=== PATIENT | female | born 1940 ===

== ENCOUNTER 2016-08-15 21:19 | Outpatient (CLI) | payer MEDICARE, BC | END 2016-08-15 21:20 | disposition critical access hospital (66) | DX: R53.1 Weakness (principal); R10.11 Right upper quadrant pain | CPT/HCPCS: A0425; A0429 ==

== ENCOUNTER 2016-08-15 21:43 | Emergency (ER) | payer MEDICARE, BC ==
[2016-08-15] MEDS ORDERED: SODIUM CHLORIDE 0.9% 1,000 ML IV ONE ×2 (21:50→23:32)
[2016-08-15 22:19] LABS: BASOPHILS % (AUTO) 0.6 %; EOSINOPHILS % (AUTO) 1.1 %; HCT - HEMATOCRIT 40.2 % (37.0-47.0); HGB - HEMOGLOBIN 13.9 g/dL (12.0-16.0); LYMPHOCYTES # (AUTO) 1.2 10^3/uL (1.5-3.5); LYMPHOCYTES % (AUTO) 27.7 %; MEAN CORPUSCULAR HEMOGLOBIN 38.6 pg (27.0-31.0); MEAN CORPUSCULAR HGB CONC 34.7 g/dL (32.0-36.0); MEAN CORPUSCULAR VOLUME 111.4 fL (81.0-99.0); MEAN PLATELET VOLUME 6.6 fL (7.9-10.8); MONOCYTES # (AUTO) 0.5 10^3/uL (0.0-1.0); MONOCYTES % (AUTO) 11.8 %; NEUTROPHILS # (AUTO) 2.5 10^3/uL (1.5-6.6); NEUTROPHILS % (AUTO) 58.8 %; NUCLEATED RED BLOOD CELLS AUTO 0.1 /100WBC; RED BLOOD COUNT 3.61 10^6/uL (4.20-5.40); RED CELL DISTRIBUTION WIDTH 13.6 % (12.0-15.0); UNCORRECTED WHITE BLOOD COUNT 4.3 x10^3/uL; WHITE BLOOD COUNT 4.3 x10^3/uL (4.8-10.8)
[2016-08-15 22:29] LABS: ALBUMIN/GLOBULIN RATIO 1.6 (1.0-2.2); BILIRUBIN,TOTAL 0.6 mg/dL (0.2-1.0); BUN - BLOOD UREA NITROGEN < 5 mg/dL (6-20); CALCIUM 8.6 mg/dL (8.5-10.3); CARBON DIOXIDE - CO2 24 mmol/L (21-32); CHLORIDE 95 mmol/L (101-111); CREATININE 0.5 mg/dL (0.4-1.0); GFR - MDRD 121 (>89); GLUCOSE 109 mg/dL (70-100); LIPASE 30 U/L (22-51); POTASSIUM 4.2 mmol/L (3.5-5.0); SODIUM 131 mmol/L (135-145); TOTAL PROTEIN 6.3 g/dL (6.7-8.2)
[2016-08-15 22:35] LABS: NP AUTO DIFFERENTIAL? NO; NP MAN DIFFERENTIAL? YES; PLATELET ESTIMATE, MANUAL NORMAL (130-450,000) (NORMAL); PLATELET MORPHOLOGY NORMAL APPEARANCE (NORMAL)
[2016-08-15 22:51] LABS: BILIRUBIN,URINE NEGATIVE (NEGATIVE)
[2016-08-15 22:52] LABS: UA w/ MICROSCOPIC CHARGE YES
[2016-08-15 22:58] LABS: UR CULTURE IF IND INDICATED
--- NOTE | 2016-08-16 00:34 | ED Physician Documentation ---
History of Present Illness - Stated complaint Stated Complaint: WEAKNESS - Chief complaint Chief Complaint: General - History obtained from History obtained from: Patient, Family, EMS - History of Present Illness Timing: Today - Additonal information Additional information: 75-year-old female found at home to be unable to ambulate adequately and significantly weak she did not have a fall and has not injured herself she does state that she has not been drinking much in way of fluids she did have some alcohol today. Review of Systems Constitutional: denies: Fever, Chills, Myalgias, Fatigue Eyes: denies: Decreased vision Ears: denies: Ear pain Nose: denies: Congestion Throat: denies: Sore throat Cardiac: denies: Chest pain / pressure, Palpitations, Pedal edema Respiratory: denies: Dyspnea, Cough GI: denies: Abdominal Pain, Nausea, Vomiting : denies: Dysuria, Frequency Skin: denies: Rash Musculoskeletal: denies: Neck pain, Back pain, Extremity pain Neurologic: reports: Generalized weakness. denies: Focal weakness, Numbness, Headache, Head injury, LOC PD PAST MEDICAL HISTORY - Past Medical History Past Medical History: Yes Cardiovascular: Congestive heart failure Respiratory: Asthma - Past Surgical History Past Surgical History: No - Present Medications Home Medications: Ambulatory Orders Medication Instructions Recorded Confirmed Sulfamethoxazole/Trimethoprim 1 each PO BID #14 tablet 08/16/16 [Sulfamethoxazole-Tmp Ds Tablet] - Allergies Allergies/Adverse Reactions: Allergies Allergy/AdvReac Type Severity Reaction Status Date / Time Penicillins Allergy Severe Hives Verified 08/15/16 22:12 - Social History Does the pt smoke?: No Smoking Status: Never smoker Does the pt drink ETOH?: Yes ETOH Use: Wine Does the pt have substance abuse?: No - Immunizations Immunizations are current?: Yes - POLST Patient has POLST: No PD ED PE NORMAL - Vitals Vital signs reviewed: Yes (Tachycardic) - General General: No acute distress, Well developed/nourished, Other (Alcohol on breath) - HEENT HEENT: Atraumatic, PERRL, EOMI - Neck Neck: Supple, no meningeal sign, No bony TTP - Cardiac Cardiac: RRR, No murmur - Respiratory Respiratory: No respiratory distress, Clear bilaterally - Abdomen Abdomen: Soft, Non tender - Back Back: No CVA TTP, No spinal TTP - Derm Derm: Normal color, Warm and dry, No rash - Extremities Extremities: No deformity, No edema - Neuro Neuro: No motor deficit, No sensory deficit - Psych Psych: Normal mood, Normal affect Results - Vitals Vitals: Vital Signs - 24 hr 08/15/16 08/15/16 08/15/16 21:46 22:23 23:16 Temperature 36.7 C Heart Rate 103 H 110 H 108 H Respiratory 18 16 18 Rate Blood Pressure 129/78 121/66 128/59 L O2 Saturation 97 93 96 08/16/16 00:33 Temperature 36.9 C Heart Rate 113 H Respiratory 15 Rate Blood Pressure 115/68 O2 Saturation 94 Oxygen O2 Source Room air - Labs Labs: Laboratory Tests 08/15/16 08/15/16 08/15/16 22:05 22:05 22:05 WBC 4.3 L RBC 3.61 L Hgb 13.9 Hct 40.2 MCV 111.4 H MCH 38.6 H MCHC 34.7 RDW 13.6 Plt Count 240 MPV 6.6 L Neut # 2.5 Lymph # 1.2 L Weston # 0.5 Eos # 0.0 Baso # 0.0 Absolute Nucleated RBC 0.00 Band Neuts % (Manual) Not Reportable Nucleated RBCs 0.1 Differential Comment MANUAL=AUTO DIFF Manual Slide Review Indicated Platelet Estimate NORMAL (130-450,000) Platelet Morphology NORMAL APPEARANCE RBC Morph Micro Appear 3+ MACROCYTOSIS Sodium 131 L Potassium 4.2 Chloride 95 L Carbon Dioxide 24 Anion Gap 12.0 BUN < 5 L Creatinine 0.5 Estimated GFR (MDRD) 121 Glucose 109 H Calcium 8.6 Total Bilirubin 0.6 AST 65 H ALT 49 Alkaline Phosphatase 68 Troponin I < 0.04 Total Protein 6.3 L Albumin 3.9 Globulin 2.4 Albumin/Globulin Ratio 1.6 Lipase 30 Urine Color Urine Clarity Urine pH Ur Specific [place] Urine Protein Urine Glucose (UA) Urine Ketones Urine Occult Blood Urine Nitrite Urine Bilirubin Urine Urobilinogen Ur Leukocyte Esterase Urine RBC Urine WBC Ur Squamous Epith Cells Urine Bacteria Ur Microscopic Review Urine Culture Comments Ethyl Alcohol 223.6 08/15/16 22:41 WBC RBC Hgb Hct MCV MCH MCHC RDW Plt Count MPV Neut # Lymph # Weston # Eos # Baso # Absolute Nucleated RBC Band Neuts % (Manual) Nucleated RBCs Differential Comment Manual Slide Review Platelet Estimate Platelet Morphology RBC Morph Micro Appear Sodium Potassium Chloride Carbon Dioxide Anion Gap BUN Creatinine Estimated GFR (MDRD) Glucose Calcium Total Bilirubin AST ALT Alkaline Phosphatase Troponin I Total Protein Albumin Globulin Albumin/Globulin Ratio Lipase Urine Color YELLOW Urine Clarity CLOUDY Urine pH 6.0 Ur Specific [place] <=1.005 Urine Protein NEGATIVE Urine Glucose (UA) NEGATIVE Urine Ketones NEGATIVE Urine Occult Blood SMALL H Urine Nitrite POSITIVE H Urine Bilirubin NEGATIVE Urine Urobilinogen 1 (NORMAL) Ur Leukocyte Esterase TRACE H Urine RBC 0-5 Urine WBC 4-5 Ur Squamous Epith Cells NONE SEEN Urine Bacteria Many H Ur Microscopic Review INDICATED Urine Culture Comments INDICATED Ethyl Alcohol Procedures - IVC sono (time) 2154 Bedside IVC sono: IVC measures (cm) (0.66), IVC collapsed c insp (cm) (complete) , Significant dehydration PD MEDICAL DECISION MAKING - ED course Complexity details: reviewed results, re-evaluated patient, considered differential, d/w patient, d/w family ED course: 75-year-old female who has been suffering for 2 years from postherpetic neuralgia on her right side was found to be extremely weak tonight and was exhibiting an ataxic gait. The ambulance is called and here on arrival to the emergency department she is found to be significantly dehydrated and she did have alcohol on her breath. The blood alcohol level was obtained and was markedly elevated. Departure - Departure Disposition: 01 Home, Self Care Clinical Impression: Dehydration Alcohol intoxication Qualifiers: Complication of substance-induced condition: with unspecified complication Qualified Code(s): F10.129 - Alcohol abuse with intoxication, unspecified Urinary tract infection Qualifiers: Urinary tract infection type: acute cystitis Hematuria presence: with hematuria Qualified Code(s): N30.01 - Acute cystitis with hematuria Condition: Stable Instructions: ED Dehydration, ED Alcohol Intoxication, ED UTI Cystitis Female Follow-Up: Carlita Robledo ARNP [Physician No Access] - Prescriptions: Sulfamethoxazole/Trimethoprim [Sulfamethoxazole-Tmp Ds Tablet] 1 each PO BID # 14 tablet
[2016-08-16] MEDS ORDERED: cefTRIAXone 1 GM in SODIUM CHLORIDE 0.9% MINIBAG 100 ML IV STA (00:36)
[2016-08-16] MEDS ORDERED: cefTRIAXone 1 GM VIAL ONE (00:48)
[2016-08-16 01:30] VITALS: BP 133/76
== END 2016-08-16 01:45 | disposition home or self-care (01) ==
LOC: EDUNIT# → ED 21:43
DX: E86.0 Dehydration (principal); F10.129 Alcohol abuse with intoxication, unspecified; N30.01 Acute cystitis with hematuria
CPT/HCPCS: 36415; 80053; 81001; 83690; 84484; 85025; 87077; 87086; 87181; 93005; 96365; 99284; G0480; 80320; 81003

== ENCOUNTER 2016-10-23 14:47 | Outpatient (CLI) | payer MEDICARE, BC ==
[2016-10-23 17:51] LABS: BASOPHILS # (AUTO) 0.1 10^3/uL (0.0-0.1); BASOPHILS % (AUTO) 0.7 %; EOSINOPHILS # (AUTO) 0.1 10^3/uL (0.0-0.7); EOSINOPHILS % (AUTO) 0.9 %; HCT - HEMATOCRIT 42.7 % (37.0-47.0); HGB - HEMOGLOBIN 14.3 g/dL (12.0-16.0); LYMPHOCYTES # (AUTO) 1.2 10^3/uL (1.5-3.5); LYMPHOCYTES % (AUTO) 14.6 %; MEAN CORPUSCULAR HEMOGLOBIN 38.3 pg (27.0-31.0); MEAN CORPUSCULAR HGB CONC 33.6 g/dL (32.0-36.0); MEAN CORPUSCULAR VOLUME 113.9 fL (81.0-99.0); MEAN PLATELET VOLUME 8.6 fL (7.9-10.8); MONOCYTES # (AUTO) 0.7 10^3/uL (0.0-1.0); MONOCYTES % (AUTO) 8.9 %; NEUTROPHILS % (AUTO) 74.9 %; NUCLEATED RED BLOOD CELLS AUTO 0.1 /100WBC; RED BLOOD COUNT 3.75 10^6/uL (4.20-5.40); RED CELL DISTRIBUTION WIDTH 13.7 % (12.0-15.0)
[2016-10-23 18:16] LABS: ALBUMIN/GLOBULIN RATIO 1.3 (1.0-2.2); BILIRUBIN,TOTAL 0.7 mg/dL (0.2-1.0); BUN - BLOOD UREA NITROGEN 5 mg/dL (6-20); CALCIUM 9.4 mg/dL (8.5-10.3); CARBON DIOXIDE - CO2 29 mmol/L (21-32); CHLORIDE 99 mmol/L (101-111); CHOL/HDL RATIO 3.4 (<4.4); CHOLESTEROL 164 mg/dL; CREATININE 0.6 mg/dL (0.4-1.0); GFR - MDRD 98 (>89); GLUCOSE 92 mg/dL (70-100); HDL CHOLESTEROL 48 mg/dL; LDL/HDL RATIO 2.1 (<4.4); POTASSIUM 3.7 mmol/L (3.5-5.0); SODIUM 136 mmol/L (135-145); TOTAL PROTEIN 6.9 g/dL (6.7-8.2); TRIGLYCERIDES 71 mg/dL; VLDL CHOLESTEROL 14 mg/dL
== END 2016-10-23 14:48 | disposition home or self-care (01) ==
LOC: LAB.F 14:47
PROVIDERS: ATTEND Internal Medicine
DX: R35.8 Other polyuria (principal); I50.9 Heart failure, unspecified; R32 Unspecified urinary incontinence; R06.00 Dyspnea, unspecified
CPT/HCPCS: 36415; 80053; 80061; 81001; 83036; 83880; 84443; 85025

== ENCOUNTER 2016-10-25 14:42 | Outpatient (CLI) | payer MEDICARE, BC ==
[2016-10-25 17:40] LABS: BILIRUBIN,URINE NEGATIVE (NEGATIVE)
== END 2016-10-25 14:43 ==
LOC: LAB.R 14:42
PROVIDERS: ATTEND Internal Medicine
DX: R35.8 Other polyuria (principal); I50.9 Heart failure, unspecified; R32 Unspecified urinary incontinence
CPT/HCPCS: 81001

== ENCOUNTER 2016-11-07 11:11 | Outpatient (CLI) | payer MEDICARE, BC ==
[2016-11-07 18:47] LABS: HEMOGLOBIN A1C 0.49 g/dL; IMMATURE RETIC FRACTION 0.52; RED BLOOD COUNT 4.44 10^6/uL (4.20-5.40)
[2016-11-07 19:10] LABS: FOLATE 6.24 ng/mL (5.90 - >24.8)
== END 2016-11-07 11:12 | disposition home or self-care (01) ==
LOC: LAB.F 11:11
PROVIDERS: ATTEND Internal Medicine
DX: D75.89 Other specified diseases of blood and blood-forming organs (principal); R20.2 Paresthesia of skin; R74.0 Nonspecific elevation of levels of transaminase and lactic acid dehydrogenase [LDH]
CPT/HCPCS: 36415; 82607; 82746; 83036; 84450; 84460; 85044

== ENCOUNTER 2016-11-13 11:21 | Outpatient (CLI) | payer MEDICARE, BC ==
--- NOTE | 2016-11-14 16:08 | Mammography Report ---
DIGITAL SCREENING MAMMOGRAM: 11/13/2016 CLINICAL INDICATION: A 75-year-old nulliparous patient with history of benign biopsy, for screening. COMPARISON: 07/2014, 02/2012, 05/2009. TECHNIQUE: Routine CC and MLO projections were obtained of the breasts. FINDINGS: The breasts again demonstrate heterogeneously dense fibroglandular parenchyma bilaterally. Intramammary lymph nodes are stable. No suspicious masses, clustered microcalcifications, or regions of architectural distortion are identified. IMPRESSION: BENIGN FINDINGS. RECOMMENDATION: ROUTINE ANNUAL SCREENING UNLESS OTHERWISE CLINICALLY INDICATED. BIRADS CATEGORY 2-BENIGN FINDINGS. STANDARD QUALIFYING STATEMENTS 1. This examination was reviewed with the aid of Computer-Aided Detection (CAD). 2. A negative or benign imaging report should not delay biopsy if clinically suspicious findings are present. Consider surgical consultation if warranted. More than 5% of cancers are not identified by i maging. 3. Dense breasts may obscure an underlying neoplasm. JOB #: [id number] EXT JOB #:[id number]
== END 2016-11-13 11:22 | disposition home or self-care (01) ==
LOC: DI.S 11:21
PROVIDERS: ATTEND Internal Medicine
DX: Z12.31 Encounter for screening mammogram for malignant neoplasm of breast (principal)
CPT/HCPCS: 77067

== ENCOUNTER 2017-09-26 12:23 | Outpatient (CLI) | payer MEDICARE, BC | END 2017-09-26 12:24 | disposition home or self-care (01) | LOC: RT 12:23 | PROVIDERS: ATTEND Internal Medicine Cardiovascular Disease | DX: I49.9 Cardiac arrhythmia, unspecified (principal) | CPT/HCPCS: 93005 ==

== ENCOUNTER 2019-01-06 09:31 | Outpatient (CLI) | payer MEDICARE, BC ==
[2019-01-06 17:11] LABS: BASOPHILS # (AUTO) 0.1 10^3/uL (0.0-0.1); BASOPHILS % (AUTO) 0.9 %; EOSINOPHILS # (AUTO) 0.3 10^3/uL (0.0-0.7); HGB - HEMOGLOBIN 14.9 g/dL (12.0-16.0); LYMPHOCYTES # (AUTO) 1.5 10^3/uL (1.5-3.5); LYMPHOCYTES % (AUTO) 22.7 %; MEAN CORPUSCULAR HEMOGLOBIN 34.7 pg (27.0-31.0); MEAN CORPUSCULAR HGB CONC 32.9 g/dL (32.0-36.0); MEAN CORPUSCULAR VOLUME 105.3 fL (81.0-99.0); MEAN PLATELET VOLUME 9.6 fL (7.9-10.8); MONOCYTES # (AUTO) 0.7 10^3/uL (0.0-1.0); MONOCYTES % (AUTO) 10.9 %; NEUTROPHILS # (AUTO) 4.1 10^3/uL (1.5-6.6); NEUTROPHILS % (AUTO) 61.1 %; PLT - PLATELET COUNT 293 10^3/uL (130-450); RED CELL DISTRIBUTION WIDTH 11.7 % (12.0-15.0); WHITE BLOOD COUNT 6.7 x10^3/uL (4.8-10.8)
[2019-01-06 17:28] LABS: ALBUMIN 4.5 g/dL (3.2-5.5); ALBUMIN/GLOBULIN RATIO 1.6 (1.0-2.2); CALCIUM 9.1 mg/dL (8.5-10.3); CREATININE 0.5 mg/dL (0.4-1.0); TOTAL PROTEIN 7.4 g/dL (6.7-8.2)
== END 2019-01-06 09:32 | disposition home or self-care (01) ==
LOC: LAB.S 09:31
PROVIDERS: ATTEND Physician Assistant Medical
DX: I50.9 Heart failure, unspecified (principal); D75.89 Other specified diseases of blood and blood-forming organs
CPT/HCPCS: 36415; 80053; 85025

== ENCOUNTER 2020-02-08 11:00 | Outpatient (CLI) | payer MEDICARE, BC | END 2020-02-08 23:59 | disposition home or self-care (01) | LOC: LAB.R 11:00 | PROVIDERS: ATTEND Physician Assistant Medical | DX: B35.4 Tinea corporis (principal); L03.116 Cellulitis of left lower limb | CPT/HCPCS: 87070; 87077; 87181; 87205 ==

== ENCOUNTER 2020-10-08 10:29 | Outpatient (CLI) | payer MEDICARE, BC ==
--- NOTE | 2020-10-08 11:09 | XRAY Report ---
PROCEDURE: Chest 2 View X-Ray INDICATIONS: HEART FAILURE TECHNIQUE: 2 view(s) of the chest. COMPARISON: March 28, 2015 chest x-ray FINDINGS: Surgical changes and devices: None. Lungs and pleura: No pleural effusions or pneumothorax. Lungs are clear. Mediastinum: Mediastinal contours are normal. Heart size is normal. Bones and chest wall: Posterolateral right sixth rib fracture. Soft tissues appear unremarkable. IMPRESSION: No acute cardiopulmonary findings. Posterolateral right sixth rib fracture. Reviewed by: Chad Galvez on 10/08/2020 10:08 AM DEANDRA Approved by: Chad Galvez on 10/08/2020 10:08 AM DEANDRA Station ID: [id number]
== END 2020-10-08 23:59 | disposition home or self-care (01) ==
LOC: DI.S 10:29
PROVIDERS: ATTEND Emergency Medicine
DX: I50.9 Heart failure, unspecified (principal); S22.31XA Fracture of one rib, right side, initial encounter for closed fracture

== ENCOUNTER 2021-02-21 08:48 | Outpatient (CLI) | payer MEDICARE, BC ==
[2021-02-21 14:35] LABS: BASOPHILS # (AUTO) 0.1 10^3/uL (0.0-0.1); BASOPHILS % (AUTO) 0.9 %; EOSINOPHILS # (AUTO) 0.1 10^3/uL (0.0-0.7); EOSINOPHILS % (AUTO) 1.9 %; HCT - HEMATOCRIT 45.7 % (37.0-47.0); HGB - HEMOGLOBIN 15.3 g/dL (12.0-16.0); LYMPHOCYTES # (AUTO) 1.3 10^3/uL (1.5-3.5); LYMPHOCYTES % (AUTO) 16.7 %; MEAN CORPUSCULAR HGB CONC 33.5 g/dL (32.0-36.0); MEAN CORPUSCULAR VOLUME 110.4 fL (81.0-99.0); MEAN PLATELET VOLUME 9.6 fL (7.9-10.8); MONOCYTES # (AUTO) 0.8 10^3/uL (0.0-1.0); NEUTROPHILS # (AUTO) 5.2 10^3/uL (1.5-6.6); PLT - PLATELET COUNT 398 10^3/uL (130-450); RED BLOOD COUNT 4.14 10^6/uL (4.20-5.40); RED CELL DISTRIBUTION WIDTH 11.5 % (12.0-15.0); WHITE BLOOD COUNT 7.5 x10^3/uL (4.8-10.8)
[2021-02-21 15:07] LABS: SLIDE REVIEW? Indicated
[2021-02-21 15:15] LABS: ALBUMIN 4.1 g/dL (3.2-5.5); ALBUMIN/GLOBULIN RATIO 1.3 (1.0-2.2); ALKALINE PHOSPHATASE 70 IU/L (42-121); ALT ALANINE AMINOTRANSFERASE 13 IU/L (10-60); AST ASPARTATE AMINOTRANSFERASE 23 IU/L (10-42); BILIRUBIN,TOTAL 1.1 mg/dL (0.2-1.0); BUN - BLOOD UREA NITROGEN 8 mg/dL (6-20); CALCIUM 9.5 mg/dL (8.5-10.3); CARBON DIOXIDE - CO2 27 mmol/L (21-32); CHLORIDE 97 mmol/L (101-111); CHOL/HDL RATIO 3.1 (<4.4); CHOLESTEROL 225 mg/dL; CREATININE 0.7 mg/dL (0.4-1.0); GFR - MDRD 81 (>89); GLUCOSE 98 mg/dL (70-100); HDL CHOLESTEROL 73 mg/dL; LDL CHOLESTEROL,CALCULATED 142 mg/dL; LDL/HDL RATIO 1.9 (<4.4); POTASSIUM 4.2 mmol/L (3.5-5.0); SODIUM 136 mmol/L (135-145); TOTAL PROTEIN 7.2 g/dL (6.7-8.2); TRIGLYCERIDES 49 mg/dL; VLDL CHOLESTEROL 10 mg/dL
[2021-02-21 15:16] LABS: THYROID STIMULATING HORMONE 1.05 uIU/mL (0.34-5.60)
[2021-02-21 16:28] LABS: RBC MORPHOLOGY (MULTIPLE) 2+ MACROCYTOSIS (NORMAL)
[2021-02-21 16:29] LABS: PLATELET ESTIMATE, MANUAL NORMAL (130-450,000) (NORMAL); PLATELET MORPHOLOGY NORMAL APPEARANCE (NORMAL)
== END 2021-02-21 08:49 | disposition home or self-care (01) ==
LOC: LAB.S 08:48
PROVIDERS: ATTEND Registered Nurse
DX: I73.9 Peripheral vascular disease, unspecified (principal); I87.2 Venous insufficiency (chronic) (peripheral); I11.0 Hypertensive heart disease with heart failure; I50.9 Heart failure, unspecified; D75.89 Other specified diseases of blood and blood-forming organs
CPT/HCPCS: 36415; 80053; 80061; 83721; 84443; 85025

== ENCOUNTER 2022-08-06 08:55 | Outpatient (CLI) | payer MEDICARE, BC | END 2022-08-06 23:59 | disposition critical access hospital (66) | LOC: EMS 08:55 | DX: R53.1 Weakness (principal); R05.9 Cough, unspecified; R32 Unspecified urinary incontinence; R09.89 Other specified symptoms and signs involving the circulatory and respiratory systems | CPT/HCPCS: A0425; A0429 ==

== ENCOUNTER 2022-08-06 09:19 | Inpatient (IN) | payer MEDICARE, BC ==
--- NOTE | 2022-08-06 09:57 | XRAY Report ---
PROCEDURE: Chest 1 View X-Ray INDICATIONS: chest pain TECHNIQUE: One view of the chest was acquired. COMPARISON: None. FINDINGS: Surgical changes and devices: None. Lungs and pleura: Patchy left basilar airspace opacity. Mediastinum: Mediastinal contours appear normal. Heart size is normal. Bones and chest wall: No suspicious bony lesions. Overlying soft tissues appear unremarkable. Hea led rib fracture deformities. IMPRESSION: Patchy left basilar airspace opacity, either atelectasis or infection. Reviewed by: Andrew Brandt on 08/06/2022 9:55 AM PDT Approved by: Andrew Brandt on 08/06/2022 9:55 AM PDT Station ID: [id number]
[2022-08-06 10:01] LABS: BASOPHILS % (AUTO) 0.3 %; HCT - HEMATOCRIT 44.3 % (37.0-47.0); HGB - HEMOGLOBIN 15.7 g/dL (12.0-16.0); LYMPHOCYTES # (AUTO) 0.4 10^3/uL (1.5-3.5); LYMPHOCYTES % (AUTO) 3.1 %; MEAN CORPUSCULAR HEMOGLOBIN 37.7 pg (27.0-31.0); MEAN CORPUSCULAR HGB CONC 35.4 g/dL (32.0-36.0); MEAN CORPUSCULAR VOLUME 106.5 fL (81.0-99.0); MEAN PLATELET VOLUME 9.6 fL (7.9-10.8); MONOCYTES # (AUTO) 1.6 10^3/uL (0.0-1.0); MONOCYTES % (AUTO) 13.8 %; NEUTROPHILS # (AUTO) 9.7 10^3/uL (1.5-6.6); NEUTROPHILS % (AUTO) 82.5 %; PLT - PLATELET COUNT 154 10^3/uL (130-450); RED BLOOD COUNT 4.16 10^6/uL (4.20-5.40); RED CELL DISTRIBUTION WIDTH 11.2 % (12.0-15.0); WHITE BLOOD COUNT 11.8 x10^3/uL (4.8-10.8)
[2022-08-06 10:03] LABS: SLIDE REVIEW? Indicated
[2022-08-06 10:13] LABS: ALBUMIN 3.8 g/dL (3.2-5.5); ALBUMIN/GLOBULIN RATIO 1.1 (1.0-2.2); BILIRUBIN,TOTAL 1.4 mg/dL (0.2-1.0); CALCIUM 8.8 mg/dL (8.5-10.3); CREATININE 0.6 mg/dL (0.4-1.0); POTASSIUM 3.5 mmol/L (3.5-5.0); TOTAL PROTEIN 7.3 g/dL (6.7-8.2)
[2022-08-06 10:17] LABS: PLATELET ESTIMATE, MANUAL NORMAL (130-450,000) (NORMAL); PLATELET MORPHOLOGY NORMAL APPEARANCE (NORMAL); RBC MORPHOLOGY (MULTIPLE) NORMAL APPEARANCE (NORMAL); WBC MORPHOLOGY (MULTIPLE) NORMAL APPEARANCE (NORMAL)
[2022-08-06] MEDS: IPRATROPIUM/ALBUTEROL 3 ML NEB INH STA ×2 (10:39→11:39)
[2022-08-06] MEDS ORDERED: DEXAMETHASONE 10 MG/ML VIAL IVP STA (10:52)
[2022-08-06] MEDS ORDERED: AZITHROMYCIN INJ 500 MG in SODIUM CHLORIDE 0.9% 250 ML IV STA (10:55)
[2022-08-06] MEDS ORDERED: cefTRIAXone 2 GM in SODIUM CHLORIDE 0.9% MINIBAG 100 ML IV STA (10:56)
[2022-08-06 11:04] LABS: CORONAVIRUS 229E-RESP PCR NOT DETECTED; CORONAVIRUS HKU1-RESP PCR NOT DETECTED; CORONAVIRUS NL63-RESP PCR NOT DETECTED; CORONAVIRUS OC43-RESP PCR NOT DETECTED
[2022-08-06 11:06] LABS: B. PERTUSSIS- RESP PCR PANEL NOT DETECTED; C. PNEUMONIAE- RESP PCR PANEL NOT DETECTED; HUMAN METAPNEUMOVIRUS NOT DETECTED; INFLUENZA A- RESP PCR PANEL NOT DETECTED; M. PNEUMONIAE- RESP PCR PANEL NOT DETECTED; RHINOVIRUS/ENTEROVIRUS NOT DETECTED; SARS-CoV-2 -RESP PCR PANEL DETECTED
[2022-08-06 11:07] LABS: B. PARAPERTUSSIS- RESP PCR PAN NOT DETECTED; INFLUENZA B - RESP PCR PANEL NOT DETECTED; PARAINFLUENZA VIRUS 1 NOT DETECTED; PARAINFLUENZA VIRUS 2 NOT DETECTED; PARAINFLUENZA VIRUS 3 NOT DETECTED; PARAINFLUENZA VIRUS 4 NOT DETECTED; RSV- RESP PCR PANEL NOT DETECTED
[2022-08-06] MEDS ORDERED: oxyCODONE 5 MG TABLET PO PRN (12:06)
[2022-08-06] MEDS ORDERED: ACETAMINOPHEN 325 MG TABLET PO PRN (12:06)
[2022-08-06] MEDS ORDERED: ONDANSETRON ODT 4 MG TABLET TL PRN (12:06)
[2022-08-06] MEDS ORDERED: SODIUM CHLORIDE FLUSH 0.9% 10 ML SYRINGE IVP PRN (12:06)
[2022-08-06] MEDS ORDERED: ONDANSETRON 4 MG/2 ML VIAL IVP PRN (12:06)
--- NOTE | 2022-08-06 12:08 | ED Physician Documentation ---
History of Present Illness - Stated complaint Stated Complaint: WEAKNESS - Chief complaint Chief Complaint: General - History obtained from History obtained from: Patient, EMS - Additonal information Additional information: The patient comes to the emergency department chief complaint of difficulty breathing and productive cough for the last approximately 3 days. She states that she is just felt progressively worse with weakness and some shortness of breath, especially if she tries to do anything besides just sitting. The patient denies any fevers or chills. She denies any GI symptoms. No urinary symptoms. The patient has not had any known sick contacts. She lives at home with her daughter and her . Patient states that she has a history of asthma but no COPD that she knows of. She also has a history of congestive heart failure. She states she smoked for a while when she was a young adult but otherwise, has not smoked in years. She denies any chest pain or history of coronary artery disease.The medics report that when they got the patient up to move her to the stretcher, her oxygen went from the low to mid 90s on room air down to the low 80s with that exertion. 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 : None HEENT: None Psych: None Musculoskeletal: None Derm: None - Past Surgical History Past Surgical History: No - Present Medications Home Medications: Ambulatory Orders Medication Instructions Recorded Confirmed Metoprolol Succinate [Toprol Xl] 25 mg PO DAILY 08/06/22 08/06/22 - Allergies Allergies/Adverse Reactions: Allergies Allergy/AdvReac Type Severity Reaction Status Date / Time Penicillins Allergy Severe Hives Verified 08/06/22 09:26 - Social History Does the pt smoke?: No Smoking Status: Former smoker Does the pt drink ETOH?: Yes Does the pt have substance abuse?: No - Immunizations Immunizations are current?: Yes - POLST Patient has POLST: No PD ED PE NORMAL - Vitals Vital signs reviewed: Yes - General General: Alert and oriented X 3, Well developed/nourished, Other (Mild respiratory distress) - HEENT HEENT: Atraumatic, PERRL, EOMI, Moist mucous membranes - Neck Neck: Supple, no meningeal sign - Cardiac Cardiac: RRR, No murmur, Strong equal pulses - Respiratory Respiratory: Other (Heavy rattles and rales grossly with every breath. Mild laboring of respirations. The same sounds are audible throughout the patient's entire bilateral lung [place] tor[place], the patient does have good air movement throughout her entire lung [place] tor[place].No wheezing.) - Abdomen Abdomen: Soft, Non tender, Non distended - Derm Derm: Normal color, Warm and dry, No rash - Extremities Extremities: No deformity, No edema - Neuro Neuro: Other (Alert and grossly oriented; grossly intact neurologic exam.) - Psych Psych: Normal mood, Normal affect Results - Vitals Vitals: Vital Signs - 24 hr 08/06/22 08/06/22 08/06/22 09:26 09:44 09:45 Temperature 36.3 C L Heart Rate 106 H 104 H Respiratory 24 25 H 24 Rate Blood Pressure 152/84 H O2 Saturation 95 88 L 92 If not protocol 4 : Oxygen Flow, liters/minute 08/06/22 08/06/22 08/06/22 10:35 11:31 12:02 Temperature Heart Rate 108 H 12 L 100 Respiratory 24 24 32 H Rate Blood Pressure 115/60 144/77 H O2 Saturation 90 L 93 If not protocol 4 4 : Oxygen Flow, liters/minute Oxygen O2 Source Nasal cannula Oxygen Flow Rate 4 - EKG (time done) 0956 EKG releavant findings:: EKG personally interpreted by author of this note. Relevant findings are: Rate: Rate (enter#) (106) Rhythm: NSR, Other (Multiple PVCs) Colbert: Normal Intervals: Normal RI QRS: Normal Ischemia: Normal ST segments Compare to prior EKG: Old EKG unavailable Computer interpretation: Agree with computer - Labs Labs: Laboratory Tests 08/06/22 08/06/22 08/06/22 09:40 09:40 09:40 WBC 11.8 H RBC 4.16 L Hgb 15.7 Hct 44.3 MCV 106.5 H MCH 37.7 H MCHC 35.4 RDW 11.2 L Plt Count 154 MPV 9.6 Neut # (Auto) 9.7 H Lymph # (Auto) 0.4 L D[place]y # (Auto) 1.6 H Eos # (Auto) 0.0 Baso # (Auto) 0.0 Absolute Nucleated RBC 0.00 Nucleated RBC % 0.0 Manual Slide Review Indicated WBC Morphology NORMAL APPEARANCE Platelet Estimate NORMAL (130-450,000) Platelet Morphology NORMAL APPEARANCE RBC Morph Micro Appear NORMAL APPEARANCE Sodium 129 L Potassium 3.5 Chloride 89 L Carbon Dioxide 22 Anion Gap 18.0 H BUN 5 L Creatinine 0.6 Estimated GFR (MDRD) 96 Glucose 104 H Calcium 8.8 Total Bilirubin 1.4 H AST 134 H ALT 84 H Alkaline Phosphatase 54 B-Natriuretic Peptide 244 H Total Protein 7.3 Albumin 3.8 Globulin 3.5 Albumin/Globulin Ratio 1.1 Lipase 26 Nasal Adenovirus (PCR) Nasal B. parapertussis DNA (PCR) Nasal Coronavir 229E PCR Nasal Coronavir HKU1 PCR Nasal Coronavir NL63 PCR Nasal Coronavir OC43 PCR Nasal Enterovir/Rhinovir PCR Nasal Influenza B PCR Nasal Influenza A PCR Nasal Parainfluen 1 PCR Nasal Parainfluen 2 PCR Nasal Parainfluen 3 PCR Nasal Parainfluen 4 PCR Nasal RSV (PCR) Nasal B.pertussis DNA PCR Nasal C.pneumoniae (PCR) Mauricio Human Metapneumo PCR Nasal M.pneumoniae (PCR) Nasal SARS-CoV-2 (PCR) Ethyl Alcohol 08/06/22 08/06/22 09:40 09:50 WBC RBC Hgb Hct MCV MCH MCHC RDW Plt Count MPV Neut # (Auto) Lymph # (Auto) Dooly # (Auto) Eos # (Auto) Baso # (Auto) Absolute Nucleated RBC Nucleated RBC % Manual Slide Review WBC Morphology Platelet Estimate Platelet Morphology RBC Morph Micro Appear Sodium Potassium Chloride Carbon Dioxide Anion Gap BUN Creatinine Estimated GFR (MDRD) Glucose Calcium Total Bilirubin AST ALT Alkaline Phosphatase B-Natriuretic Peptide Total Protein Albumin Globulin Albumin/Globulin Ratio Lipase Nasal Adenovirus (PCR) NOT DETECTED Nasal B. parapertussis DNA (PCR) NOT DETECTED Nasal Coronavir 229E PCR NOT DETECTED Nasal Coronavir HKU1 PCR NOT DETECTED Nasal Coronavir NL63 PCR NOT DETECTED Nasal Coronavir OC43 PCR NOT DETECTED Nasal Enterovir/Rhinovir PCR NOT DETECTED Nasal Influenza B PCR NOT DETECTED Nasal Influenza A PCR NOT DETECTED Nasal Parainfluen 1 PCR NOT DETECTED Nasal Parainfluen 2 PCR NOT DETECTED Nasal Parainfluen 3 PCR NOT DETECTED Nasal Parainfluen 4 PCR NOT DETECTED Nasal RSV (PCR) NOT DETECTED Nasal B.pertussis DNA PCR NOT DETECTED Nasal C.pneumoniae (PCR) NOT DETECTED Mauricio Human Metapneumo PCR NOT DETECTED Nasal M.pneumoniae (PCR) NOT DETECTED Nasal SARS-CoV-2 (PCR) DETECTED A Ethyl Alcohol < 5.0 - Rads (name of study) Chest x-ray Relevant Findings:: Final report received, See rad report (Patchy left basilar airspace opacity either atelectasis or infection.) PD Medical Decision Making - ED course Complexity details: reviewed old records, reviewed results, re-evaluated patient, considered differential, d/w patient, d/w erp consultant ED course: The patient was given a DuoNeb and Decadron upon arrival. I was concerned about her heavy secretions, though she was not in severe respiratory distress. I obtained a chest x-ray and surprisingly, this showed fairly clear lungs except for a small left lower lobe infiltrate. The patient initially had room air sats in the mid 90s as long as she was sitting still in bed. However even sitting her up to listen to her lungs immediately dropped her oxygen to the low 90s. Patient was found to have desaturations intermittently into the low 80s with good Plath even just at rest in her room. The patient became visibly more anxious when her came to visit and complained that her breathing felt worse, though she did not seem worse clinically from an objective standpoint. However, she also has not improved with her DuoNeb and steroids. Her resp iratory PCR came back positive for COVID. Laboratory studies were unremarkable other than some minor abnormalities, including a mild elevation of her BNP. I spoke with Dr. Coyle after giving the patient some IV antibiotics, As the patient did seem to have a very low threshold for desaturation and given her age and COVID positivity, I felt she was at risk for decompensation. Dr. Coyle did agree to admit the patient to her service. Patient was also agreeable to this plan. Departure - Departure Disposition: 66 [facility] DC/Xfer Clinical Impression: COVID-19, Hypoxia Pneumonia Qualifiers: Pneumonia type: due to unspecified organism Laterality: left Lung location: lower lobe of lung Qualified Code(s): J18.9 - Pneumonia, unspecified organism Condition: Serious
[2022-08-06] MEDS ORDERED: NON FORMULARY MED (Remdesivir 200 MG) IVP ONE (12:11)
[2022-08-06] MEDS ORDERED: SODIUM CHLORIDE 0.9% 1,000 ML IV SCH (13:00)
[2022-08-06] MEDS ORDERED: REMDESIVIR 200 MG in SODIUM CHLORIDE 0.9% 250 ML IV ONE (14:00)
[2022-08-06] MEDS: ENOXAPARIN 40 MG/0.4 ML SYRINGE SUBQ SCH (14:05)
[2022-08-06] MEDS: ZINC OXIDE 20% OINT 30 GM TUBE TOP PRN (14:11)
[2022-08-06] MEDS: IPRATROPIUM/ALBUTEROL 3 ML NEB INH SCH ×2 (16:09→21:04)
--- NOTE | 2022-08-06 16:40 | PHARMACY PROGRESS NOTE ---
- Best Possible Medication History Admit Date and Time: 08/06/22 1206 Processed by: Pharmacy Medication History completed: Yes Patient Interview: Completed Secondary Source(s): Pharmacy records As the person ultimately responsible for medication therapy, providers are able to order a medication from an existing home medication list in [facility] via the "Reconcile Routine" prior to Confirmation of that medication by patient support specialist. Such practice is discouraged except when the physician, in their clinical judgment, deems that a medical need exists for a medication without regard to previous use.
--- NOTE | 2022-08-06 18:33 | HISTORY & PHYSICAL EXAMINATION ---
Chief Complaint - Chief Complaint Chief Complaint: Cough and shortness of breath History of Present Illness - Admitted From Admitted From:: Home - History Obtained From Records Reviewed: [facility] History obtained from: Patient and Dr. Krueger Exam Limitations: Patient is deaf - History of Present Illness HPI Comment/Other: She tried getting her hearing aids for me, but after 10 minutes of struggling she just could not get them in and I spoke to her in a very loud voice through the mask. Made it difficult to get a history. She is essentially a very reclusive elderly woman who lives with her . They have been for 59 years and they live [place] their [place]. [place] They came from [place]. She is an ex-smoker. But only smoked a few years when she was in college to stop smoking at the age of 22. That would have been about 1962. She likes drinking 2 glasses of wine a night. She shrugs and says that some people would regard her as "an alcoholic" in the past. But she did not drink anything but 1 now. No history of withdrawal or seizures. She is followed by Preeti Gayle in the [address] [facility]. She has had increasing cough, chest congestion, that finally made her so weak that she had to come in. Starting yesterday, she was so weak that she could not get up and started sleeping on the floor. She is incontinent of urine but she has been incontinent for months. She has no appetite. Even though the cough sounds really phlegmy, she is unable to bring up any phlegm. She denies abd ominal pain, diarrhea, urgency, frequency. She is usually independent with activities of daily living. Temperature was 36.3, heart rate 106, blood pressure 152/84, respirations 24 and she was 95% on room air. When she was in the gurney, at rest, without speaking, she maintained his O2 sat. When she started speaking or try to rearrange her self on the gurney O2 sat would drop to 88%. Tremendous coughing and wheezing. Chest x-ray had a patchy left basilar opacity, either atelectasis or infection. PCR panel was positive for COVID-19. Sodium was 129, BUN 5, creatinine 0.6. Total bili 1.4, AST 134, ALT 84. BNP 244. White cell count was 8 point scratch that was cell count was 11.8. Hemoglobin 15.7. Alcohol less than 5. In the emergency room she received fluids, several nebulizer treatments, Solu- Medrol. She continued to be coughing, short of breath, and dropping her O2 sats when she spoke. Dr. Krueger and I discussed this case. Overall she is an 81-year-old female with no major medical illnesses but she would be at risk for severe complications from COVID-pneumonia. I am admitting her inpatient on the basis of her tachypnea, tachycardia, hypoxia with COVID infection causing acute bronchitis.She is startled that she has COVID. She says that she never leaves the house. The only time she leaves to go see her doctor at the clinic. Her is the one that goes to the grocery store and brings back groceries, etc. He is not ill. She does have occasional neighbors that come visit but she has not seen him in weeks and as far she knows no one is ill. In reviewing her outpatient chart, she had an episode of chest pain in February 2015. It was pleuritic, worse when she laid down. She had a pleural effusion and started on Lasix. Given the diagnosis of congestive heart failure but it was not associated with shortness of breath, leg edema or weight gain. When she took the Lasix she was back to normal and did not have any concerns. Echocardiogram showed a normal ejection fraction. She was seen in consult by [facility] cardiology in April 2015. The research development director reviewed the history and feels that her chest pain was most likely pleurisy or shingles which was present at that time. It was recommended that she would benefit from a low-dose beta-noelle and/or an MESFIN inhibitor for diastolic dysfunction that was mild. The patient was not in favor of this. History - Past Medical History Cardiovascular: reports: Congestive heart failure (Diastolic. 2 echocardiogram showed normal ejection fractions.) Respiratory: reports: Asthma (Usually mild and associated with allergies. 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 - Past Surgical History General: reports: Colonoscopy (2006, normal) /MID LEVEL JAVA DEVELOPER: reports: Other (Lumpectomy 2001) HEENT: reports: Cataracts - Family & Social History Family History Comment/Other: Mother at age 82 of complications of radiation and chemo for ovarian Or uterine. She does not know which. Dad at age 86 of a heart attack. 2 sisters. One of complications of ovarian cancer after already surviving colon cancer. Patient has no children Living arrangement: At home Living Situation: With spouse/s.o. Social History Notes: Her was a professor at [employer]. They also lived in [place]. Retired would be and then 12 years ago. She smoked only in college for 3 to 4 years. Probably stopped at the age of 22. She has been told that she drinks too much but she has no history of cirrhosis, withdrawal, blackouts, seizures. Liver enzymes elevated, chronic macrocytosis. Currently drinking 2 glasses of wine a day. She and her live in their own home and are independent with activities of daily living. - Substance History Use: Uses substance without health or social issues: NONE - POLST Patient has POLST: No Meds/Allgy - Home Medications Home Medications: Ambulatory Orders Medication Instructions Recorded Confirmed Metoprolol Succinate [Toprol Xl] 25 mg PO DAILY 08/06/22 08/06/22 estradioL [Estradiol] 1 tab VG Q48H 08/06/22 08/06/22 - Allergies Allergies/Adverse Reactions: Allergies Allergy/AdvReac Type Severity Reaction Status Date / Time Penicillins Allergy Severe Hives Verified 08/06/22 09:26 Review of Systems - Constitutional Constitutional: reports: Fatigue, Malaise, Poor appetite - Eyes Eyes: denies: Pain, Irritation, Amaurosis, Blurred vision - Ears, Nose & Throat Ears, Nose & Throat: reports: Hearing loss, Hearing aids, Nasal obstruction, Nasal congestion, Postnasal drainage, Hoarseness - Cardiovascular Cariovascular: reports: Exertional dyspnea, Decr. exercise tolerance. denies: Palpitations, Chest pain, Edema - Respiratory Respiratory: reports: Cough, Sputum production, Wheezing, SOB at rest, SOB with exertion - Gastrointestinal Gastrointestinal: denies: Abdominal pain, Abdominal distention, Constipation, Diarrhea, Change in bowel habits - Genitourinary Genitourinary: reports: Incontinence. denies: Dysuria, Frequency, Urgency - Musculoskeletal Musculoskeletal: reports: Muscle aches, Joint pain. denies: Muscle pain, Back pain - Integumentary Integumentary: denies: Rash, Pruritis, Lesions, Dryness - Neurological Neurological: reports: General weakness, Numbness. denies: Focal weakness, Headache, Dizziness, Memory problems, Pre-existing deficit, Abnormal gait, Seizures, Incoordination, Slurred speech - Psychiatric Psychiatric: denies: Depression, Anxiety, Suicidal - Endocrine Endocrine: denies: Polyuria, Polydypsia, Polyphagia - Hematologic/Lymphatic Hematologic/Lymphatic: denies: Anemia, Bruising, Petechiae Prior Level of Functionality: Independent with dressing herself, feeding herself. Light housekeeping chores. Does not use any durable medical equipment. Lives in her own home with her . Exam - Vital Signs Reviewed Vital Signs: Yes Vital Signs: Vital Signs x48h Temp Pulse Pulse Resp BP BP Pulse Ox 08/06/22 16:18 36.9 C 100 24 91/75 100 08/06/22 16:14 95 22 08/06/22 15:10 93 08/06/22 15:00 90 L 08/06/22 14:54 29 H 88 L 08/06/22 14:45 28 H 88 L 08/06/22 13:48 37.5 C 95 25 H 116/60 95 08/06/22 13:22 08/06/22 13:04 37.1 C 106 H 24 96/60 94 08/06/22 12:02 100 32 H 144/77 H 93 08/06/22 11:31 12 L 24 115/60 90 L 08/06/22 10:35 108 H 24 O2 Flow Rate 08/06/22 16:18 4 08/06/22 16:14 15 08/06/22 15:10 15 08/06/22 15:00 15 08/06/22 14:54 10 08/06/22 14:45 6 08/06/22 13:48 3 08/06/22 13:22 3 08/06/22 13:04 3 08/06/22 12:02 4 08/06/22 11:31 4 08/06/22 10:35 - Physical Exam General Appearance: positive: Alert, Moderate distress (Elderly female with coughing, shortness of breath, so fatigued that the effort of putting her hearing aids and starts to make her hands shake) Eyes Bilateral: positive: PERRL, EOMI, Other (Glasses) ENT: positive: Other (Rhinorrhea, coryza, sinus congestion) Neck: positive: No JVD, Lymphadenopathy (R), Lymphadenopathy (L). negative: Stiff neck Respiratory: positive: Wheezes, Rhonchi (Gurgling rhonchi diffusely), Other (Sitting in bed, with nasal cannula and no speaking she is comfortable. With interview and exam she starts to cough, gets short of breath but recovers quickly) Cardiovascular: positive: Regular rate & rhythm, Systolic murmur Peripheral Pulses: positive: 2+, 1+ Abdomen: positive: Non-tender, No organomegaly, Nml bowel sounds, No distention Skin: positive: Warm, Dry Extremities: positive: Full ROM, Pedal edema (Trace around the ankles) Neurologic/Psychiatric: positive: Oriented x3, Motor nml (Tremulous with e xertion. Exhausted easily. No focal deficits). negative: CN's nml (2-12) (Very deaf) Conclusion/Plan - Problem List (1) Acute respiratory failure with hypoxia Conclusion/Plan: Non-smoker, previous history of minimal asthma. She appears to have an acute infection that is decompensated a relatively stable asthma and now has resulted in hypoxia, coughing, chest congestion. Patient is placed in inpatient status due to tachypnea, tachycardia, and hypoxia (2) Asthma with COPD with exacerbation Conclusion/Plan: I would not go as far to say as this woman has emphysema. She appears to have an atopic syndrome with allergic rhinitis and asthma. Usually well controlled. The COVID infection has destabilized her. Plan: Decadron 6 mg IV push daily DuoNeb on a thick schedule IV times a day while awake O2 O2 by nasal cannula to maintain O2 sats above 88% Mucinex 600 mg p.o. twice daily Singular 10 mg p.o. daily (3) COVID-19 Conclusion/Plan: In addition to Decadron, I will start her on remdesivir 200 mg IV push today, followed by 100 mg IV push for total of 5 days of therapy She had a slight left lower lobe infiltrate on chest x-ray. She received azithromycin and Rocephin in the ER. Plan: Rocephin IV for 5 days Azithromycin 500 mg IV for 3 days DVT prophylaxis will be Lovenox 40 mg subcu. She is on estradiol that which would increase her risk for DVT but that estradiol is topical. (4) Chronic diastolic heart failure Conclusion/Plan: This was based on an echocardiogram from 2016. In reading the cardiology notes, the research development director was unimpressed. She did not really feel this patient was suffering from symptoms of this. The most she was offering was a beta-noelle, or an ARB. The patient declined that. As such the patient was given Lasix to be taken in as needed basis. Here, she will get 1 L of IV fluids. Encourage p.o. intake for water. (5) History of alcohol abuse Conclusion/Plan: She was seen in the ER for alcohol intoxication in 2017. Macrocytosis was evaluated and felt to be due to alcohol abuse. Elevated liver enzymes also felt to be to alcohol abuse. Both of those lab indices of liver and CBC are still present. Patient says that she does drink 2 glasses of wine a day but is never gone through alcohol withdrawal.Hyponatremia would also go with this. Plan: Thiamine 100 mg a day Folic acid Consider CIWA protocol if she gets hypertensive and tachycardic and/or tremulous with hallucinations (6) Weakness generalized Conclusion/Plan: Present even before she came to the hospital. Laying on the floor for the last day and a half because she had no strength to get up. Plan: PT and OT evaluation and treatment (7) Hypertension Conclusion/Plan: On metoprolol. I will resume her beta-noelle to avoid rebound tachycardia Qualifiers: Hypertension type: primary hypertension Qualified Code(s): I10 - Essential (primary) hypertension - Lab Results Lab results reviewed: Yes Fish Bones: 08/06/22 09:40 08/06/22 09:40 - Diagnostic Imaging Results Diagnostic Imaging Results: positive: Final report reviewed - EKG Results EKG Interpreted Independently: No Core Measures - Anticipated LOS I expect patient to be DC'd or transferred within 96 hours.: Yes - DVT/VTE - Prophylaxis VTE/DVT Prophylaxis med ordered at admit?: Yes
[2022-08-06] MEDS: SODIUM CHLORIDE FLUSH 0.9% 10 ML SYRINGE IVP SCH ×2 (19:52→23:59)
[2022-08-07 05:52] LABS: BASOPHILS % (AUTO) 0.1 %; HCT - HEMATOCRIT 39.2 % (37.0-47.0); HGB - HEMOGLOBIN 13.9 g/dL (12.0-16.0); LYMPHOCYTES % (AUTO) 3.6 %; MEAN CORPUSCULAR HEMOGLOBIN 37.5 pg (27.0-31.0); MEAN CORPUSCULAR HGB CONC 35.5 g/dL (32.0-36.0); MEAN CORPUSCULAR VOLUME 105.7 fL (81.0-99.0); MONOCYTES % (AUTO) 8.8 %; NEUTROPHILS % (AUTO) 87.3 %; PLT - PLATELET COUNT 164 10^3/uL (130-450); RED BLOOD COUNT 3.71 10^6/uL (4.20-5.40); RED CELL DISTRIBUTION WIDTH 11.2 % (12.0-15.0); WHITE BLOOD COUNT 8.3 x10^3/uL (4.8-10.8)
[2022-08-07 06:03] LABS: ABNORMAL LYMPHS % (MANUAL) 0 %
[2022-08-07 06:05] LABS: BILIRUBIN,TOTAL 0.6 mg/dL (0.2-1.0); CALCIUM 8.5 mg/dL (8.5-10.3); CREATININE 0.6 mg/dL (0.4-1.0); TOTAL PROTEIN 6.1 g/dL (6.7-8.2)
[2022-08-07 06:15] LABS: BAND NEUTROPHILS % (MANUAL) 12 %; DIFFERENTIAL COMMENT MANUAL DIFFERENTIAL; LYMPHOCYTES # (MANUAL) 0.5 10^3/uL (1.5-3.5); LYMPHOCYTES % (MANUAL) 6 %; METAMYELOCYTES % (MANUAL) 2 %; MONOCYTES # (MANUAL) 0.4 10^3/uL (0.0-1.0); NEUTROPHILS # (MANUAL) 7.2 10^3/uL (1.5-6.6); PLATELET ESTIMATE, MANUAL NORMAL (130-450,000) (NORMAL); PLATELET MORPHOLOGY NORMAL APPEARANCE (NORMAL); RBC MORPHOLOGY (MULTIPLE) NORMAL APPEARANCE (NORMAL); WBC MORPHOLOGY (MULTIPLE) NORMAL APPEARANCE (NORMAL)
[2022-08-07] MEDS: IPRATROPIUM/ALBUTEROL 3 ML NEB INH SCH ×4 (07:39→19:30)
[2022-08-07] MEDS: cefTRIAXone 1 GM in SODIUM CHLORIDE 0.9% MINIBAG 100 ML IV SCH (08:51)
[2022-08-07] MEDS: DEXAMETHASONE 4 MG/ML VIAL IVP SCH (08:52)
[2022-08-07] MEDS: ENOXAPARIN 40 MG/0.4 ML SYRINGE SUBQ SCH (08:52)
[2022-08-07] MEDS: SODIUM CHLORIDE FLUSH 0.9% 10 ML SYRINGE IVP SCH ×2 (08:53→16:37)
[2022-08-07] MEDS ORDERED: METOPROLOL SUCCINATE 25 MG TABLET PO SCH (09:00)
--- NOTE | 2022-08-07 09:14 | PROVIDER PROGRESS NOTE ---
Assessment/Plan - Problem List (1) Acute respiratory failure with hypoxia Assessment/Plan: Non-smoker, previous history of minimal asthma. She appears to have an acute infection that has decompensated a relatively stable asthmatic, and now has resulted in hypoxia, coughing, chest congestion. Patient was placed in inpatient status due to tachypnea, tachycardia, and hypoxia. Plan: Treat the underlying problem of COVID and CAP Continue with supplemental O2, target saturations 92% or above (2) COVID-19 She had a slight left lower lobe infiltrate on chest x-ray. She received az ithromycin and Rocephin in the ER. Plan: Decadron to cont Rocephin IV for 5 days Azithromycin 500 mg IV for 3 days DVT prophylaxis will be Lovenox 40 mg subcu. She is on estradiol that which would increase her risk for DVT but that estradiol is topical. (3) Diarrhea Conclusion/Plan: This could be her GI symptoms of COVID Plan: We will test her stool for C. difficile by PCR If negative will start Imodium and probiotics (4) Asthma with COPD with exacerbation Conclusion/Plan: She may have an atopic syndrome with allergic rhinitis and asthma. Usually well controlled. The COVID infection has destabilized her. Plan: Cont Decadron IV daily Cont DuoNeb on a thick schedule IV times a day while awake O2 by nasal cannula to maintain O2 sats above 92% Cont Mucinex 600 mg p.o. twice daily Cont Singular 10 mg p.o. daily (5) Chronic diastolic heart failure Conclusion/Plan: This was based on an Echocardiogram from 2016. In reading the cardiology notes, the cardiologis did not really feel this patient was suffering from symptoms of CHF. The most she was offering was a beta-noelle, or an ARB. The patient declined that. As such the patient was given Lasix to be taken in as needed basis. Plan: I will order an Echo to eval her LV functionj now, since it has been 7 years sin ce the last Echo Cont IV fluids given the weakness and encourage p.o. intake for now (6) History of alcohol abuse Conclusion/Plan: She was seen in the ER for alcohol intoxication in 2017. Macrocytosis was evaluated and felt to be due to alcohol abuse. Elevated liver enzymes also felt to be to alcohol abuse. Both of those lab indices of liver and CBC are still present. Patient says that she does drink 2 glasses of wine a day but has never gone through alcohol withdrawal. her Hyponatremia would also go with alcohol abuse (all labs were reviewed) Plan: Thiamine 100 mg a day Folic acid [facility] protocolto watch for HTN, tachycardia and/or tremulousness or hallucinations (7) Weakness generalized Conclusion/Plan: Present even before she came to the hospital. She was laying on the floor for the last day and a half because she had no strength to get up. Plan: PT and OT evaluation and treatment (8) Hx of Hypertension Conclusion/Plan: Here she is having "soft" BPs of 110-120/50-60 She was on Metoprolol 25 mg daily at home. Plan: The admitting provider resumed her beta-noelle to avoid rebound tachycardia. I will add parameters of when to hold the Metoprolol Qualifiers: Hypertension type: primary hypertension Qualified Code(s): I10 - Essential (primary) hypertension - Current Meds Current Meds: Current Medications Generic Name Dose Route Start Last Admin Trade Name Freq PRN Reason Stop Dose Admin Albuterol/Ipratropium 3 ml 08/06/22 15:00 08/07/22 07:39 Ipratropium/Albuterol 3 Ml Neb INH 3 ml RTQID ADIA Administration Dexamethasone 6 mg 08/07/22 09:00 08/07/22 08:52 Dexamethasone 4 Mg/Ml Vial IVP 6 mg DAILY ADIA Administration Enoxaparin Sodium 40 mg 08/06/22 13:00 08/07/22 08:52 Enoxaparin 40 Mg/0.4 Ml Syringe SUBQ 40 mg DAILY ADIA Administration Ceftriaxone Sodium 1 gm/ 100 mls @ 200 mls/hr 08/07/22 09:00 08/07/22 08:51 Sodium Chloride IV 200 mls/hr DAILY ADIA Administration Metoprolol Succinate 25 mg 08/07/22 09:00 08/07/22 08:53 Metoprolol Succinate 25 Mg Tablet PO 25 mg DAILY ADIA Administration Multi-Ingredient Ointment 1 applic 08/06/22 13:59 08/06/22 14:11 Zinc Oxide 20% Oint 30 Gm Tube TOP 1 applic PRN PRN Administration Skin Care Sodium Chloride 10 ml 08/06/22 17:00 08/07/22 08:53 Sodium Chloride Flush 0.9% 10 Ml Syringe IVP 10 ml 0100,0900,1700 ADIA Administration - Lab Result Fish Bone Diagrams: 08/07/22 09:50 08/07/22 09:50 Subjective - Subjective Patient Reports: Feeling Better, Resting Comfortably Objective Vital Signs: Vital Signs - 24 hr 08/06/22 08/06/22 08/06/22 09:26 09:44 09:45 Temperature 36.3 C L Heart Rate 106 H 104 H Heart Rate [ Monitoring electrodes] Respiratory 24 25 H 24 Rate Blood Pressure 152/84 H Blood Pressure [Left Brachial artery] O2 Saturation 95 88 L 92 If not protocol 4 : Oxygen Flow, liters/minute 08/06/22 08/06/22 08/06/22 10:35 11:31 12:02 Temperature Heart Rate 108 H 12 L 100 Heart Rate [ Monitoring electrodes] Respiratory 24 24 32 H Rate Blood Pressure 115/60 144/77 H Blood Pressure [Left Brachial artery] O2 Saturation 90 L 93 If not protocol 4 4 : Oxygen Flow, liters/minute 08/06/22 08/06/22 08/06/22 13:04 13:22 13:48 Temperature 37.1 C 37.5 C Heart Rate 106 H Heart Rate [ 95 Monitoring electrodes] Respiratory 24 25 H Rate Blood Pressure 96/60 Blood Pressure 116/60 [Left Brachial artery] O2 Saturation 94 95 If not protocol 3 3 3 : Oxygen Flow, liters/minute 08/06/22 08/06/22 08/06/22 14:45 14:54 15:00 Temperature Heart Rate Heart Rate [ Monitoring electrodes] Respiratory 28 H 29 H Rate Blood Pressure Blood Pressure [Left Brachial artery] O2 Saturation 88 L 88 L 90 L If not protocol 6 10 15 : Oxygen Flow, liters/minute 08/06/22 08/06/22 08/06/22 15:10 16:14 16:18 Temperature 36.9 C Heart Rate 95 Heart Rate [ 100 Monitoring electrodes] Respiratory 22 24 Rate Blood Pressure Blood Pressure 91/75 [Left Brachial artery] O2 Saturation 93 100 If not protocol 15 15 4 : Oxygen Flow, liters/minute 08/06/22 08/06/22 08/07/22 21:09 21:11 00:00 Temperature 36.4 C L Heart Rate 96 Heart Rate [ 81 Monitoring electrodes] Respiratory 20 16 Rate Blood Pressure Blood Pressure 114/55 L [Left Brachial artery] O2 Saturation 98 If not protocol 4 4 4 : Oxygen Flow, liters/minute 08/07/22 08/07/22 08/07/22 07:42 08:00 09:06 Temperature 37.2 C Heart Rate 87 Heart Rate [ 92 Monitoring electrodes] Respiratory 19 18 18 Rate Blood Pressure Blood Pressure 125/59 L [Left Brachial artery] O2 Saturation 100 96 If not protocol 4 9 5 : Oxygen Flow, liters/minute Oxygen O2 Source Nasal cannula Oxygen Flow Rate 4 I&O (Last 24 Hrs): Intake and Output Totals x24h 08/05/22 08/06/22 08/07/22 23:59 23:59 23:59 Intake Total 640 1500 Balance 640 1500 General: Alert (Remote exam on COVID pt) HEENT: Mucous membr. moist/pink Neck: Supple Neuro: Alert Cardiovascular: Regular rate Respiratory: No respiratory distress (on suppl O2) Abdomen: No tenderness Extremities: No clubbing, No edema - Results Results: Laboratory Results WBC 8.3 x10^3/uL (4.8-10.8) 08/07/22 04:35 RBC 3.71 10^6/uL (4.20-5.40) L 08/07/22 04:35 Hgb 13.9 g/dL (12.0-16.0) 08/07/22 04:35 Hct 39.2 % (37.0-47.0) 08/07/22 04:35 MCV 105.7 fL (81.0-99.0) H 08/07/22 04:35 MCH 37.5 pg (27.0-31.0) H 08/07/22 04:35 MCHC 35.5 g/dL (32.0-36.0) 08/07/22 04:35 RDW 11.2 % (12.0-15.0) L 08/07/22 04:35 Plt Count 164 10^3/uL (130-450) 08/07/22 04:35 MPV 10.0 fL (7.9-10.8) 08/07/22 04:35 Neut # (Auto) Not Reportable 08/07/22 04:35 Lymph # (Auto) Not Reportable 08/07/22 04:35 [place] # (Auto) Not Reportable 08/07/22 04:35 Eos # (Auto) Not Reportable 08/07/22 04:35 Baso # (Auto) Not Reportable 08/07/22 04:35 Absolute Nucleated RBC Not Reportable 08/07/22 04:35 Total Counted 100 08/07/22 04:35 Band Neuts % (Manual) 12 % (0-10) H 08/07/22 04:35 Abnorm Lymph % (Manual) 0 % 08/07/22 04:35 Metamyelocytes % 2 % (-0) H 08/07/22 04:35 Nucleated RBC % Not Reportable 08/07/22 04:35 Neutrophils # (Manual) 7.2 10^3/uL (1.5-6.6) H 08/07/22 04:35 Lymphocytes # (Manual) 0.5 10^3/uL (1.5-3.5) L 08/07/22 04:35 Monocytes # (Manual) 0.4 10^3/uL (0.0-1.0) 08/07/22 04:35 Eosinophils # (Manual) 0.0 10^3/uL (0-0.7) 08/07/22 04:35 Basophils # (Manual) 0.0 10^3/uL (0-0.1) 08/07/22 04:35 Differential Comment MANUAL DIFFERENTIAL 08/07/22 04:35 Manual Slide Review Indicated 08/06/22 09:40 WBC Morphology NORMAL APPEARANCE (NORMAL) 08/07/22 04:35 Platelet Estimate NORMAL (130-450,000) (NORMAL) 08/07/22 04:35 Platelet Morphology NORMAL APPEARANCE (NORMAL) 08/07/22 04:35 RBC Morph Micro Appear NORMAL APPEARANCE (NORMAL) 08/07/22 04:35 Sodium 133 mmol/L (135-145) L 08/07/22 04:35 Potassium 3.0 mmol/L (3.5-5.0) L 08/07/22 04:35 Chloride 97 mmol/L (101-111) L 08/07/22 04:35 Carbon Dioxide 24 mmol/L (21-32) 08/07/22 04:35 Anion Gap 12.0 (6-13) 08/07/22 04:35 BUN 7 mg/dL (6-20) 08/07/22 04:35 Creatinine 0.6 mg/dL (0.4-1.0) 08/07/22 04:35 Estimated GFR (MDRD) 96 (>89) 08/07/22 04:35 Glucose 210 mg/dL (70-100) H 08/07/22 04:35 Calcium 8.5 mg/dL (8.5-10.3) 08/07/22 04:35 Total Bilirubin 0.6 mg/dL (0.2-1.0) 08/07/22 04:35 AST 74 IU/L (10-42) H 08/07/22 04:35 ALT 58 IU/L (10-60) 08/07/22 04:35 Alkaline Phosphatase 38 IU/L (42-121) L 08/07/22 04:35 B-Natriuretic Peptide 244 pg/mL (5-100) H 08/06/22 09:40 Total Protein 6.1 g/dL (6.7-8.2) L 08/07/22 04:35 Albumin 3.0 g/dL (3.2-5.5) L 08/07/22 04:35 Globulin 3.1 g/dL (2.1-4.2) 08/07/22 04:35 Albumin/Globulin Ratio 1.0 (1.0-2.2) 08/07/22 04:35 Lipase 26 U/L (22-51) 08/06/22 09:40 Nasal Adenovirus (PCR) NOT DETECTED 08/06/22 09:50 Nasal B. parapertussis DNA (PCR) NOT DETECTED 08/06/22 09:50 Nasal Coronavir 229E PCR NOT DETECTED 08/06/22 09:50 Nasal Coronavir HKU1 PCR NOT DETECTED 08/06/22 09:50 Nasal Coronavir NL63 PCR NOT DETECTED 08/06/22 09:50 Nasal Coronavir OC43 PCR NOT DETECTED 08/06/22 09:50 Nasal Enterovir/Rhinovir PCR NOT DETECTED 08/06/22 09:50 Nasal Influenza B PCR NOT DETECTED 08/06/22 09:50 Nasal Influenza A PCR NOT DETECTED 08/06/22 09:50 Nasal Parainfluen 1 PCR NOT DETECTED 08/06/22 09:50 Nasal Parainfluen 2 PCR NOT DETECTED 08/06/22 09:50 Nasal Parainfluen 3 PCR NOT DETECTED 08/06/22 09:50 Nasal Parainfluen 4 PCR NOT DETECTED 08/06/22 09:50 Nasal RSV (PCR) NOT DETECTED 08/06/22 09:50 Nasal B.pertussis DNA PCR NOT DETECTED 08/06/22 09:50 Nasal C.pneumoniae (PCR) NOT DETECTED 08/06/22 09:50 Mauricio Human Metapneumo PCR NOT DETECTED 08/06/22 09:50 Nasal M.pneumoniae (PCR) NOT DETECTED 08/06/22 09:50 Nasal SARS-CoV-2 (PCR) DETECTED A 08/06/22 09:50 Ethyl Alcohol < 5.0 mg/dL 08/06/22 09:40
[2022-08-07 09:57] LABS: BASOPHILS % (AUTO) 0.2 %; HCT - HEMATOCRIT 41.5 % (37.0-47.0); HGB - HEMOGLOBIN 14.7 g/dL (12.0-16.0); LYMPHOCYTES # (AUTO) 0.4 10^3/uL (1.5-3.5); LYMPHOCYTES % (AUTO) 3.7 %; MEAN CORPUSCULAR HEMOGLOBIN 37.5 pg (27.0-31.0); MEAN CORPUSCULAR HGB CONC 35.4 g/dL (32.0-36.0); MEAN CORPUSCULAR VOLUME 105.9 fL (81.0-99.0); MEAN PLATELET VOLUME 9.8 fL (7.9-10.8); MONOCYTES # (AUTO) 0.9 10^3/uL (0.0-1.0); MONOCYTES % (AUTO) 8.8 %; NEUTROPHILS # (AUTO) 8.5 10^3/uL (1.5-6.6); NEUTROPHILS % (AUTO) 87.1 %; PLT - PLATELET COUNT 180 10^3/uL (130-450); RED BLOOD COUNT 3.92 10^6/uL (4.20-5.40); RED CELL DISTRIBUTION WIDTH 11.3 % (12.0-15.0); WHITE BLOOD COUNT 9.8 x10^3/uL (4.8-10.8)
[2022-08-07 10:13] LABS: ALBUMIN 3.1 g/dL (3.2-5.5); BILIRUBIN,TOTAL 0.8 mg/dL (0.2-1.0); CALCIUM 8.7 mg/dL (8.5-10.3); CREATININE 0.6 mg/dL (0.4-1.0); TOTAL PROTEIN 6.3 g/dL (6.7-8.2)
[2022-08-07] MEDS: AZITHROMYCIN INJ 500 MG in SODIUM CHLORIDE 0.9% 250 ML IV SCH (10:47)
[2022-08-07] MEDS: SODIUM CHLORIDE 0.9% 1,000 ML IV SCH (11:19)
[2022-08-07] MEDS: POTASSIUM CHLOR 10 MEQ/100 ML 10 MEQ/100 ML BAG IV SCH ×4 (11:19→14:55)
[2022-08-07] MEDS: REMDESIVIR 100 MG in SODIUM CHLORIDE 0.9% 100ML 100 ML IV SCH (12:34)
[2022-08-07 13:59] LABS: FOLATE 4.61 ng/mL (5.90 - >24.8)
[2022-08-07] MEDS: CHOLECALCIFEROL 25 MCG TABLET PO SCH (16:37)
[2022-08-07] MEDS: LORazepam 2 MG/ML VIAL IVP PRN (22:17)
[2022-08-08] MEDS: SODIUM CHLORIDE FLUSH 0.9% 10 ML SYRINGE IVP SCH ×3 (02:01→16:05)
[2022-08-08 05:17] LABS: BASOPHILS % (AUTO) 0.1 %; HCT - HEMATOCRIT 37.3 % (37.0-47.0); LYMPHOCYTES # (AUTO) 0.4 10^3/uL (1.5-3.5); LYMPHOCYTES % (AUTO) 4.7 %; MEAN CORPUSCULAR HEMOGLOBIN 37.5 pg (27.0-31.0); MEAN CORPUSCULAR HGB CONC 34.9 g/dL (32.0-36.0); MEAN CORPUSCULAR VOLUME 107.5 fL (81.0-99.0); MEAN PLATELET VOLUME 9.8 fL (7.9-10.8); MONOCYTES # (AUTO) 0.8 10^3/uL (0.0-1.0); MONOCYTES % (AUTO) 8.9 %; NEUTROPHILS # (AUTO) 7.8 10^3/uL (1.5-6.6); PLT - PLATELET COUNT 178 10^3/uL (130-450); RED BLOOD COUNT 3.47 10^6/uL (4.20-5.40); RED CELL DISTRIBUTION WIDTH 11.3 % (12.0-15.0); WHITE BLOOD COUNT 9.1 x10^3/uL (4.8-10.8)
[2022-08-08 05:31] LABS: ALBUMIN 2.9 g/dL (3.2-5.5); ALBUMIN/GLOBULIN RATIO 1.1 (1.0-2.2); BILIRUBIN,TOTAL 0.7 mg/dL (0.2-1.0); CALCIUM 8.4 mg/dL (8.5-10.3); CREATININE 0.4 mg/dL (0.4-1.0); POTASSIUM 3.3 mmol/L (3.5-5.0); TOTAL PROTEIN 5.5 g/dL (6.7-8.2)
[2022-08-08] MEDS: IPRATROPIUM/ALBUTEROL 3 ML NEB INH SCH ×4 (06:10→19:25)
[2022-08-08] MEDS: LORazepam 2 MG/ML VIAL IVP PRN (07:39)
[2022-08-08] MEDS: cefTRIAXone 1 GM in SODIUM CHLORIDE 0.9% MINIBAG 100 ML IV SCH (09:00)
[2022-08-08] MEDS: ENOXAPARIN 40 MG/0.4 ML SYRINGE SUBQ SCH (09:09)
[2022-08-08] MEDS: PRENATAL VITAMIN TABLET PO SCH (09:10)
[2022-08-08] MEDS: THIAMINE 100 MG TABLET PO SCH (09:11)
[2022-08-08] MEDS: DEXAMETHASONE 4 MG/ML VIAL IVP SCH (09:11)
[2022-08-08] MEDS: METOPROLOL SUCCINATE 25 MG TABLET PO SCH (09:11)
[2022-08-08] MEDS: CHOLECALCIFEROL 25 MCG TABLET PO SCH (09:11)
[2022-08-08] MEDS: AZITHROMYCIN INJ 500 MG in SODIUM CHLORIDE 0.9% 250 ML IV SCH (09:59)
[2022-08-08] MEDS ORDERED: CYANOCOBALAMIN 1,000 MCG/ML VIAL IM ONE (10:47)
[2022-08-08] MEDS ORDERED: FOLIC ACID INJ 1 MG in SODIUM CHLORIDE 0.9% 1,000 ML IV ONE (11:00)
[2022-08-08] MEDS ORDERED: FOLIC ACID 1 MG TABLET PO SCH (11:08)
--- NOTE | 2022-08-08 11:08 | PROVIDER PROGRESS NOTE ---
Assessment/Plan - Problem List (1) COVID-19 Assessment/Plan: She had a slight left lower lobe infiltrate on chest x-ray. She received azithromycin and Rocephin in the ER. Plan: Decadron IV to cont Remdesivir to continue, plan to stop this when she does not need suppl O2 at all Empiric Rocephin IV for 5 days planned Empiric Azithromycin 500 mg IV for 3 days planned DVT prophylaxis will be Lovenox 40 mg subcu. She is on estradiol that which would increase her risk for DVT and the COVID increases her thrombosis risk. (2) Diarrhea Conclusion/Plan: This could be her GI symptoms of COVID or due to being on antibx Her stool for C. difficile by PCR test came back neg Plan: Will start prn Imodium and scheduled probiotics BID (3) Asthma with COPD with exacerbation Conclusion/Plan: She may have an atopic syndrome with allergic rhinitis and asthma, which usually is well controlled, but this COVID infection has destabilized her. She still has mild wheezing on the left side on exam today Plan: Cont Decadron IV daily Cont DuoNeb on a thick schedule IV times a day while awake Give suppl O2 by nasal cannula prn, to maintain O2 sats above 92% Cont Mucinex 600 mg p.o. twice daily Cont Singular 10 mg p.o. daily (4) Alcohol abuse Conclusion/Plan: She was seen in the ER for alcohol intoxication in 2017. Macrocytosis was evaluated and felt to be due to alcohol abuse. Elevated liver enzymes were also felt to be to alcohol abuse. Both of those lab indices of liver and CBC are still present: her AST/ALT were 74/58 at admission and these are normal today. Her MCV is running 107. Patient reported at admission that she drinks 2 glasses of wine a day. Today I updated the at bedside regarding her condition and he reported that she drinks 2 to 4 glasses of wine per day. A CIWA protocol was ordered yesterday and she is scoring 7-8, and has needed iv Ativan. Folic acid level came back low and her B12 level came back low (all labs were reviewed). Plan: Cont Thiamine 100 mg a day Folic acid po daily to start I will give her B12 IM x1 then B12 p.o. daily Cont the CIWA protocol and prn Ativan treatment I told the patient and at bedside that 1 glass of wine per day is allowed and felt to be safe for women (5) Weakness generalized Conclusion/Plan: Present even before she came to the hospital. She was laying on the floor for a day and a half because she had no strength to get up. confirmed this is a spoke to him today Plan: PT and OT evaluation and treatment (6) Chronic diastolic heart failure Conclusion/Plan: This was based on an Echocardiogram from 2016. In reading the cardiology notes, the tire technician did not really feel this patient was suffering from symptoms of CHF. The most she was offering was a beta-noelle, or an ARB. The patient declined that. As such the patient was given Lasix to be taken in as needed basis. Plan: I will order an Echo to eval her LV functionj now, since it has been 7 years since the last Echo Start to decrease her IV fluids, which were ordered given her weakness. Will encourage p.o. hydration (7) Hx of Hypertension Conclusion/Plan: Here she is having "soft" BPs of 110-120/50-60 She was on Metoprolol 25 mg daily at home. Plan: The admitting provider resumed her beta-noelle to avoid rebound tachycardia. I added parameters of when to hold the Metoprolol Qualifiers: Hypertension type: primary hypertension Qualified Code(s): I10 - Essential (primary) hypertension (8) Acute respiratory failure with hypoxia Assessment/Plan: Hypoxia at rest has resolved. VS were reviewed and sats are 97% at rest on room air Plan: With activity, we will give her suppl O2 by nasal cannula prn, to maintain O2 sats above 92% - Current Meds Current Meds: Current Medications Generic Name Dose Route Start Last Admin Trade Name Freq PRN Reason Stop Dose Admin Albuterol/Ipratropium 3 ml 08/06/22 15:00 08/08/22 06:10 Ipratropium/Albuterol 3 Ml Neb INH 3 ml RTQID ADIA Administration Cholecalciferol 50 mcg 08/07/22 17:00 08/08/22 09:11 Cholecalciferol 25 Mcg Tablet PO 50 mcg DAILY ADIA Administration Dexamethasone 6 mg 08/07/22 09:00 08/08/22 09:11 Dexamethasone 4 Mg/Ml Vial IVP 6 mg DAILY ADIA Administration Enoxaparin Sodium 40 mg 08/06/22 13:00 08/08/22 09:09 Enoxaparin 40 Mg/0.4 Ml Syringe SUBQ 40 mg DAILY ADIA Administration Remdesivir 100 mg/ Sodium 100 mls @ 200 mls/hr 08/07/22 09:00 08/07/22 13:08 Chloride IV 08/10/22 09:29 Infused DAILY ADIA Infusion Ceftriaxone Sodium 1 gm/ 100 mls @ 200 mls/hr 08/07/22 09:00 08/08/22 09:30 Sodium Chloride IV Infused DAILY ADIA Infusion Sodium Chloride 1,000 mls @ 40 mls/hr 08/07/22 10:00 08/07/22 22:50 Normal Saline 0.9% IV 40 mls/hr .Q25H ADIA Infusion Lorazepam 1 mg 08/07/22 09:14 08/08/22 07:39 Lorazepam 2 Mg/Ml Vial IVP 1 mg Q30M PRN Administration CIWA >8 Protocol Metoprolol Succinate 25 mg 08/07/22 09:23 08/08/22 09:11 Metoprolol Succinate 25 Mg Tablet PO 25 mg DAILY ADIA Administration Multi-Ingredient Ointment 1 applic 08/06/22 13:59 08/06/22 14:11 Zinc Oxide 20% Oint 30 Gm Tube TOP 1 applic PRN PRN Administration Skin Care Multivit/Folic Acid/Iron 1 tab 08/08/22 09:00 08/08/22 09:10 Vitamin Tablet PO 1 tab DAILY ADIA Administration Sodium Chloride 10 ml 08/06/22 12:06 08/07/22 22:17 Sodium Chloride Flush 0.9% 10 Ml Syringe IVP 10 ml PRN PRN Administration NEEDED PER PROVIDER ORDERS Sodium Chloride 10 ml 08/06/22 17:00 08/08/22 09:12 Sodium Chloride Flush 0.9% 10 Ml Syringe IVP 10 ml 0100,0900,1700 ADIA Administration Thiamine HCl 100 mg 08/08/22 09:00 08/08/22 09:11 Thiamine 100 Mg Tablet PO 100 mg DAILY ADIA Administration - Lab Result Fish Bone Diagrams: 08/08/22 04:39 08/08/22 04:39 - Additional Planning My Orders: My Active Orders 08/07/22 17:00 Cholecalciferol [Vitamin D3] 50 mcg PO DAILY 08/08/22 09:00 Vitamin [Trinatal Rx 1] 1 tab PO DAILY Thiamine [Vitamin B-1] 100 mg PO DAILY 08/08/22 10:45 Folic Acid Inj [Folic Acid] 1 mg Sodium Chloride 0.9% [Normal Saline 0.9%] 1,000 ml IV ONCE 08/08/22 17:00 Saccharomyces Boulardii [Florastor] 250 mg PO BIDWM 08/09/22 09:00 Cyanocobalamin [Vitamin B-12] 500 mcg PO DAILY Folic Acid 1 mg PO DAILY Objective Vital Signs: Vital Signs - 24 hr 08/07/22 08/07/22 08/07/22 11:05 14:58 15:52 Temperature Heart Rate 90 78 Heart Rate [ Monitoring electrodes] Heart Rate [ 91 Sitting] Heart Rate [ 93 Supine] Respiratory 20 18 Rate Blood Pressure [Left Brachial artery] Blood Pressure [Right] Blood Pressure 130/80 [Sitting] Blood Pressure 118/65 [Supine] O2 Saturation O2 Saturation [ 97 Sitting] O2 Saturation [ 97 Supine] If not protocol 2 4 : Oxygen Flow, liters/minute 08/07/22 08/07/22 08/07/22 15:55 19:30 22:39 Temperature 36.8 C Heart Rate 79 Heart Rate [ 93 Monitoring electrodes] Heart Rate [ Sitting] Heart Rate [ Supine] Respiratory 18 18 Rate Blood Pressure [Left Brachial artery] Blood Pressure 118/65 [Right] Blood Pressure [Sitting] Blood Pressure [Supine] O2 Saturation 97 96 O2 Saturation [ Sitting] O2 Saturation [ Supine] If not protocol 2 2 1 : Oxygen Flow, liters/minute 08/08/22 08/08/22 08/08/22 01:46 06:10 07:37 Temperature 36.8 C 37.2 C Heart Rate 75 Heart Rate [ 68 79 Monitoring electrodes] Heart Rate [ Sitting] Heart Rate [ Supine] Respiratory 18 18 18 Rate Blood Pressure 129/69 138/67 H [Left Brachial artery] Blood Pressure [Right] Blood Pressure [Sitting] Blood Pressure [Supine] O2 Saturation 95 97 O2 Saturation [ Sitting] O2 Saturation [ Supine] If not protocol : Oxygen Flow, liters/minute Oxygen O2 Source Room air Oxygen Flow Rate 4 I&O (Last 24 Hrs): Intake and Output Totals x24h 08/06/22 08/07/22 08/08/22 23:59 23:59 23:59 Intake Total 640 3550.667 250 Output Total 150 400 Balance 640 3400.667 -150 - Results Results: Laboratory Results WBC 9.1 x10^3/uL (4.8-10.8) 08/08/22 04:39 RBC 3.47 10^6/uL (4.20-5.40) L 08/08/22 04:39 Hgb 13.0 g/dL (12.0-16.0) 08/08/22 04:39 Hct 37.3 % (37.0-47.0) 08/08/22 04:39 MCV 107.5 fL (81.0-99.0) H 08/08/22 04:39 MCH 37.5 pg (27.0-31.0) H 08/08/22 04:39 MCHC 34.9 g/dL (32.0-36.0) 08/08/22 04:39 RDW 11.3 % (12.0-15.0) L 08/08/22 04:39 Plt Count 178 10^3/uL (130-450) 08/08/22 04:39 MPV 9.8 fL (7.9-10.8) 08/08/22 04:39 Neut # (Auto) 7.8 10^3/uL (1.5-6.6) H 08/08/22 04:39 Lymph # (Auto) 0.4 10^3/uL (1.5-3.5) L 08/08/22 04:39 Freeborn # (Auto) 0.8 10^3/uL (0.0-1.0) 08/08/22 04:39 Eos # (Auto) 0.0 10^3/uL (0.0-0.7) 08/08/22 04:39 Baso # (Auto) 0.0 10^3/uL (0.0-0.1) 08/08/22 04:39 Absolute Nucleated RBC 0.00 x10^3/uL 08/08/22 04:39 Total Counted 100 08/07/22 04:35 Band Neuts % (Manual) 12 % (0-10) H 08/07/22 04:35 Abnorm Lymph % (Manual) 0 % 08/07/22 04:35 Metamyelocytes % 2 % (-0) H 08/07/22 04:35 Nucleated RBC % 0.0 /100WBC 08/08/22 04:39 Neutrophils # (Manual) 7.2 10^3/uL (1.5-6.6) H 08/07/22 04:35 Lymphocytes # (Manual) 0.5 10^3/uL (1.5-3.5) L 08/07/22 04:35 Monocytes # (Manual) 0.4 10^3/uL (0.0-1.0) 08/07/22 04:35 Eosinophils # (Manual) 0.0 10^3/uL (0-0.7) 08/07/22 04:35 Basophils # (Manual) 0.0 10^3/uL (0-0.1) 08/07/22 04:35 Differential Comment MANUAL DIFFERENTIAL 08/07/22 04:35 Manual Slide Review Indicated 08/06/22 09:40 WBC Morphology NORMAL APPEARANCE (NORMAL) 08/07/22 04:35 Platelet Estimate NORMAL (130-450,000) (NORMAL) 08/07/22 04:35 Platelet Morphology NORMAL APPEARANCE (NORMAL) 08/07/22 04:35 RBC Morph Micro Appear NORMAL APPEARANCE (NORMAL) 08/07/22 04:35 Sodium 136 mmol/L (135-145) 08/08/22 04:39 Potassium 3.3 mmol/L (3.5-5.0) L 08/08/22 04:39 Chloride 101 mmol/L (101-111) 08/08/22 04:39 Carbon Dioxide 27 mmol/L (21-32) 08/08/22 04:39 Anion Gap 8.0 (6-13) 08/08/22 04:39 BUN 11 mg/dL (6-20) 08/08/22 04:39 Creatinine 0.4 mg/dL (0.4-1.0) 08/08/22 04:39 Estimated GFR (MDRD) 154 (>89) 08/08/22 04:39 Glucose 156 mg/dL (70-100) H 08/08/22 04:39 Calcium 8.4 mg/dL (8.5-10.3) L 08/08/22 04:39 Total Bilirubin 0.7 mg/dL (0.2-1.0) 08/08/22 04:39 AST 39 IU/L (10-42) 08/08/22 04:39 ALT 43 IU/L (10-60) 08/08/22 04:39 Alkaline Phosphatase 29 IU/L (42-121) L 08/08/22 04:39 Total Creatine Kinase 183 IU/L (22-269) 08/07/22 09:15 B-Natriuretic Peptide 244 pg/mL (5-100) H 08/06/22 09:40 Total Protein 5.5 g/dL (6.7-8.2) L 08/08/22 04:39 Albumin 2.9 g/dL (3.2-5.5) L 08/08/22 04:39 Globulin 2.6 g/dL (2.1-4.2) 08/08/22 04:39 Albumin/Globulin Ratio 1.1 (1.0-2.2) 08/08/22 04:39 Lipase 26 U/L (22-51) 08/06/22 09:40 Vitamin B12 143 pg/mL (180-914) L 08/07/22 04:35 Folate 4.61 ng/mL (5.90 - >24.8) L 08/07/22 04:35 Nasal Adenovirus (PCR) NOT DETECTED 08/06/22 09:50 Nasal B. parapertussis DNA (PCR) NOT DETECTED 08/06/22 09:50 Nasal Coronavir 229E PCR NOT DETECTED 08/06/22 09:50 Nasal Coronavir HKU1 PCR NOT DETECTED 08/06/22 09:50 Nasal Coronavir NL63 PCR NOT DETECTED 08/06/22 09:50 Nasal Coronavir OC43 PCR NOT DETECTED 08/06/22 09:50 Nasal Enterovir/Rhinovir PCR NOT DETECTED 08/06/22 09:50 Nasal Influenza B PCR NOT DETECTED 08/06/22 09:50 Nasal Influenza A PCR NOT DETECTED 08/06/22 09:50 Nasal Parainfluen 1 PCR NOT DETECTED 08/06/22 09:50 Nasal Parainfluen 2 PCR NOT DETECTED 08/06/22 09:50 Nasal Parainfluen 3 PCR NOT DETECTED 08/06/22 09:50 Nasal Parainfluen 4 PCR NOT DETECTED 08/06/22 09:50 Nasal RSV (PCR) NOT DETECTED 08/06/22 09:50 Nasal B.pertussis DNA PCR NOT DETECTED 08/06/22 09:50 Nasal C.pneumoniae (PCR) NOT DETECTED 08/06/22 09:50 Mauricio Human Metapneumo PCR NOT DETECTED 08/06/22 09:50 Nasal M.pneumoniae (PCR) NOT DETECTED 08/06/22 09:50 Nasal SARS-CoV-2 (PCR) DETECTED A 08/06/22 09:50 Stl C. diff Tox B Gene NEGATIVE (NEGATIVE) 08/07/22 17:45 Ethyl Alcohol < 5.0 mg/dL 08/06/22 09:40
[2022-08-08] MEDS: REMDESIVIR 100 MG in SODIUM CHLORIDE 0.9% 100ML 100 ML IV SCH (11:15)
--- NOTE | 2022-08-08 15:59 | CT Report ---
PROCEDURE: HEAD WO INDICATIONS: Confusion, found on floor, history alcohol abuse TECHNIQUE: Noncontrast 4.5 mm thick angled axial sections acquired from the foramen magnum to the vertex. For r adiation dose reduction, the following was used: automated exposure control, adjustment of mA and/or kV according to patient size. COMPARISON: None. FINDINGS: Image quality: Excellent. CSF spaces: Basal cisterns are patent. No extra-axial fluid collections. The ventricles are symmet zhang in size and shape. Brain: No intracranial bleeds or masses. There is cerebral volume loss for age, with resultant vent ricular and sulcal prominence. There are periventricular and deep white matter chronic small vessel ischemic changes. There is intracranial internal carotid artery atherosclerosis. Skull and face: Calvarium and visualized facial bones appear intact, without suspicious lesions. Sinuses: Mild mucosal thickening in bilateral maxillary sinuses, ethmoid sinuses and sphenoid sinuses are seen. Bilateral mastoid air cells are well aerated. IMPRESSION: 1. No CT evidence of acute intracranial abnormalities. 2. Age-related volume loss and extensive white matter chronic small vessel ischemic changes. 3. Mild bilateral paranasal sinusitis. Reviewed by: Yan Agrawal MD on 08/08/2022 3:57 PM PDT Approved by: Yan Agrawal MD on 08/08/2022 3:57 PM PDT Station ID: [id number]
[2022-08-08] MEDS: SODIUM CHLORIDE 0.9% 1,000 ML IV SCH (16:04)
[2022-08-08] MEDS: SACCHAROMYCES BOULARDII 250 MG CAPSULE PO SCH (16:05)
[2022-08-09] MEDS: SODIUM CHLORIDE FLUSH 0.9% 10 ML SYRINGE IVP SCH ×3 (04:47→17:55)
[2022-08-09 05:01] LABS: BASOPHILS % (AUTO) 0.1 %; HCT - HEMATOCRIT 36.9 % (37.0-47.0); HGB - HEMOGLOBIN 13.1 g/dL (12.0-16.0); LYMPHOCYTES # (AUTO) 0.4 10^3/uL (1.5-3.5); LYMPHOCYTES % (AUTO) 4.8 %; MEAN CORPUSCULAR HEMOGLOBIN 37.5 pg (27.0-31.0); MEAN CORPUSCULAR HGB CONC 35.5 g/dL (32.0-36.0); MEAN CORPUSCULAR VOLUME 105.7 fL (81.0-99.0); MEAN PLATELET VOLUME 9.8 fL (7.9-10.8); MONOCYTES # (AUTO) 0.6 10^3/uL (0.0-1.0); MONOCYTES % (AUTO) 7.8 %; NEUTROPHILS % (AUTO) 86.9 %; PLT - PLATELET COUNT 190 10^3/uL (130-450); RED BLOOD COUNT 3.49 10^6/uL (4.20-5.40); RED CELL DISTRIBUTION WIDTH 11.3 % (12.0-15.0); WHITE BLOOD COUNT 8.1 x10^3/uL (4.8-10.8)
[2022-08-09 05:28] LABS: ALBUMIN 2.9 g/dL (3.2-5.5); ALBUMIN/GLOBULIN RATIO 1.1 (1.0-2.2); BILIRUBIN,TOTAL 0.7 mg/dL (0.2-1.0); CALCIUM 8.2 mg/dL (8.5-10.3); CREATININE 0.4 mg/dL (0.4-1.0); MAGNESIUM 2.1 mg/dL (1.7-2.8); POTASSIUM 2.8 mmol/L (3.5-5.0); TOTAL PROTEIN 5.5 g/dL (6.7-8.2)
[2022-08-09] MEDS: IPRATROPIUM/ALBUTEROL 3 ML NEB INH SCH ×4 (07:54→20:30)
[2022-08-09] MEDS ORDERED: FOLIC ACID 1 MG TABLET PO SCH (09:00)
[2022-08-09] MEDS: ENOXAPARIN 40 MG/0.4 ML SYRINGE SUBQ SCH (09:43)
[2022-08-09] MEDS: SACCHAROMYCES BOULARDII 250 MG CAPSULE PO SCH ×2 (09:44→17:55)
[2022-08-09] MEDS: METOPROLOL SUCCINATE 25 MG TABLET PO SCH (09:44)
[2022-08-09] MEDS: CHOLECALCIFEROL 25 MCG TABLET PO SCH (09:44)
[2022-08-09] MEDS: THIAMINE 100 MG TABLET PO SCH (09:44)
[2022-08-09] MEDS: PRENATAL VITAMIN TABLET PO SCH (09:44)
[2022-08-09] MEDS: DEXAMETHASONE 4 MG/ML VIAL IVP SCH (09:44)
[2022-08-09] MEDS: CYANOCOBALAMIN 500 MCG TABLET PO SCH (09:45)
[2022-08-09] MEDS: cefTRIAXone 1 GM in SODIUM CHLORIDE 0.9% MINIBAG 100 ML IV SCH (09:45)
--- NOTE | 2022-08-09 10:24 | PROVIDER PROGRESS NOTE ---
Assessment/Plan - Problem List (1) COVID-19 Assessment/Plan: She had a slight left lower lobe infiltrate on chest x-ray. She received azithromycin and Rocephin in the ER. Empiric Azithromycin 500 mg IV for 3 days planned and is completed now Today she had good O2 saturations even when walking with PT, on room air Plan: Decadron IV to cont Remdesivir will be stopped since she does not need suppl O2 at rest or with activity Empiric Rocephin IV for 5 days planned DVT prophylaxis will be Lovenox 40 mg subcu. COVID increases her thrombosis risk. (2) Diarrhea Conclusion/Plan: This could be her GI symptoms of COVID or due to being on antibx Her stool for C. difficile by PCR test came back neg Plan: Cont prn Imodium and scheduled probiotics BID (3) Hypokalemia This could be from her diarrhea or from poor p.o. intake Plan: I will give her K riders Follow BMP daily (4) Asthma with COPD with exacerbation Conclusion/Plan: She likely has atopic syndrome with allergic rhinitis and asthma, which usually is well controlled, but this COVID infection destabilized her. She still has mild wheezing on the left side on exam Plan: Cont Decadron IV daily Cont DuoNeb on a schedule QID while awake Cont Mucinex 600 mg p.o. twice daily Cont Singular 10 mg p.o. daily (5) Alcohol abuse Conclusion/Plan: She was seen in the ER for alcohol intoxication in 2017. Macrocytosis was evaluated and felt to be due to alcohol abuse. Elevated liver enzymes were also felt to be to alcohol abuse. Both of those lab indices of liver and CBC are still present: her AST/ALT were 74/58 at admission and these are normal today. Her MCV is running 107. Patient reported at admission that she drinks 2 glasses of wine a day. When I updated the at bedside regarding her condition on 08/08, he reported that she drinks 2 to 4 glasses of wine per day. Has been trying to get her to decrease and she will not. I told the patient and on at bedside on 08/08 that 1 glass of wine per day is allowed and felt to be safe for women A CIWA protocol was ordered 08/07 and she was scoring 7-8, and has needed iv Ativan. Folic acid level came back low and her B12 level came back low (all labs were reviewed). PT and OT started working with her. She has a shuffling gait and poor balance. A CT scan was ordered and done last night and this showed brain atrophy, no acute changes. I informed the of this result today, I suspect it could be from longstanding alcohol abuse Plan: Cont Thiamine 100 mg a day Cont Folic acid po daily She got B12 IM x1 then B12 p.o. daily ordered Cont the CIWA protocol and prn Ativan treatment The patient will need PT and OT at a SNF. The agrees to this. He will be choiced (6) Folic acid deficiency As per Labs Plan: Replacement ordered (7) Weakness generalized Conclusion/Plan: Present even before she came to the hospital. She was laying on the floor for a day and a half because she had no strength to get up. PT and OT reported a shuffling gait and marked confusion. Therefore a head CT was done, because it was not done at admission. This showed brain atrophy but no acute findings. I updated the about her weakness, the CT head resukt, and her overall condition today. I suspect she may have significant brain atrophy from longstanding alcohol abuse Plan: PT and OT treatment to continue and plan will be to go to SNF for rehab. The is in agreement. He will be choiced. (8) Chronic diastolic heart failure Conclusion/Plan: This was based on an Echocardiogram from 2016. In reading the cardiology notes, the music copyist did not really feel this patient was suffering from symptoms of CHF. The pt was prescribed a beta-noelle, and ARB. The patient was given Lasix to be taken on as needed basis. Plan: Cont to decrease then stop her IV fluids, which were ordered because of her weakness. Will encourage p.o. hydration (9) [place] Conclusion/Plan: Part of her confusion could be from poor hearing. Plan: She needs her hearing aids. was asked to bring those in. (10) Hx of Hypertension Conclusion/Plan: Here she is having "soft" BPs of 110-120/50-60 She was on Metoprolol 25 mg daily at home. Plan: The admitting provider resumed her beta-noelle to avoid rebound tachycardia. I added parameters of when to hold the Metoprolol Qualifiers: Hypertension type: primary hypertension Qualified Code(s): I10 - Essential (primary) hypertension (11) Acute respiratory failure with hypoxia Assessment/Plan: Hypoxia has resolved. VS were reviewed and sats are 97% at rest on room air. And with activity, her O2 sat is 95% on room air today - Current Meds Current Meds: Current Medications Generic Name Dose Route Start Last Admin Trade Name Freq PRN Reason Stop Dose Admin Albuterol/Ipratropium 3 ml 08/06/22 15:00 08/09/22 07:54 Ipratropium/Albuterol 3 Ml Neb INH 3 ml RTQID ADIA Administration Cholecalciferol 50 mcg 08/07/22 17:00 08/09/22 09:44 Cholecalciferol 25 Mcg Tablet PO 50 mcg DAILY ADIA Administration Cyanocobalamin 500 mcg 08/09/22 09:00 08/09/22 09:45 Cyanocobalamin 500 Mcg Tablet PO 500 mcg DAILY ADIA Administration Dexamethasone 6 mg 08/07/22 09:00 08/09/22 09:44 Dexamethasone 4 Mg/Ml Vial IVP 6 mg DAILY ADIA Administration Enoxaparin Sodium 40 mg 08/06/22 13:00 08/09/22 09:43 Enoxaparin 40 Mg/0.4 Ml Syringe SUBQ 40 mg DAILY ADIA Administration Remdesivir 100 mg/ Sodium 100 mls @ 200 mls/hr 08/07/22 09:00 08/08/22 11:45 Chloride IV 08/10/22 09:29 Infused DAILY ADIA Infusion Ceftriaxone Sodium 1 gm/ 100 mls @ 200 mls/hr 08/07/22 09:00 08/09/22 09:45 Sodium Chloride IV 200 mls/hr DAILY ADIA Administration Sodium Chloride 1,000 mls @ 40 mls/hr 08/07/22 10:00 08/08/22 16:04 Normal Saline 0.9% IV 40 mls/hr .Q25H ADIA Administration Lorazepam 1 mg 08/07/22 09:14 08/08/22 07:39 Lorazepam 2 Mg/Ml Vial IVP 1 mg Q30M PRN Administration CIWA >8 Protocol Metoprolol Succinate 25 mg 08/07/22 09:23 08/09/22 09:44 Metoprolol Succinate 25 Mg Tablet PO 25 mg DAILY ADIA Administration Multi-Ingredient Ointment 1 applic 08/06/22 13:59 08/06/22 14:11 Zinc Oxide 20% Oint 30 Gm Tube TOP 1 applic PRN PRN Administration Skin Care Multivit/Folic Acid/Iron 1 tab 08/08/22 09:00 08/09/22 09:44 Vitamin Tablet PO 1 tab DAILY ADIA Administration Saccharomyces Boulardii 250 mg 08/08/22 17:00 08/09/22 09:44 Saccharomyces Boulardii 250 Mg Capsule PO 250 mg BIDWM ADIA Administration Sodium Chloride 10 ml 08/06/22 12:06 08/07/22 22:17 Sodium Chloride Flush 0.9% 10 Ml Syringe IVP 10 ml PRN PRN Administration NEEDED PER PROVIDER ORDERS Sodium Chloride 10 ml 08/06/22 17:00 08/09/22 09:45 Sodium Chloride Flush 0.9% 10 Ml Syringe IVP 10 ml 0100,0900,1700 ADIA Administration Thiamine HCl 100 mg 08/08/22 09:00 08/09/22 09:44 Thiamine 100 Mg Tablet PO 100 mg DAILY ADIA Administration - Lab Result Fish Bone Diagrams: 08/10/22 05:24 08/10/22 05:24 - Additional Planning My Orders: My Active Orders 08/08/22 17:00 Saccharomyces Boulardii [Florastor] 250 mg PO BIDWM 08/09/22 09:00 Cyanocobalamin [Vitamin B-12] 500 mcg PO DAILY 08/09/22 11:00 Potassium Phosphate/NS 15 mmol/250 mL q4h Potassium Phosphate 15 mmol Sodium Chloride 0.9% [Normal Saline 0.9%] 250 ml IV Q4H Subjective - Subjective Patient Reports: Other (She is minimally communicative, naps most of the day. She has no complaints.) Objective Vital Signs: Vital Signs - 24 hr 08/08/22 08/08/22 08/08/22 11:36 13:55 15:19 Temperature Heart Rate 79 79 Heart Rate [ Monitoring electrodes] Heart Rate [ 96 Sitting] Heart Rate [ 94 Supine] Respiratory 16 18 Rate Blood Pressure [Left Brachial artery] Blood Pressure 114/60 [Sitting] Blood Pressure 112/55 L [Supine] O2 Saturation O2 Saturation [ 94 With Activity] 08/08/22 08/08/22 08/09/22 16:00 19:25 00:00 Temperature 37.6 C 36.9 C Heart Rate 94 Heart Rate [ 91 57 L Monitoring electrodes] Heart Rate [ Sitting] Heart Rate [ Supine] Respiratory 16 16 16 Rate Blood Pressure 120/57 L 130/68 [Left Brachial artery] Blood Pressure [Sitting] Blood Pressure [Supine] O2 Saturation 92 92 O2 Saturation [ With Activity] 08/09/22 07:56 Temperature Heart Rate 923 H Heart Rate [ Monitoring electrodes] Heart Rate [ Sitting] Heart Rate [ Supine] Respiratory 20 Rate Blood Pressure [Left Brachial artery] Blood Pressure [Sitting] Blood Pressure [Supine] O2 Saturation O2 Saturation [ With Activity] Oxygen O2 Source [With Activity] Room air O2 Source Room air Oxygen Flow Rate 4 I&O (Last 24 Hrs): Intake and Output Totals x24h 08/07/22 08/08/22 08/09/22 23:59 23:59 23:59 Intake Total 3550.667 1919.333 Output Total 150 400 Balance 3400.667 1519.333 General: Alert, No acute distress HEENT: Mucous membr. moist/pink Neck: Supple Neuro: Alert, Disoriented, Non Focal, Other ([place]) Cardiovascular: Regular rate, No murmurs Respiratory: No respiratory distress Abdomen: Soft Extremities: No clubbing, No edema - Results Results: Laboratory Results WBC 8.1 x10^3/uL (4.8-10.8) 08/09/22 04:38 RBC 3.49 10^6/uL (4.20-5.40) L 08/09/22 04:38 Hgb 13.1 g/dL (12.0-16.0) 08/09/22 04:38 Hct 36.9 % (37.0-47.0) L 08/09/22 04:38 MCV 105.7 fL (81.0-99.0) H 08/09/22 04:38 MCH 37.5 pg (27.0-31.0) H 08/09/22 04:38 MCHC 35.5 g/dL (32.0-36.0) 08/09/22 04:38 RDW 11.3 % (12.0-15.0) L 08/09/22 04:38 Plt Count 190 10^3/uL (130-450) 08/09/22 04:38 MPV 9.8 fL (7.9-10.8) 08/09/22 04:38 Neut # (Auto) 7.0 10^3/uL (1.5-6.6) H 08/09/22 04:38 Lymph # (Auto) 0.4 10^3/uL (1.5-3.5) L 08/09/22 04:38 [place] # (Auto) 0.6 10^3/uL (0.0-1.0) 08/09/22 04:38 Eos # (Auto) 0.0 10^3/uL (0.0-0.7) 08/09/22 04:38 Baso # (Auto) 0.0 10^3/uL (0.0-0.1) 08/09/22 04:38 Absolute Nucleated RBC 0.00 x10^3/uL 08/09/22 04:38 Total Counted 100 08/07/22 04:35 Band Neuts % (Manual) 12 % (0-10) H 08/07/22 04:35 Abnorm Lymph % (Manual) 0 % 08/07/22 04:35 Metamyelocytes % 2 % (-0) H 08/07/22 04:35 Nucleated RBC % 0.0 /100WBC 08/09/22 04:38 Neutrophils # (Manual) 7.2 10^3/uL (1.5-6.6) H 08/07/22 04:35 Lymphocytes # (Manual) 0.5 10^3/uL (1.5-3.5) L 08/07/22 04:35 Monocytes # (Manual) 0.4 10^3/uL (0.0-1.0) 08/07/22 04:35 Eosinophils # (Manual) 0.0 10^3/uL (0-0.7) 08/07/22 04:35 Basophils # (Manual) 0.0 10^3/uL (0-0.1) 08/07/22 04:35 Differential Comment MANUAL DIFFERENTIAL 08/07/22 04:35 Manual Slide Review Indicated 08/06/22 09:40 WBC Morphology NORMAL APPEARANCE (NORMAL) 08/07/22 04:35 Platelet Estimate NORMAL (130-450,000) (NORMAL) 08/07/22 04:35 Platelet Morphology NORMAL APPEARANCE (NORMAL) 08/07/22 04:35 RBC Morph Micro Appear NORMAL APPEARANCE (NORMAL) 08/07/22 04:35 Sodium 136 mmol/L (135-145) 08/09/22 04:38 Potassium 2.8 mmol/L (3.5-5.0) L 08/09/22 04:38 Chloride 100 mmol/L (101-111) L 08/09/22 04:38 Carbon Dioxide 29 mmol/L (21-32) 08/09/22 04:38 Anion Gap 7.0 (6-13) 08/09/22 04:38 BUN 10 mg/dL (6-20) 08/09/22 04:38 Creatinine 0.4 mg/dL (0.4-1.0) 08/09/22 04:38 Estimated GFR (MDRD) 154 (>89) 08/09/22 04:38 Glucose 155 mg/dL (70-100) H 08/09/22 04:38 Calcium 8.2 mg/dL (8.5-10.3) L 08/09/22 04:38 Phosphorus 2.0 mg/dL (2.5-4.6) L 08/09/22 04:38 Magnesium 2.1 mg/dL (1.7-2.8) 08/09/22 04:38 Total Bilirubin 0.7 mg/dL (0.2-1.0) 08/09/22 04:38 AST 32 IU/L (10-42) 08/09/22 04:38 ALT 39 IU/L (10-60) 08/09/22 04:38 Alkaline Phosphatase 36 IU/L (42-121) L 08/09/22 04:38 Total Creatine Kinase 183 IU/L (22-269) 08/07/22 09:15 B-Natriuretic Peptide 244 pg/mL (5-100) H 08/06/22 09:40 Total Protein 5.5 g/dL (6.7-8.2) L 08/09/22 04:38 Albumin 2.9 g/dL (3.2-5.5) L 08/09/22 04:38 Globulin 2.6 g/dL (2.1-4.2) 08/09/22 04:38 Albumin/Globulin Ratio 1.1 (1.0-2.2) 08/09/22 04:38 Lipase 26 U/L (22-51) 08/06/22 09:40 Vitamin B12 143 pg/mL (180-914) L 08/07/22 04:35 Folate 4.61 ng/mL (5.90 - >24.8) L 08/07/22 04:35 Nasal Adenovirus (PCR) NOT DETECTED 08/06/22 09:50 Nasal B. parapertussis DNA (PCR) NOT DETECTED 08/06/22 09:50 Nasal Coronavir 229E PCR NOT DETECTED 08/06/22 09:50 Nasal Coronavir HKU1 PCR NOT DETECTED 08/06/22 09:50 Nasal Coronavir NL63 PCR NOT DETECTED 08/06/22 09:50 Nasal Coronavir OC43 PCR NOT DETECTED 08/06/22 09:50 Nasal Enterovir/Rhinovir PCR NOT DETECTED 08/06/22 09:50 Nasal Influenza B PCR NOT DETECTED 08/06/22 09:50 Nasal Influenza A PCR NOT DETECTED 08/06/22 09:50 Nasal Parainfluen 1 PCR NOT DETECTED 08/06/22 09:50 Nasal Parainfluen 2 PCR NOT DETECTED 08/06/22 09:50 Nasal Parainfluen 3 PCR NOT DETECTED 08/06/22 09:50 Nasal Parainfluen 4 PCR NOT DETECTED 08/06/22 09:50 Nasal RSV (PCR) NOT DETECTED 08/06/22 09:50 Nasal B.pertussis DNA PCR NOT DETECTED 08/06/22 09:50 Nasal C.pneumoniae (PCR) NOT DETECTED 08/06/22 09:50 Mauricio Human Metapneumo PCR NOT DETECTED 08/06/22 09:50 Nasal M.pneumoniae (PCR) NOT DETECTED 08/06/22 09:50 Nasal SARS-CoV-2 (PCR) DETECTED A 08/06/22 09:50 Stl C. diff Tox B Gene NEGATIVE (NEGATIVE) 08/07/22 17:45 Ethyl Alcohol < 5.0 mg/dL 08/06/22 09:40
[2022-08-09] MEDS: REMDESIVIR 100 MG in SODIUM CHLORIDE 0.9% 100ML 100 ML IV SCH (10:34)
[2022-08-09] MEDS: POTASSIUM PHOSPHATE 15 MMOL in SODIUM CHLORIDE 0.9% 250 ML IV SCH ×2 (13:15→17:55)
[2022-08-09] MEDS: SODIUM CHLORIDE 0.9% 1,000 ML IV SCH (15:47)
[2022-08-10] MEDS: SODIUM CHLORIDE FLUSH 0.9% 10 ML SYRINGE IVP SCH ×3 (00:01→16:50)
[2022-08-10 05:53] LABS: BASOPHILS % (AUTO) 0.3 %; HCT - HEMATOCRIT 37.2 % (37.0-47.0); HGB - HEMOGLOBIN 13.5 g/dL (12.0-16.0); LYMPHOCYTES # (AUTO) 0.5 10^3/uL (1.5-3.5); LYMPHOCYTES % (AUTO) 7.8 %; MEAN CORPUSCULAR HEMOGLOBIN 37.9 pg (27.0-31.0); MEAN CORPUSCULAR HGB CONC 36.3 g/dL (32.0-36.0); MEAN CORPUSCULAR VOLUME 104.5 fL (81.0-99.0); MEAN PLATELET VOLUME 9.9 fL (7.9-10.8); MONOCYTES # (AUTO) 0.9 10^3/uL (0.0-1.0); MONOCYTES % (AUTO) 15.5 %; NEUTROPHILS # (AUTO) 4.4 10^3/uL (1.5-6.6); NEUTROPHILS % (AUTO) 75.2 %; PLT - PLATELET COUNT 220 10^3/uL (130-450); RED BLOOD COUNT 3.56 10^6/uL (4.20-5.40); RED CELL DISTRIBUTION WIDTH 11.1 % (12.0-15.0); WHITE BLOOD COUNT 5.8 x10^3/uL (4.8-10.8)
[2022-08-10 06:01] LABS: ALBUMIN 2.8 g/dL (3.2-5.5); ALBUMIN/GLOBULIN RATIO 1.1 (1.0-2.2); BILIRUBIN,TOTAL 0.7 mg/dL (0.2-1.0); CALCIUM 7.9 mg/dL (8.5-10.3); CREATININE 0.4 mg/dL (0.4-1.0); POTASSIUM 2.8 mmol/L (3.5-5.0); TOTAL PROTEIN 5.3 g/dL (6.7-8.2)
[2022-08-10] MEDS: IPRATROPIUM/ALBUTEROL 3 ML NEB INH SCH ×4 (07:10→21:00)
[2022-08-10] MEDS: SODIUM CHLORIDE 0.9% 1,000 ML IV SCH (08:14)
--- NOTE | 2022-08-10 08:14 | PROVIDER PROGRESS NOTE ---
Assessment/Plan - Problem List (1) COVID-19 Assessment/Plan: She had a slight left lower lobe infiltrate on chest x-ray. She received azithromycin and Rocephin in the ER. Empiric Azithromycin 500 mg IV for 3 days planned and is completed now Since 08/09 she had good O2 saturations even when walking with PT, on room air. Remdesivir was therefore stopped after the 08/09 dose, since she does not need suppl O2 at rest or with activity Plan: Decadron will be stopped Empiric Rocephin IV for 5 days planned DVT prophylaxis will be Lovenox 40 mg subcu. COVID increases her thrombosis risk. (2) Hypokalemia All labs were reviewed. This morning her K is 2.8. This could be from her mark rrhea or from poor p.o. intake Plan: I will give her K riders again and start daily K po Follow BMP daily I anticipate her discharge to be when her potassium is in a normal range. I updated the at bedside with this plan. (3) Diarrhea Conclusion/Plan: Improving from having watery diarrhea and 3 BMs 2 days ago, yesterday just 2 BMs. Her stool for C. difficile by PCR test came back neg This could be her GI symptoms of COVID or due to being on antibx Plan: Cont prn Imodium and scheduled probiotics BID (4) Asthma with COPD with exacerbation Conclusion/Plan: She likely has atopic syndrome with allergic rhinitis and asthma, which usually is well controlled, but this COVID infection destabilized her. She still has a productive cough. He has a much stronger cough than she did at admission since she is more alert and not as weak now. Plan: Will now stop the iv Decadron Cont DuoNeb on a schedule QID while awake Cont Mucinex 600 mg p.o. twice daily Cont Singular 10 mg p.o. daily (5) Alcohol abuse Conclusion/Plan: She was seen in the ER for alcohol intoxication in 2017. Macrocytosis was evaluated and felt to be due to alcohol abuse. Elevated liver enzymes were also felt to be to alcohol abuse. Both of those lab indices of liver and CBC are still present: her AST/ALT were 74/58 at admission and these are normal today. Her MCV is running 107. Patient reported at admission that she drinks 2 glasses of wine a day. When I updated the at bedside regarding her condition on 08/08, he reported that she drinks 2 to 4 glasses of wine per day. Has been trying to get her to decrease and she will not. I told the patient and on at bedside on 08/08 that 1 glass of wine per day is allowed and felt to be safe for women A CIWA protocol was ordered 08/07 and she was scoring 7-8, and needed iv Ativan. Folic acid level came back low and her B12 level came back low (all labs were reviewed). PT and OT started working with her. She has a shuffling gait and poor balance. A CT scan was done since there was none at admission, and this showed brain atrophy, no acute changes. I informed the of this result on 08/09, and that I suspect it could be from longstanding alcohol abuse Plan: Cont Thiamine 100 mg a day Cont Folic acid po daily She got B12 IM x1 then B12 p.o. daily ordered Will now stop the CIWA protocol and prn Ativan treatment, since she is 4 days out from admission. The patient will need PT and OT. Yesterday the agreed to have her go to a SNF. When he was given the SNF choices today, he changed his mind, and said he does not want her to go to SNF. He said that the "neighbor can do exercises with her". I told him this is not a stable plan, and that she needs home health PT and OT which he agreed to. I will put in a referral for home health PT, OT, RN, bath aide, and social psychologist. (6) Folic acid deficiency As per Labs Plan: Replacement ordered (7) Weakness generalized Conclusion/Plan: Present even before she came to the hospital. She was laying on the floor for a day and a half because she had no strength to get up. PT and OT reported a shuffling gait and marked confusion. Therefore a head CT was done, because it was not done at admission. This showed brain atrophy but no acute findings. I updated the about her weakness, the CT head result, and her overall condition. I suspect she may have significant brain atrophy from longstanding alcohol abuse Plan: PT and OT treatment to continue while here. New plan is to have her get PT and OT with a home health agency (8) Chronic diastolic heart failure Conclusion/Plan: This was based on an Echocardiogram from 2015. In reading the cardiology notes, the sheriff's officer did not really feel this patient was suffering from symptoms of CHF. The pt was prescribed a beta-noelle, and ARB. The patient was given Lasix to be taken on as needed basis. Plan: I stopped her IV fluids, which were ordered because of her weakness. Cont p.o. hydration (9) SYCUAN Conclusion/Plan: Part of her confusion could be from poor hearing. Plan: She needs her hearing aids. was asked to bring those in. Today the told me she does not like to wear them therefore he did not bring them i n. (10) Hx of Hypertension Conclusion/Plan: She was on Metoprolol 25 mg daily at home. Plan: The admitting provider resumed her beta-noelle and I added parameters of when to hold the Metoprolol Qualifiers: Hypertension type: primary hypertension Qualified Code(s): I10 - Essential (primary) hypertension (11) Acute respiratory failure with hypoxia Assessment/Plan: Hypoxia has resolved. VS were reviewed and sats are 97% at rest on room air. And with activity, her O2 sat is 95% on room air - Current Meds Current Meds: Current Medications Generic Name Dose Route Start Last Admin Trade Name Freq PRN Reason Stop Dose Admin Albuterol/Ipratropium 3 ml 08/06/22 15:00 08/10/22 07:10 Ipratropium/Albuterol 3 Ml Neb INH 3 ml RTQID ADIA Administration Cholecalciferol 50 mcg 08/07/22 17:00 08/09/22 09:44 Cholecalciferol 25 Mcg Tablet PO 50 mcg DAILY ADIA Administration Cyanocobalamin 500 mcg 08/09/22 09:00 08/09/22 09:45 Cyanocobalamin 500 Mcg Tablet PO 500 mcg DAILY ADIA Administration Dexamethasone 6 mg 08/07/22 09:00 08/09/22 09:44 Dexamethasone 4 Mg/Ml Vial IVP 6 mg DAILY ADIA Administration Enoxaparin Sodium 40 mg 08/06/22 13:00 08/09/22 09:43 Enoxaparin 40 Mg/0.4 Ml Syringe SUBQ 40 mg DAILY ADIA Administration Ceftriaxone Sodium 1 gm/ 100 mls @ 200 mls/hr 08/07/22 09:00 08/09/22 10:33 Sodium Chloride IV Infused DAILY ADIA Infusion Sodium Chloride 1,000 mls @ 40 mls/hr 08/07/22 10:00 08/09/22 21:55 Normal Saline 0.9% IV 40 mls/hr .Q25H ADIA Infusion Lorazepam 1 mg 08/07/22 09:14 08/08/22 07:39 Lorazepam 2 Mg/Ml Vial IVP 1 mg Q30M PRN Administration CIWA >8 Protocol Metoprolol Succinate 25 mg 08/07/22 09:23 08/09/22 09:44 Metoprolol Succinate 25 Mg Tablet PO 25 mg DAILY ADIA Administration Multi-Ingredient Ointment 1 applic 08/06/22 13:59 08/06/22 14:11 Zinc Oxide 20% Oint 30 Gm Tube TOP 1 applic PRN PRN Administration Skin Care Multivit/Folic Acid/Iron 1 tab 08/08/22 09:00 08/09/22 09:44 Vitamin Tablet PO 1 tab DAILY ADIA Administration Saccharomyces Boulardii 250 mg 08/08/22 17:00 08/09/22 17:55 Saccharomyces Boulardii 250 Mg Capsule PO 250 mg BIDWM ADIA Administration Sodium Chloride 10 ml 08/06/22 12:06 08/07/22 22:17 Sodium Chloride Flush 0.9% 10 Ml Syringe IVP 10 ml PRN PRN Administration NEEDED PER PROVIDER ORDERS Sodium Chloride 10 ml 08/06/22 17:00 08/10/22 00:01 Sodium Chloride Flush 0.9% 10 Ml Syringe IVP Not Given 0100,0900,1700 ADIA Thiamine HCl 100 mg 08/08/22 09:00 08/09/22 09:44 Thiamine 100 Mg Tablet PO 100 mg DAILY ADIA Administration - Lab Result Fish Bone Diagrams: 08/10/22 05:24 08/10/22 05:24 - Additional Planning My Orders: My Active Orders 08/09/22 09:00 Cyanocobalamin [Vitamin B-12] 500 mcg PO DAILY 08/09/22 Lunch Regular Diet [DIET] 08/10/22 09:00 Potassium Chloride [Micro-K] 20 meq PO DAILYWM Potassium Chloride/Water 10 mEq/100 mL q1h (Enter # of bags) Potassium Chlor 10 Meq/100 ml [Potassium Chloride] 10 meq in 100 ml IV Q1H Subjective - Subjective Patient Reports: Resting Comfortably, No Complaints Nursing Reports: Other (Stairs back when asked a question, unsure if she does not understand or does not hear. Has poor balance, needs assistance when walking) Objective Vital Signs: Vital Signs - 24 hr 08/09/22 08/09/22 08/09/22 10:52 11:47 16:56 Temperature 36.6 C Heart Rate 86 Heart Rate [ 74 Brachial] Heart Rate [ 78 Monitoring electrodes] Respiratory 18 20 24 Rate Blood Pressure 141/84 H [Left Brachial artery] O2 Saturation 92 97 08/09/22 08/09/22 08/10/22 20:30 23:32 07:11 Temperature 36.4 C L Heart Rate 76 78 Heart Rate [ 77 Brachial] Heart Rate [ Monitoring electrodes] Respiratory 24 24 20 Rate Blood Pressure 144/77 H [Left Brachial artery] O2 Saturation 92 Oxygen O2 Source [With Activity] Room air O2 Source Room air Oxygen Flow Rate 4 I&O (Last 24 Hrs): Intake and Output Totals x24h 08/08/22 08/09/22 08/10/22 23:59 23:59 23:59 Intake Total 9817.692 1281.333 Output Total 143 824 4359 Balance 8510.141 3665.333 -1200 General: Alert, No acute distress HEENT: Mucous membr. moist/pink, Other (Disheveled) Neck: Supple, No JVD Neuro: Alert, Other (SYCUAN. Stairs at the person speaking to her without answering, unsure if she cannot hear or not understand.) Cardiovascular: Regular rate Respiratory: No respiratory distress Abdomen: Normal bowel sounds, Soft Extremities: No clubbing, No edema, No tenderness/swelling - Results Results: Laboratory Results WBC 5.8 x10^3/uL (4.8-10.8) 08/10/22 05:24 RBC 3.56 10^6/uL (4.20-5.40) L 08/10/22 05:24 Hgb 13.5 g/dL (12.0-16.0) 08/10/22 05:24 Hct 37.2 % (37.0-47.0) 08/10/22 05:24 MCV 104.5 fL (81.0-99.0) H 08/10/22 05:24 MCH 37.9 pg (27.0-31.0) H 08/10/22 05:24 MCHC 36.3 g/dL (32.0-36.0) H 08/10/22 05:24 RDW 11.1 % (12.0-15.0) L 08/10/22 05:24 Plt Count 220 10^3/uL (130-450) 08/10/22 05:24 MPV 9.9 fL (7.9-10.8) 08/10/22 05:24 Neut # (Auto) 4.4 10^3/uL (1.5-6.6) 08/10/22 05:24 Lymph # (Auto) 0.5 10^3/uL (1.5-3.5) L 08/10/22 05:24 [place] # (Auto) 0.9 10^3/uL (0.0-1.0) 08/10/22 05:24 Eos # (Auto) 0.0 10^3/uL (0.0-0.7) 08/10/22 05:24 Baso # (Auto) 0.0 10^3/uL (0.0-0.1) 08/10/22 05:24 Absolute Nucleated RBC 0.00 x10^3/uL 08/10/22 05:24 Total Counted 100 08/07/22 04:35 Band Neuts % (Manual) 12 % (0-10) H 08/07/22 04:35 Abnorm Lymph % (Manual) 0 % 08/07/22 04:35 Metamyelocytes % 2 % (-0) H 08/07/22 04:35 Nucleated RBC % 0.0 /100WBC 08/10/22 05:24 Neutrophils # (Manual) 7.2 10^3/uL (1.5-6.6) H 08/07/22 04:35 Lymphocytes # (Manual) 0.5 10^3/uL (1.5-3.5) L 08/07/22 04:35 Monocytes # (Manual) 0.4 10^3/uL (0.0-1.0) 08/07/22 04:35 Eosinophils # (Manual) 0.0 10^3/uL (0-0.7) 08/07/22 04:35 Basophils # (Manual) 0.0 10^3/uL (0-0.1) 08/07/22 04:35 Differential Comment MANUAL DIFFERENTIAL 08/07/22 04:35 Manual Slide Review Indicated 08/06/22 09:40 WBC Morphology NORMAL APPEARANCE (NORMAL) 08/07/22 04:35 Platelet Estimate NORMAL (130-450,000) (NORMAL) 08/07/22 04:35 Platelet Morphology NORMAL APPEARANCE (NORMAL) 08/07/22 04:35 RBC Morph Micro Appear NORMAL APPEARANCE (NORMAL) 08/07/22 04:35 Sodium 134 mmol/L (135-145) L 08/10/22 05:24 Potassium 2.8 mmol/L (3.5-5.0) L 08/10/22 05:24 Chloride 97 mmol/L (101-111) L 08/10/22 05:24 Carbon Dioxide 28 mmol/L (21-32) 08/10/22 05:24 Anion Gap 9.0 (6-13) 08/10/22 05:24 BUN 8 mg/dL (6-20) 08/10/22 05:24 Creatinine 0.4 mg/dL (0.4-1.0) 08/10/22 05:24 Estimated GFR (MDRD) 154 (>89) 08/10/22 05:24 Glucose 143 mg/dL (70-100) H 08/10/22 05:24 Calcium 7.9 mg/dL (8.5-10.3) L 08/10/22 05:24 Phosphorus 2.0 mg/dL (2.5-4.6) L 08/09/22 04:38 Magnesium 2.1 mg/dL (1.7-2.8) 08/09/22 04:38 Total Bilirubin 0.7 mg/dL (0.2-1.0) 08/10/22 05:24 AST 26 IU/L (10-42) 08/10/22 05:24 ALT 34 IU/L (10-60) 08/10/22 05:24 Alkaline Phosphatase 38 IU/L (42-121) L 08/10/22 05:24 Total Creatine Kinase 183 IU/L (22-269) 08/07/22 09:15 B-Natriuretic Peptide 244 pg/mL (5-100) H 08/06/22 09:40 Total Protein 5.3 g/dL (6.7-8.2) L 08/10/22 05:24 Albumin 2.8 g/dL (3.2-5.5) L 08/10/22 05:24 Globulin 2.5 g/dL (2.1-4.2) 08/10/22 05:24 Albumin/Globulin Ratio 1.1 (1.0-2.2) 08/10/22 05:24 Lipase 26 U/L (22-51) 08/06/22 09:40 Vitamin B12 143 pg/mL (180-914) L 08/07/22 04:35 Folate 4.61 ng/mL (5.90 - >24.8) L 08/07/22 04:35 Nasal Adenovirus (PCR) NOT DETECTED 08/06/22 09:50 Nasal B. parapertussis DNA (PCR) NOT DETECTED 08/06/22 09:50 Nasal Coronavir 229E PCR NOT DETECTED 08/06/22 09:50 Nasal Coronavir HKU1 PCR NOT DETECTED 08/06/22 09:50 Nasal Coronavir NL63 PCR NOT DETECTED 08/06/22 09:50 Nasal Coronavir OC43 PCR NOT DETECTED 08/06/22 09:50 Nasal Enterovir/Rhinovir PCR NOT DETECTED 08/06/22 09:50 Nasal Influenza B PCR NOT DETECTED 08/06/22 09:50 Nasal Influenza A PCR NOT DETECTED 08/06/22 09:50 Nasal Parainfluen 1 PCR NOT DETECTED 08/06/22 09:50 Nasal Parainfluen 2 PCR NOT DETECTED 08/06/22 09:50 Nasal Parainfluen 3 PCR NOT DETECTED 08/06/22 09:50 Nasal Parainfluen 4 PCR NOT DETECTED 08/06/22 09:50 Nasal RSV (PCR) NOT DETECTED 08/06/22 09:50 Nasal B.pertussis DNA PCR NOT DETECTED 08/06/22 09:50 Nasal C.pneumoniae (PCR) NOT DETECTED 08/06/22 09:50 [place] Human Metapneumo PCR NOT DETECTED 08/06/22 09:50 Nasal M.pneumoniae (PCR) NOT DETECTED 08/06/22 09:50 Nasal SARS-CoV-2 (PCR) DETECTED A 08/06/22 09:50 Stl C. diff Tox B Gene NEGATIVE (NEGATIVE) 08/07/22 17:45 Ethyl Alcohol < 5.0 mg/dL 08/06/22 09:40
[2022-08-10] MEDS: ENOXAPARIN 40 MG/0.4 ML SYRINGE SUBQ SCH (09:42)
[2022-08-10] MEDS: CHOLECALCIFEROL 25 MCG TABLET PO SCH (09:43)
[2022-08-10] MEDS: CYANOCOBALAMIN 500 MCG TABLET PO SCH (09:43)
[2022-08-10] MEDS: METOPROLOL SUCCINATE 25 MG TABLET PO SCH (09:43)
[2022-08-10] MEDS: PRENATAL VITAMIN TABLET PO SCH (09:43)
[2022-08-10] MEDS: POTASSIUM CHLORIDE 10 MEQ CAPSULE PO SCH (09:43)
[2022-08-10] MEDS: DEXAMETHASONE 4 MG/ML VIAL IVP SCH (09:44)
[2022-08-10] MEDS: SACCHAROMYCES BOULARDII 250 MG CAPSULE PO SCH ×2 (09:44→16:50)
[2022-08-10] MEDS: THIAMINE 100 MG TABLET PO SCH (09:44)
[2022-08-10] MEDS: POTASSIUM CHLOR 10 MEQ/100 ML 10 MEQ/100 ML BAG IV SCH ×4 (09:45→14:25)
[2022-08-10] MEDS: cefTRIAXone 1 GM in SODIUM CHLORIDE 0.9% MINIBAG 100 ML IV SCH (09:45)
[2022-08-10] MEDS: ZINC OXIDE 20% OINT 30 GM TUBE TOP PRN (13:36)
[2022-08-11] MEDS: ZINC OXIDE 20% OINT 30 GM TUBE TOP PRN ×3 (01:00→17:10)
[2022-08-11] MEDS: SODIUM CHLORIDE FLUSH 0.9% 10 ML SYRINGE IVP SCH ×3 (01:00→17:17)
[2022-08-11 05:30] LABS: BASOPHILS % (AUTO) 0.3 %; HCT - HEMATOCRIT 41.8 % (37.0-47.0); HGB - HEMOGLOBIN 14.8 g/dL (12.0-16.0); LYMPHOCYTES # (AUTO) 0.7 10^3/uL (1.5-3.5); LYMPHOCYTES % (AUTO) 11.3 %; MEAN CORPUSCULAR HGB CONC 35.4 g/dL (32.0-36.0); MEAN CORPUSCULAR VOLUME 104.5 fL (81.0-99.0); MEAN PLATELET VOLUME 9.8 fL (7.9-10.8); MONOCYTES # (AUTO) 1.4 10^3/uL (0.0-1.0); MONOCYTES % (AUTO) 21.3 %; NEUTROPHILS # (AUTO) 4.1 10^3/uL (1.5-6.6); NEUTROPHILS % (AUTO) 63.2 %; PLT - PLATELET COUNT 259 10^3/uL (130-450); WHITE BLOOD COUNT 6.5 x10^3/uL (4.8-10.8)
[2022-08-11 05:40] LABS: CALCIUM 8.6 mg/dL (8.5-10.3); CREATININE 0.4 mg/dL (0.4-1.0); POTASSIUM 3.2 mmol/L (3.5-5.0)
[2022-08-11] MEDS: IPRATROPIUM/ALBUTEROL 3 ML NEB INH SCH ×4 (08:21→17:49)
[2022-08-11] MEDS: PRENATAL VITAMIN TABLET PO SCH (09:11)
[2022-08-11] MEDS: METOPROLOL SUCCINATE 25 MG TABLET PO SCH (09:11)
[2022-08-11] MEDS: SACCHAROMYCES BOULARDII 250 MG CAPSULE PO SCH ×2 (09:12→17:18)
[2022-08-11] MEDS: POTASSIUM CHLORIDE 10 MEQ CAPSULE PO SCH (09:12)
[2022-08-11] MEDS: CHOLECALCIFEROL 25 MCG TABLET PO SCH (09:12)
[2022-08-11] MEDS: ENOXAPARIN 40 MG/0.4 ML SYRINGE SUBQ SCH (09:13)
[2022-08-11] MEDS: CYANOCOBALAMIN 500 MCG TABLET PO SCH (09:13)
[2022-08-11] MEDS: THIAMINE 100 MG TABLET PO SCH (09:13)
--- NOTE | 2022-08-11 11:45 | PROVIDER PROGRESS NOTE ---
Assessment/Plan - Problem List (1) Hypokalemia Assessment/Plan: All labs were reviewed. Yesterday her K was 2.8 and she got replacements, today K is 3.2. This could be from her diarrhea or from poor p.o. intake Plan: I will give her K riders again and cont daily K po Follow BMP daily Check magnesium to assure this is also replete I anticipate her discharge to be when her potassium is in a normal range. I updated the at bedside with this plan today. (2) Diarrhea Conclusion/Plan: Improving from having watery diarrhea. Her stool for C. difficile by PCR test came back neg. Last stools moderate and loose (notes were reviewed) This could be her GI symptoms of COVID or due to being on antibx Plan: Cont prn Imodium and scheduled probiotics BID (3) Alcohol abuse Conclusion/Plan: She was seen in the ER for alcohol intoxication in 2016. Macrocytosis was evaluated and felt to be due to alcohol abuse. Elevated liver enzymes were also felt to be to alcohol abuse. Both of those lab indices of liver and CBC are still present: her AST/ALT were 74/58 at admission and these are normal today. Her MCV is running 107. Patient reported at admission that she drinks 2 glasses of wine a day. When I updated the at bedside regarding her condition on 08/08, he reported that she drinks 2 to 4 glasses of wine per day. Has been trying to get her to decrease and she will not. I told the patient and on at bedside on 08/08 that 1 glass of wine per day is allowed and felt to be safe for women A CIWA protocol was ordered 08/07 and she was scoring 7-8, and needed iv Ativan. I stopped the CIWA protocol and prn Ativan treatment yesterday 08/10. Folic acid level came back low and her B12 level came back low (all labs were reviewed). PT and OT started working with her. She has a shuffling gait and poor balance. A CT scan was done since there was none at admission, and this showed brain atrophy, no acute changes. I informed the of this result on 08/09, and that I suspect it could be from longstanding alcohol abuse Plan: Cont Thiamine 100 mg a day Cont Folic acid po daily She got B12 IM x1 then B12 p.o. daily ordered (4) Folic acid deficiency As per Labs Plan: Replacement ordered (5) Weakness generalized Conclusion/Plan: Present even before she came to the hospital. She was laying on the floor for a day and a half because she had no strength to get up. PT and OT reported a shuffling gait and marked confusion. Therefore a head CT was done, because it was not done at admission. This showed brain atrophy but no acute findings. I updated the about her weakness, the CT head result, and her overall condition. 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 I advised the patient and 2 days ago that she needs SNF and they both agreed. Yesterday 08/10 the refused a SNF, and so the new plan was to have her get PT and OT with a home health agency. Today the changed his mind (he didn't remember being told yesterday about Home Health agencies), and wants her to go to a SNF and was choiced Plan: PT and OT treatment to continue while here. Resume the plan for PT and OT at a SNF (6) Poor memory The patient communicates minimally. Mostly she stares at the person speaking to her and we do not know if she does not hear us or does not understand us Head CT was done that shows atrophy. 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 I advised the patient and 2 days ago that she needs SNF and they both agreed. Yesterday 08/10 the refused a SNF, and so the new plan was to have her get PT and OT with a Home Health agency. Today the changed his mind (he didn't remember being told yesterday about Home Health agencies), and wants her to go to a SNF and he was choiced Plan: We will order a shower with the help of [employer] Resume the plan for PT and OT at a SNF I am planning on submitting an Adult Protective Services report about the husb and with poor memory and patient with poor memory (7) Asthma with COPD with exacerbation Conclusion/Plan: Improved She likely has atopic syndrome with allergic rhinitis and asthma, which usually is well controlled, but this COVID infection destabilized her. She still has a productive cough. He has a much stronger cough than she did at admission since she is more alert and not as weak now. Plan: Will now stop the iv Decadron Cont DuoNeb on a schedule QID while awake Cont Mucinex 600 mg p.o. twice daily Cont Singular 10 mg p.o. daily (7) Chronic diastolic heart failure Conclusion/Plan: This was based on an Echocardiogram from 2015. In reading the cardiology notes, the wafer polishing lead worker did not really feel this patient was suffering from symptoms of CHF. The pt was prescribed a beta-noelle, and ARB. The patient was given Lasix to be taken on as needed basis. Plan: I stopped her IV fluids, which were ordered because of her weakness. Cont p.o. hydration (8) NORTHWAY Conclusion/Plan: Part of her confusion could be from poor hearing. Plan: She needs her hearing aids. was asked to bring those in. The agreed but did not bring that in and said she does not like to wear them therefore he did not bring them in. (9) Hx of Hypertension Conclusion/Plan: She was on Metoprolol 25 mg daily at home. Plan: The admitting provider resumed her beta-noelle and I added parameters of when to hold the Metoprolol Qualifiers: Hypertension type: primary hypertension Qualified Code(s): I10 - Essential (primary) hypertension (11) Acute respiratory failure with hypoxia Assessment/Plan: Hypoxia has resolved. VS were reviewed and sats are 97% at rest on room air. And with activity, her O2 sat is 95% on room air (11) COVID-19 Assessment/Plan: She had a slight left lower lobe infiltrate on chest x-ray. She received azithromycin and Rocephin and is completing courses of those Contact and airborne isolation were ordered and Remdesivir was started. Ot was stopped after the 08/09 dose, since she does not need suppl O2 at rest or with activity Plan: Empiric Rocephin for 5 days planned Cont DVT prophylaxis with Lovenox 40 mg subcu. COVID increases her thrombosis risk. - Current Meds Current Meds: Current Medications Generic Name Dose Route Start Last Admin Trade Name Freq PRN Reason Stop Dose Admin Albuterol/Ipratropium 3 ml 08/06/22 15:00 08/11/22 10:46 Ipratropium/Albuterol 3 Ml Neb INH 3 ml RTQID ADIA Administration Cholecalciferol 50 mcg 08/07/22 17:00 08/11/22 09:12 Cholecalciferol 25 Mcg Tablet PO 50 mcg DAILY ADIA Administration Cyanocobalamin 500 mcg 08/09/22 09:00 08/11/22 09:13 Cyanocobalamin 500 Mcg Tablet PO 500 mcg DAILY ADIA Administration Enoxaparin Sodium 40 mg 08/06/22 13:00 08/11/22 09:13 Enoxaparin 40 Mg/0.4 Ml Syringe SUBQ 40 mg DAILY ADIA Administration Metoprolol Succinate 25 mg 08/07/22 09:23 08/11/22 09:11 Metoprolol Succinate 25 Mg Tablet PO 25 mg DAILY ADIA Administration Multi-Ingredient Ointment 1 applic 08/06/22 13:59 08/11/22 07:04 Zinc Oxide 20% Oint 30 Gm Tube TOP 1 applic PRN PRN Administration Skin Care Potassium Chloride 20 meq 08/10/22 09:00 08/11/22 09:12 Potassium Chloride 10 Meq Capsule PO 20 meq DAILYWM ADIA Administration Multivit/Folic Acid/Iron 1 tab 08/08/22 09:00 08/11/22 09:11 Vitamin Tablet PO 1 tab DAILY ADIA Administration Saccharomyces Boulardii 250 mg 08/08/22 17:00 08/11/22 09:12 Saccharomyces Boulardii 250 Mg Capsule PO 250 mg BIDWM ADIA Administration Sodium Chloride 10 ml 08/06/22 12:06 08/07/22 22:17 Sodium Chloride Flush 0.9% 10 Ml Syringe IVP 10 ml PRN PRN Administration NEEDED PER PROVIDER ORDERS Sodium Chloride 10 ml 08/06/22 17:00 08/11/22 09:13 Sodium Chloride Flush 0.9% 10 Ml Syringe IVP 10 ml 0100,0900,1700 ADIA Administration Thiamine HCl 100 mg 08/08/22 09:00 08/11/22 09:13 Thiamine 100 Mg Tablet PO 100 mg DAILY ADIA Administration - Lab Result Fish Bone Diagrams: 08/11/22 05:16 08/11/22 05:16 - Additional Planning My Orders: My Active Orders 08/11/22 11:19 Shower [RC] ONCE Subjective - Subjective Patient Reports: Resting Comfortably, No Complaints Objective Vital Signs: Vital Signs - 24 hr 08/10/22 08/10/22 08/11/22 15:24 16:46 00:36 Temperature 36.8 C 36.7 C Heart Rate 78 Heart Rate [ 73 Brachial] Heart Rate [ 72 Monitoring electrodes] Respiratory 20 20 16 Rate Blood Pressure 145/77 H 150/68 H [Left Brachial artery] Blood Pressure [Right] O2 Saturation 92 93 08/11/22 08/11/22 08:16 10:50 Temperature 36.3 C L Heart Rate 74 Heart Rate [ 83 Brachial] Heart Rate [ Monitoring electrodes] Respiratory 16 18 Rate Blood Pressure [Left Brachial artery] Blood Pressure 140/74 H [Right] O2 Saturation 98 Oxygen O2 Source [With Activity] Room air O2 Source Room air Oxygen Flow Rate 4 I&O (Last 24 Hrs): Intake and Output Totals x24h 08/09/22 08/10/22 08/11/22 23:59 23:59 23:59 Intake Total 2177.333 2183.334 240 Output Total 850 2400 800 Balance 1327.333 -216.666 -560 General: Alert, No acute distress, Other (Disheveled) HEENT: Mucous membr. moist/pink Neck: Supple, No JVD Neuro: Alert, Disoriented, Non Focal, Other (NORTHWAY) Cardiovascular: No murmurs Respiratory: No respiratory distress Abdomen: Soft Extremities: No clubbing, No edema, No tenderness/swelling - Results Results: Laboratory Results WBC 6.5 x10^3/uL (4.8-10.8) 08/11/22 05:16 RBC 4.00 10^6/uL (4.20-5.40) L 08/11/22 05:16 Hgb 14.8 g/dL (12.0-16.0) 08/11/22 05:16 Hct 41.8 % (37.0-47.0) 08/11/22 05:16 MCV 104.5 fL (81.0-99.0) H 08/11/22 05:16 MCH 37.0 pg (27.0-31.0) H 08/11/22 05:16 MCHC 35.4 g/dL (32.0-36.0) 08/11/22 05:16 RDW 11.0 % (12.0-15.0) L 08/11/22 05:16 Plt Count 259 10^3/uL (130-450) 08/11/22 05:16 MPV 9.8 fL (7.9-10.8) 08/11/22 05:16 Neut # (Auto) 4.1 10^3/uL (1.5-6.6) 08/11/22 05:16 Lymph # (Auto) 0.7 10^3/uL (1.5-3.5) L 08/11/22 05:16 [place] # (Auto) 1.4 10^3/uL (0.0-1.0) H 08/11/22 05:16 Eos # (Auto) 0.0 10^3/uL (0.0-0.7) 08/11/22 05:16 Baso # (Auto) 0.0 10^3/uL (0.0-0.1) 08/11/22 05:16 Absolute Nucleated RBC 0.00 x10^3/uL 08/11/22 05:16 Total Counted 100 08/07/22 04:35 Band Neuts % (Manual) 12 % (0-10) H 08/07/22 04:35 Abnorm Lymph % (Manual) 0 % 08/07/22 04:35 Metamyelocytes % 2 % (-0) H 08/07/22 04:35 Nucleated RBC % 0.0 /100WBC 08/11/22 05:16 Neutrophils # (Manual) 7.2 10^3/uL (1.5-6.6) H 08/07/22 04:35 Lymphocytes # (Manual) 0.5 10^3/uL (1.5-3.5) L 08/07/22 04:35 Monocytes # (Manual) 0.4 10^3/uL (0.0-1.0) 08/07/22 04:35 Eosinophils # (Manual) 0.0 10^3/uL (0-0.7) 08/07/22 04:35 Basophils # (Manual) 0.0 10^3/uL (0-0.1) 08/07/22 04:35 Differential Comment MANUAL DIFFERENTIAL 08/07/22 04:35 Manual Slide Review Indicated 08/06/22 09:40 WBC Morphology NORMAL APPEARANCE (NORMAL) 08/07/22 04:35 Platelet Estimate NORMAL (130-450,000) (NORMAL) 08/07/22 04:35 Platelet Morphology NORMAL APPEARANCE (NORMAL) 08/07/22 04:35 RBC Morph Micro Appear NORMAL APPEARANCE (NORMAL) 08/07/22 04:35 Sodium 130 mmol/L (135-145) L 08/11/22 05:16 Potassium 3.2 mmol/L (3.5-5.0) L 08/11/22 05:16 Chloride 95 mmol/L (101-111) L 08/11/22 05:16 Carbon Dioxide 28 mmol/L (21-32) 08/11/22 05:16 Anion Gap 7.0 (6-13) 08/11/22 05:16 BUN 8 mg/dL (6-20) 08/11/22 05:16 Creatinine 0.4 mg/dL (0.4-1.0) 08/11/22 05:16 Estimated GFR (MDRD) 154 (>89) 08/11/22 05:16 Glucose 132 mg/dL (70-100) H 08/11/22 05:16 Calcium 8.6 mg/dL (8.5-10.3) 08/11/22 05:16 Phosphorus 2.0 mg/dL (2.5-4.6) L 08/09/22 04:38 Magnesium 2.0 mg/dL (1.7-2.8) 08/11/22 05:16 Total Bilirubin 0.7 mg/dL (0.2-1.0) 08/10/22 05:24 AST 26 IU/L (10-42) 08/10/22 05:24 ALT 34 IU/L (10-60) 08/10/22 05:24 Alkaline Phosphatase 38 IU/L (42-121) L 08/10/22 05:24 Total Creatine Kinase 183 IU/L (22-269) 08/07/22 09:15 B-Natriuretic Peptide 244 pg/mL (5-100) H 08/06/22 09:40 Total Protein 5.3 g/dL (6.7-8.2) L 08/10/22 05:24 Albumin 2.8 g/dL (3.2-5.5) L 08/10/22 05:24 Globulin 2.5 g/dL (2.1-4.2) 08/10/22 05:24 Albumin/Globulin Ratio 1.1 (1.0-2.2) 08/10/22 05:24 Lipase 26 U/L (22-51) 08/06/22 09:40 Vitamin B12 143 pg/mL (180-914) L 08/07/22 04:35 Folate 4.61 ng/mL (5.90 - >24.8) L 08/07/22 04:35 Nasal Adenovirus (PCR) NOT DETECTED 08/06/22 09:50 Nasal B. parapertussis DNA (PCR) NOT DETECTED 08/06/22 09:50 Nasal Coronavir 229E PCR NOT DETECTED 08/06/22 09:50 Nasal Coronavir HKU1 PCR NOT DETECTED 08/06/22 09:50 Nasal Coronavir NL63 PCR NOT DETECTED 08/06/22 09:50 Nasal Coronavir OC43 PCR NOT DETECTED 08/06/22 09:50 Nasal Enterovir/Rhinovir PCR NOT DETECTED 08/06/22 09:50 Nasal Influenza B PCR NOT DETECTED 08/06/22 09:50 Nasal Influenza A PCR NOT DETECTED 08/06/22 09:50 Nasal Parainfluen 1 PCR NOT DETECTED 08/06/22 09:50 Nasal Parainfluen 2 PCR NOT DETECTED 08/06/22 09:50 Nasal Parainfluen 3 PCR NOT DETECTED 08/06/22 09:50 Nasal Parainfluen 4 PCR NOT DETECTED 08/06/22 09:50 Nasal RSV (PCR) NOT DETECTED 08/06/22 09:50 Nasal B.pertussis DNA PCR NOT DETECTED 08/06/22 09:50 Nasal C.pneumoniae (PCR) NOT DETECTED 08/06/22 09:50 Mauricio Human Metapneumo PCR NOT DETECTED 08/06/22 09:50 Nasal M.pneumoniae (PCR) NOT DETECTED 08/06/22 09:50 Nasal SARS-CoV-2 (PCR) DETECTED A 08/06/22 09:50 Stl C. diff Tox B Gene NEGATIVE (NEGATIVE) 08/07/22 17:45 Ethyl Alcohol < 5.0 mg/dL 08/06/22 09:40
[2022-08-12] MEDS: ZINC OXIDE 20% OINT 30 GM TUBE TOP PRN ×4 (00:38→16:20)
[2022-08-12] MEDS: SODIUM CHLORIDE FLUSH 0.9% 10 ML SYRINGE IVP SCH ×3 (00:38→16:15)
[2022-08-12] MEDS: IPRATROPIUM/ALBUTEROL 3 ML NEB INH SCH ×4 (06:42→18:42)
[2022-08-12] MEDS: POTASSIUM CHLORIDE 10 MEQ CAPSULE PO SCH ×2 (08:47→16:15)
[2022-08-12] MEDS: ENOXAPARIN 40 MG/0.4 ML SYRINGE SUBQ SCH (08:47)
[2022-08-12] MEDS: CHOLECALCIFEROL 25 MCG TABLET PO SCH (08:48)
[2022-08-12] MEDS: THIAMINE 100 MG TABLET PO SCH (08:48)
[2022-08-12] MEDS: PRENATAL VITAMIN TABLET PO SCH (08:48)
[2022-08-12] MEDS: METOPROLOL SUCCINATE 25 MG TABLET PO SCH (08:48)
[2022-08-12] MEDS: SACCHAROMYCES BOULARDII 250 MG CAPSULE PO SCH ×2 (08:48→16:14)
[2022-08-12] MEDS: CYANOCOBALAMIN 500 MCG TABLET PO SCH (08:48)
[2022-08-12 09:09] LABS: CALCIUM 8.7 mg/dL (8.5-10.3); CREATININE 0.7 mg/dL (0.4-1.0); PHOSPHORUS 3.9 mg/dL (2.5-4.6); POTASSIUM 3.3 mmol/L (3.5-5.0)
--- NOTE | 2022-08-12 12:10 | PROVIDER PROGRESS NOTE ---
Assessment/Plan - Problem List (1) Hypokalemia Assessment/Plan: All labs were reviewed. On 08/10 her K was 2.8 and she got replacements>> K 3.2 yesterday and K is 3.3 today. This could be from her diarrhea or from poor p.o. intake Plan: I will give her K riders again and increase her daily K po to BID Follow BMP daily Check magnesium to assure this is also replete I anticipate her discharge to be when her potassium is in a normal range. (2) Diarrhea Conclusion/Plan: Improving from having watery diarrhea. Her stool for C. difficile by PCR test came back neg. Last stools moderate and loose (notes were reviewed) This could be her GI symptoms of COVID or due to being on antibx Plan: Cont prn Imodium and scheduled probiotics BID (3) Alcohol abuse Conclusion/Plan: In 2016, she was seen in the ER for alcohol intoxication. Macrocytosis and elevated liver enzymes were present and felt to be due to alcohol abuse. Both of those lab indices of liver and her MCV are still present: her AST/ALT were 74/58 at admission. Her MCV is running 107. Patient reported at admission that she drinks 2 glasses of wine a day. When I updated the at bedside regarding her condition on 08/08, he reported that she drinks 2 to 4 glasses of wine per day. He said he has been trying to get her to decrease alcohol intake and she will not. I told the patient and at bedside on 08/08, that 1 glass of wine per day is allowed and felt to be safe for women A CIWA protocol was ordered 08/07 and she was scoring 7-8, and needed iv Ativan. I stopped the CIWA protocol and prn Ativan treatment 08/10. Folic acid level came back low and her B12 level came back low (all labs were reviewed). PT and OT started working with her. She has a shuffling gait, retropulsion and poor balance. A CT scan was done since there was none at admission, and this showed brain atrophy, no acute changes. I informed the of this result on 08/09, and that I suspect it could be from longstanding alcohol abuse Plan: Cont Thiamine 100 mg a day Cont Folic acid po daily She got B12 IM x1 then B12 p.o. daily ordered (4) Folic acid deficiency As per Labs Plan: Replacement ordered (5) Weakness generalized Conclusion/Plan: Present even before she came to the hospital. She was laying on the floor for a day and a half because she had no strength to get up. PT and OT reported a shuffling gait, retropulsion and marked confusion. Therefore a head CT was done, because it was not done at admission. This showed brain atrophy but no acute findings. I updated the about her weakness, the CT head result, and her overall condition. 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 I advised the patient and that she needs SNF and they both agreed. Then on 08/10 the refused a SNF, and so the new plan was to have her get PT and OT with a home health agency. Then on 08/11, the changed his mind and wants her to go to a SNF and was choiced (but he he didn't remember being told about Home Health agencies) Plan: I ordered a shower with the help of [employer]'s PT and OT treatment to continue while here. Resume the plan for PT and OT at a SNF (6) Poor memory The patient communicates minimally. Mostly she stares at the person speaking to her and we do not know if she does not hear us or does not understand us Head CT was done that shows atrophy. 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 I advised the patient and that she needs SNF and they both agreed. On 08/10 the refused a SNF, and so the new plan was to have her get PT and OT with a Home Health agency. On 08/11 the changed his mind and wants her to go to a SNF and he was choiced (but he didn't remember on 08/11 being told about Home Health agencies on 08/10) Plan: Resume the plan for PT and OT at a SNF I am planning on submitting an Adult Protective Services report about the with poor memory being the caregiver of this patient with poor memory (7) Asthma with COPD with exacerbation Conclusion/Plan: Improved She likely has atopic syndrome with allergic rhinitis and asthma, which usually is well controlled, but this COVID infection destabilized her. She still has a productive cough. He has a much stronger cough than she did at admission since she is more alert and not as weak now. I stopped the iv Decadron Plan: Cont DuoNeb on a schedule QID while awake Cont Mucinex 600 mg p.o. twice daily Cont Singular 10 mg p.o. daily (7) Chronic diastolic heart failure Conclusion/Plan: This was based on an Echocardiogram from 2015. The pt was prescribed a beta- noelle and ARB, and Lasix to be taken on as needed basis. There has been no evidence of volume overload while here I stopped her IV fluids, which were ordered because of her weakness. Plan: Cont present meds and p.o. hydration (8) SELDOVIA Conclusion/Plan: Part of her confusion could be from poor hearing. Plan: She needs her hearing aids. was asked to bring those in. The agreed but then did not bring that in and said she does not like to wear them therefore he did not bring them in. (9) Hx of Hypertension Conclusion/Plan: She was on Metoprolol 25 mg daily at home. Plan: The admitting provider resumed her beta-noelle and I added parameters of when to hold the Metoprolol Qualifiers: Hypertension type: primary hypertension Qualified Code(s): I10 - Essential (primary) hypertension (11) Acute respiratory failure with hypoxia Assessment/Plan: Hypoxia has resolved. VS were reviewed and sats are 97% at rest on room air. And with activity, her O2 sat is 95% on room air (11) COVID-19 Assessment/Plan: She had a slight left lower lobe infiltrate on chest x-ray. She received azithromycin and Rocephin and is completing courses of those Contact and airborne isolation were ordered and Remdesivir was started. Remdesivir was stopped after the 08/09 dose, since she does not need suppl O2 at rest or with activity Empiric Rocephin for 5 days was planned and was completed Plan: Cont DVT prophylaxis with Lovenox 40 mg subcu. COVID increases her thrombosis risk. - Current Meds Current Meds: Current Medications Generic Name Dose Route Start Last Admin Trade Name Freq PRN Reason Stop Dose Admin Albuterol/Ipratropium 3 ml 08/06/22 15:00 08/12/22 11:19 Ipratropium/Albuterol 3 Ml Neb INH 3 ml RTQID ADIA Administration Cholecalciferol 50 mcg 08/07/22 17:00 08/12/22 08:48 Cholecalciferol 25 Mcg Tablet PO 50 mcg DAILY ADIA Administration Cyanocobalamin 500 mcg 08/09/22 09:00 08/12/22 08:48 Cyanocobalamin 500 Mcg Tablet PO 500 mcg DAILY ADIA Administration Enoxaparin Sodium 40 mg 08/06/22 13:00 08/12/22 08:47 Enoxaparin 40 Mg/0.4 Ml Syringe SUBQ 40 mg DAILY ADIA Administration Metoprolol Succinate 25 mg 08/07/22 09:23 08/12/22 08:48 Metoprolol Succinate 25 Mg Tablet PO 25 mg DAILY ADIA Administration Multi-Ingredient Ointment 1 applic 08/06/22 13:59 08/12/22 08:48 Zinc Oxide 20% Oint 30 Gm Tube TOP 1 applic PRN PRN Administration Skin Care Multivit/Folic Acid/Iron 1 tab 08/08/22 09:00 08/12/22 08:48 Vitamin Tablet PO 1 tab DAILY ADIA Administration Saccharomyces Boulardii 250 mg 08/08/22 17:00 08/12/22 08:48 Saccharomyces Boulardii 250 Mg Capsule PO 250 mg BIDWM ADIA Administration Sodium Chloride 10 ml 08/06/22 12:06 08/07/22 22:17 Sodium Chloride Flush 0.9% 10 Ml Syringe IVP 10 ml PRN PRN Administration NEEDED PER PROVIDER ORDERS Sodium Chloride 10 ml 08/06/22 17:00 08/12/22 08:49 Sodium Chloride Flush 0.9% 10 Ml Syringe IVP 10 ml 0100,0900,1700 ADIA Administration Thiamine HCl 100 mg 08/08/22 09:00 08/12/22 08:48 Thiamine 100 Mg Tablet PO 100 mg DAILY ADIA Administration - Lab Result Fish Bone Diagrams: 08/11/22 05:16 08/12/22 08:53 - Additional Planning My Orders: My Active Orders 08/11/22 11:19 Shower [RC] ONCE 08/12/22 11:00 Potassium Chlor 10 Meq/100 ml [Potassium Chloride] 10 meq in 100 ml IV Q1H 08/12/22 17:00 Potassium Chloride [Micro-K] 20 meq PO BIDWM Subjective - Subjective Patient Reports: Resting Comfortably, No Complaints Objective Vital Signs: Vital Signs - 24 hr 08/11/22 08/11/22 08/11/22 15:54 16:57 17:49 Temperature 36.7 C Heart Rate 73 78 Heart Rate [ 86 Brachial] Respiratory 18 16 19 Rate Blood Pressure 129/70 [Right Brachial artery] O2 Saturation 94 08/12/22 08/12/22 08/12/22 00:03 06:45 07:56 Temperature 36.4 C L 36.3 C L Heart Rate 84 Heart Rate [ 65 82 Brachial] Respiratory 16 19 18 Rate Blood Pressure 117/62 135/87 H [Right Brachial artery] O2 Saturation 96 95 08/12/22 11:19 Temperature Heart Rate 69 Heart Rate [ Brachial] Respiratory 19 Rate Blood Pressure [Right Brachial artery] O2 Saturation Oxygen O2 Source [With Activity] Room air O2 Source Room air Oxygen Flow Rate 4 I&O (Last 24 Hrs): Intake and Output Totals x24h 08/10/22 08/11/22 08/12/22 23:59 23:59 23:59 Intake Total 2183.334 850 300 Output Total 2400 1300 200 Balance -216.666 -450 100 General: Alert, No acute distress, Other (Disheveled) HEENT: Mucous membr. moist/pink Neck: Supple, No JVD Neuro: Alert, Disoriented, Non Focal Cardiovascular: No murmurs Respiratory: No respiratory distress Abdomen: Soft Extremities: No clubbing, No edema, No tenderness/swelling - Results Results: Laboratory Results WBC 6.5 x10^3/uL (4.8-10.8) 08/11/22 05:16 RBC 4.00 10^6/uL (4.20-5.40) L 08/11/22 05:16 Hgb 14.8 g/dL (12.0-16.0) 08/11/22 05:16 Hct 41.8 % (37.0-47.0) 08/11/22 05:16 MCV 104.5 fL (81.0-99.0) H 08/11/22 05:16 MCH 37.0 pg (27.0-31.0) H 08/11/22 05:16 MCHC 35.4 g/dL (32.0-36.0) 08/11/22 05:16 RDW 11.0 % (12.0-15.0) L 08/11/22 05:16 Plt Count 259 10^3/uL (130-450) 08/11/22 05:16 MPV 9.8 fL (7.9-10.8) 08/11/22 05:16 Neut # (Auto) 4.1 10^3/uL (1.5-6.6) 08/11/22 05:16 Lymph # (Auto) 0.7 10^3/uL (1.5-3.5) L 08/11/22 05:16 [place] # (Auto) 1.4 10^3/uL (0.0-1.0) H 08/11/22 05:16 Eos # (Auto) 0.0 10^3/uL (0.0-0.7) 08/11/22 05:16 Baso # (Auto) 0.0 10^3/uL (0.0-0.1) 08/11/22 05:16 Absolute Nucleated RBC 0.00 x10^3/uL 08/11/22 05:16 Total Counted 100 08/07/22 04:35 Band Neuts % (Manual) 12 % (0-10) H 08/07/22 04:35 Abnorm Lymph % (Manual) 0 % 08/07/22 04:35 Metamyelocytes % 2 % (-0) H 08/07/22 04:35 Nucleated RBC % 0.0 /100WBC 08/11/22 05:16 Neutrophils # (Manual) 7.2 10^3/uL (1.5-6.6) H 08/07/22 04:35 Lymphocytes # (Manual) 0.5 10^3/uL (1.5-3.5) L 08/07/22 04:35 Monocytes # (Manual) 0.4 10^3/uL (0.0-1.0) 08/07/22 04:35 Eosinophils # (Manual) 0.0 10^3/uL (0-0.7) 08/07/22 04:35 Basophils # (Manual) 0.0 10^3/uL (0-0.1) 08/07/22 04:35 Differential Comment MANUAL DIFFERENTIAL 08/07/22 04:35 Manual Slide Review Indicated 08/06/22 09:40 WBC Morphology NORMAL APPEARANCE (NORMAL) 08/07/22 04:35 Platelet Estimate NORMAL (130-450,000) (NORMAL) 08/07/22 04:35 Platelet Morphology NORMAL APPEARANCE (NORMAL) 08/07/22 04:35 RBC Morph Micro Appear NORMAL APPEARANCE (NORMAL) 08/07/22 04:35 Sodium 131 mmol/L (135-145) L 08/12/22 08:53 Potassium 3.3 mmol/L (3.5-5.0) L 08/12/22 08:53 Chloride 94 mmol/L (101-111) L 08/12/22 08:53 Carbon Dioxide 29 mmol/L (21-32) 08/12/22 08:53 Anion Gap 8.0 (6-13) 08/12/22 08:53 BUN 12 mg/dL (6-20) 08/12/22 08:53 Creatinine 0.7 mg/dL (0.4-1.0) 08/12/22 08:53 Estimated GFR (MDRD) 81 (>89) L 08/12/22 08:53 Glucose 162 mg/dL (70-100) H 08/12/22 08:53 Calcium 8.7 mg/dL (8.5-10.3) 08/12/22 08:53 Phosphorus 3.9 mg/dL (2.5-4.6) 08/12/22 08:53 Magnesium 2.0 mg/dL (1.7-2.8) 08/12/22 08:53 Total Bilirubin 0.7 mg/dL (0.2-1.0) 08/10/22 05:24 AST 26 IU/L (10-42) 08/10/22 05:24 ALT 34 IU/L (10-60) 08/10/22 05:24 Alkaline Phosphatase 38 IU/L (42-121) L 08/10/22 05:24 Total Creatine Kinase 183 IU/L (22-269) 08/07/22 09:15 B-Natriuretic Peptide 244 pg/mL (5-100) H 08/06/22 09:40 Total Protein 5.3 g/dL (6.7-8.2) L 08/10/22 05:24 Albumin 2.8 g/dL (3.2-5.5) L 08/10/22 05:24 Globulin 2.5 g/dL (2.1-4.2) 08/10/22 05:24 Albumin/Globulin Ratio 1.1 (1.0-2.2) 08/10/22 05:24 Lipase 26 U/L (22-51) 08/06/22 09:40 Vitamin B12 143 pg/mL (180-914) L 08/07/22 04:35 Folate 4.61 ng/mL (5.90 - >24.8) L 08/07/22 04:35 Nasal Adenovirus (PCR) NOT DETECTED 08/06/22 09:50 Nasal B. parapertussis DNA (PCR) NOT DETECTED 08/06/22 09:50 Nasal Coronavir 229E PCR NOT DETECTED 08/06/22 09:50 Nasal Coronavir HKU1 PCR NOT DETECTED 08/06/22 09:50 Nasal Coronavir NL63 PCR NOT DETECTED 08/06/22 09:50 Nasal Coronavir OC43 PCR NOT DETECTED 08/06/22 09:50 Nasal Enterovir/Rhinovir PCR NOT DETECTED 08/06/22 09:50 Nasal Influenza B PCR NOT DETECTED 08/06/22 09:50 Nasal Influenza A PCR NOT DETECTED 08/06/22 09:50 Nasal Parainfluen 1 PCR NOT DETECTED 08/06/22 09:50 Nasal Parainfluen 2 PCR NOT DETECTED 08/06/22 09:50 Nasal Parainfluen 3 PCR NOT DETECTED 08/06/22 09:50 Nasal Parainfluen 4 PCR NOT DETECTED 08/06/22 09:50 Nasal RSV (PCR) NOT DETECTED 08/06/22 09:50 Nasal B.pertussis DNA PCR NOT DETECTED 08/06/22 09:50 Nasal C.pneumoniae (PCR) NOT DETECTED 08/06/22 09:50 Mauricio Human Metapneumo PCR NOT DETECTED 08/06/22 09:50 Nasal M.pneumoniae (PCR) NOT DETECTED 08/06/22 09:50 Nasal SARS-CoV-2 (PCR) DETECTED A 08/06/22 09:50 Stl C. diff Tox B Gene NEGATIVE (NEGATIVE) 08/07/22 17:45 Ethyl Alcohol < 5.0 mg/dL 08/06/22 09:40
[2022-08-12] MEDS: POTASSIUM CHLOR 10 MEQ/100 ML 10 MEQ/100 ML BAG IV SCH ×2 (12:40→14:06)
[2022-08-13] MEDS: SODIUM CHLORIDE FLUSH 0.9% 10 ML SYRINGE IVP SCH ×3 (00:25→18:21)
[2022-08-13] MEDS: ZINC OXIDE 20% OINT 30 GM TUBE TOP PRN ×3 (00:25→18:21)
[2022-08-13] MEDS: IPRATROPIUM/ALBUTEROL 3 ML NEB INH SCH (06:27)
[2022-08-13] MEDS: ENOXAPARIN 40 MG/0.4 ML SYRINGE SUBQ SCH (08:13)
[2022-08-13] MEDS: METOPROLOL SUCCINATE 25 MG TABLET PO SCH (08:13)
[2022-08-13] MEDS: THIAMINE 100 MG TABLET PO SCH (08:14)
[2022-08-13] MEDS: POTASSIUM CHLORIDE 10 MEQ CAPSULE PO SCH ×2 (08:14→18:21)
[2022-08-13] MEDS: CYANOCOBALAMIN 500 MCG TABLET PO SCH (08:15)
[2022-08-13] MEDS: PRENATAL VITAMIN TABLET PO SCH (08:15)
[2022-08-13] MEDS: SACCHAROMYCES BOULARDII 250 MG CAPSULE PO SCH ×2 (08:15→18:21)
[2022-08-13] MEDS: CHOLECALCIFEROL 25 MCG TABLET PO SCH (08:15)
--- NOTE | 2022-08-13 12:58 | PROVIDER PROGRESS NOTE ---
Assessment/Plan - Problem List (1) AMS (altered mental status) Assessment/Plan: In the late morning today, she was seen by PT and OT. The therapists came to report to me the patient did worse: She is more confused, speaking less, not able to follow any commands today like she was yesterday, she did not realize she had a diarrheal bowel movement in her bed, and she was closing her left eyelid intermittently. Plan: Because of the ongoing diarrhea, I will work-up if she has a UTI, obtain UA, CBC>> WBC is normal but she has a very abnormal urinalysis however I do not know if it was a contaminated specimen since she just had diarrhea today Because of the alcoholic liver disease, I will check her ammonia level and LFTs today>> No ammonia elevation and LFTs are stable. Will recheck brain imaging, given the left eyelid that is closing and her decrease in speech. I will obtain brain MRI on her today. (2) Hypokalemia Assessment/Plan: All labs were reviewed. On 08/10 her K was 2.8 and she got replacements>> K 3.2 yesterday and K is 3.3 today. This could be from her diarrhea or from poor p.o. intake Plan: I will give her K riders again and increase her daily K po to BID Follow BMP daily Check magnesium to assure this is also replete I anticipate her discharge to be when her potassium is in a normal range. (3) Diarrhea Conclusion/Plan: Her watery diarrhea had improved, until it recurred today. Her stool for C. difficile by PCR test came back neg, when the diarrhea first started. This could have been a GI symptoms of COVID, or due to being on antibx Plan: Cont prn Imodium and scheduled probiotics BID (4) Alcohol abuse Conclusion/Plan: In 2017, she was seen in the ER for alcohol intoxication. Macrocytosis and elevated liver enzymes were present and felt to be due to alcohol abuse. Both of those lab indices of liver and her MCV are still present: her AST/ALT were 74/58 at admission. Her MCV is running 107. Patient reported at admission that she drinks 2 glasses of wine a day. When I updated the at bedside regarding her condition on 08/08, he reported that she drinks 2 to 4 glasses of wine per day. He said he has been trying to get her to decrease alcohol intake and she will not. I told the patient and at bedside on 08/08, that 1 glass of wine per day is allowed and felt to be safe for women A CIWA protocol was ordered 08/07 and she was scoring 7-8, and needed iv Ativan. I stopped the CIWA protocol and prn Ativan treatment 08/10. Folic acid level came back low and her B12 level came back low (all labs were reviewed). PT and OT started working with her. She has a shuffling gait, retropulsion and poor balance. So a CT scan was done, since there was none at admission, and this showed brain atrophy, no acute changes. I informed the of this result on 08/09, and that I suspect it could be from longstanding alcohol abuse Plan: Cont Thiamine 100 mg a day Cont Folic acid po daily She got B12 IM x1 then B12 p.o. daily ordered (5) Folic acid deficiency As per Labs Plan: Replacement ordered (6) Weakness generalized Conclusion/Plan: Present even before she came to the hospital. She was laying on the floor for a day and a half because she had no strength to get up. PT and OT reported a shuffling gait, retropulsion and marked confusion. T herefore a head CT was done, because it was not done at admission. This showed brain atrophy but no acute findings. I updated the about her weakness, the CT head result, and her overall condition. 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 I advised the patient and that she needs SNF and they both agreed. Then on 08/10 the refused a SNF, and so the new plan was to have her get PT and OT with a home health agency. Then on 08/11, the changed his mind and wants her to go to a SNF and was choiced (but he he didn't remember being told about Home Health agencies) Plan: I ordered a shower with the help of [facility] PT and OT treatment to continue while here. Resume the plan for PT and OT at a SNF (7) Poor memory The patient communicates minimally. Mostly she stares at the person speaking to her and we do not know if she does not hear us or does not understand us Head CT was done that shows atrophy. 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 I advised the patient and that she needs SNF and they both agreed. On 08/10 the refused a SNF, and so the new plan was to have her get PT and OT with a Home Health agency. On 08/11 the changed his mind and wants her to go to a SNF and he was choiced (but he didn't remember on 08/11 being told about Home Health agencies on 08/10. I submitted an APS report about the with poor memory being the caregiver of this patient with poor memory) Plan: Resume the plan for PT and OT at a SNF (8) Asthma with COPD with exacerbation Conclusion/Plan: Improved She likely has atopic syndrome with allergic rhinitis and asthma, which usually is well controlled, but this COVID infection destabilized her. She still has a productive cough. He has a much stronger cough than she did at admission since she is more alert and not as weak now. I stopped the iv Decadron Plan: Cont DuoNeb on a schedule QID while awake Cont Mucinex 600 mg p.o. twice daily Cont Singular 10 mg p.o. daily (9) Chronic diastolic heart failure Conclusion/Plan: This was based on an Echocardiogram from 2016. The pt was prescribed a beta-bloc ker and ARB, and Lasix to be taken on as needed basis. There has been no evidence of volume overload while here I stopped her IV fluids, which were ordered because of her weakness. Plan: Cont present meds and p.o. hydration (10) [place] Conclusion/Plan: Part of her confusion could be from poor hearing. Plan: She needs her hearing aids. was asked to bring those in. The agreed but then did not bring that in and said she does not like to wear them therefore he did not bring them in. (11) Hx of Hypertension Conclusion/Plan: She was on Metoprolol 25 mg daily at home. Plan: The admitting provider resumed her beta-noelle and I added parameters of when to hold the Metoprolol Qualifiers: Hypertension type: primary hypertension Qualified Code(s): I10 - Essential (primary) hypertension (12) Acute respiratory failure with hypoxia Assessment/Plan: Hypoxia has resolved. VS were reviewed and sats are 97% at rest on room air. And with activity, her O2 sat is 95% on room air (13) COVID-19 Assessment/Plan: She had a slight left lower lobe infiltrate on chest x-ray. She received azithromycin and Rocephin and is completing courses of those Contact and airborne isolation were ordered and Remdesivir was started. Remdesivir was stopped after the 08/09 dose, since she does not need suppl O2 at rest or with activity Empiric Rocephin for 5 days was planned and was completed Plan: Cont DVT prophylaxis with Lovenox 40 mg subcu. COVID increases her thrombosis risk. As per our infectious disease nurse, she may come off of isolation tomorrow, 08/14/22. - Current Meds Current Meds: Current Medications Generic Name Dose Route Start Last Admin Trade Name Freq PRN Reason Stop Dose Admin Cholecalciferol 50 mcg 08/07/22 17:00 08/13/22 08:15 Cholecalciferol 25 Mcg Tablet PO 50 mcg DAILY ADIA Administration Cyanocobalamin 500 mcg 08/09/22 09:00 08/13/22 08:15 Cyanocobalamin 500 Mcg Tablet PO 500 mcg DAILY ADIA Administration Enoxaparin Sodium 40 mg 08/06/22 13:00 08/13/22 08:13 Enoxaparin 40 Mg/0.4 Ml Syringe SUBQ 40 mg DAILY ADIA Administration Metoprolol Succinate 25 mg 08/07/22 09:23 08/13/22 08:13 Metoprolol Succinate 25 Mg Tablet PO 25 mg DAILY ADIA Administration Multi-Ingredient Ointment 1 applic 08/06/22 13:59 08/13/22 08:25 Zinc Oxide 20% Oint 30 Gm Tube TOP 1 applic PRN PRN Administration Skin Care Potassium Chloride 20 meq 08/12/22 17:00 08/13/22 08:14 Potassium Chloride 10 Meq Capsule PO 20 meq BIDWM ADIA Administration Multivit/Folic Acid/Iron 1 tab 08/08/22 09:00 08/13/22 08:15 Vitamin Tablet PO 1 tab DAILY ADIA Administration Saccharomyces Boulardii 250 mg 08/08/22 17:00 08/13/22 08:15 Saccharomyces Boulardii 250 Mg Capsule PO 250 mg BIDWM ADIA Administration Sodium Chloride 10 ml 08/06/22 12:06 08/07/22 22:17 Sodium Chloride Flush 0.9% 10 Ml Syringe IVP 10 ml PRN PRN Administration NEEDED PER PROVIDER ORDERS Sodium Chloride 10 ml 08/06/22 17:00 08/13/22 08:13 Sodium Chloride Flush 0.9% 10 Ml Syringe IVP 10 ml 0100,0900,1700 ADIA Administration Thiamine HCl 100 mg 08/08/22 09:00 08/13/22 08:14 Thiamine 100 Mg Tablet PO 100 mg DAILY ADIA Administration - Lab Result Fish Bone Diagrams: 08/13/22 13:16 08/13/22 13:16 - Additional Planning My Orders: My Active Orders 08/12/22 12:22 Miscellaenous Nursing Order [RC] QSHIFT Shower [RC] ONCE 08/12/22 17:00 Potassium Chloride [Micro-K] 20 meq PO BIDWM 08/13/22 AMMON[place] [CHEM] Stat CBC - COMP BLD CT W/AUTO DIFF [HEME] Stat CMP [COMPREHENSIVE METABOLIC PANEL] [CHEM] Urgent 08/13/22 12:57 UA w/ MICROSCOPIC, CULT IF [URIN] Stat Subjective - Subjective Patient Reports: Resting Comfortably, Other (Minimally communicative) Objective Vital Signs: Vital Signs - 24 hr 08/12/22 08/12/22 08/12/22 15:11 15:17 18:40 Temperature 37 C Heart Rate 69 86 Heart Rate [ 77 Brachial] Heart Rate [ Monitoring electrodes] Respiratory 16 17 18 Rate Blood Pressure [Left Brachial artery] Blood Pressure 126/62 [Right Brachial artery] O2 Saturation 95 08/13/22 08/13/22 08/13/22 00:00 06:29 08:00 Temperature 37.1 C 36.7 C Heart Rate 68 Heart Rate [ 79 Brachial] Heart Rate [ 85 Monitoring electrodes] Respiratory 14 16 20 Rate Blood Pressure 132/75 H 124/76 [Left Brachial artery] Blood Pressure [Right Brachial artery] O2 Saturation 93 96 Oxygen O2 Source [With Activity] Room air O2 Source Room air Oxygen Flow Rate 4 I&O (Last 24 Hrs): Intake and Output Totals x24h 08/11/22 08/12/22 08/13/22 23:59 23:59 23:59 Intake Total 850 820 120 Output Total 1300 400 Balance -450 420 120 General: No acute distress, Other (Sitting upright in her chair) HEENT: Mucous membr. moist/pink, Other (Disheveled) Neck: Supple Neuro: Alert, Disoriented, Other (Minimally communicative) Cardiovascular: No murmurs Respiratory: No respiratory distress Abdomen: Soft Extremities: No clubbing, No edema - Results Results: Laboratory Results WBC 6.5 x10^3/uL (4.8-10.8) 08/11/22 05:16 RBC 4.00 10^6/uL (4.20-5.40) L 08/11/22 05:16 Hgb 14.8 g/dL (12.0-16.0) 08/11/22 05:16 Hct 41.8 % (37.0-47.0) 08/11/22 05:16 MCV 104.5 fL (81.0-99.0) H 08/11/22 05:16 MCH 37.0 pg (27.0-31.0) H 08/11/22 05:16 MCHC 35.4 g/dL (32.0-36.0) 08/11/22 05:16 RDW 11.0 % (12.0-15.0) L 08/11/22 05:16 Plt Count 259 10^3/uL (130-450) 08/11/22 05:16 MPV 9.8 fL (7.9-10.8) 08/11/22 05:16 Neut # (Auto) 4.1 10^3/uL (1.5-6.6) 08/11/22 05:16 Lymph # (Auto) 0.7 10^3/uL (1.5-3.5) L 08/11/22 05:16 [place] # (Auto) 1.4 10^3/uL (0.0-1.0) H 08/11/22 05:16 Eos # (Auto) 0.0 10^3/uL (0.0-0.7) 08/11/22 05:16 Baso # (Auto) 0.0 10^3/uL (0.0-0.1) 08/11/22 05:16 Absolute Nucleated RBC 0.00 x10^3/uL 08/11/22 05:16 Total Counted 100 08/07/22 04:35 Band Neuts % (Manual) 12 % (0-10) H 08/07/22 04:35 Abnorm Lymph % (Manual) 0 % 08/07/22 04:35 Metamyelocytes % 2 % (-0) H 08/07/22 04:35 Nucleated RBC % 0.0 /100WBC 08/11/22 05:16 Neutrophils # (Manual) 7.2 10^3/uL (1.5-6.6) H 08/07/22 04:35 Lymphocytes # (Manual) 0.5 10^3/uL (1.5-3.5) L 08/07/22 04:35 Monocytes # (Manual) 0.4 10^3/uL (0.0-1.0) 08/07/22 04:35 Eosinophils # (Manual) 0.0 10^3/uL (0-0.7) 08/07/22 04:35 Basophils # (Manual) 0.0 10^3/uL (0-0.1) 08/07/22 04:35 Differential Comment MANUAL DIFFERENTIAL 08/07/22 04:35 Manual Slide Review Indicated 08/06/22 09:40 WBC Morphology NORMAL APPEARANCE (NORMAL) 08/07/22 04:35 Platelet Estimate NORMAL (130-450,000) (NORMAL) 08/07/22 04:35 Platelet Morphology NORMAL APPEARANCE (NORMAL) 08/07/22 04:35 RBC Morph Micro Appear NORMAL APPEARANCE (NORMAL) 08/07/22 04:35 Sodium 131 mmol/L (135-145) L 08/12/22 08:53 Potassium 3.3 mmol/L (3.5-5.0) L 08/12/22 08:53 Chloride 94 mmol/L (101-111) L 08/12/22 08:53 Carbon Dioxide 29 mmol/L (21-32) 08/12/22 08:53 Anion Gap 8.0 (6-13) 08/12/22 08:53 BUN 12 mg/dL (6-20) 08/12/22 08:53 Creatinine 0.7 mg/dL (0.4-1.0) 08/12/22 08:53 Estimated GFR (MDRD) 81 (>89) L 08/12/22 08:53 Glucose 162 mg/dL (70-100) H 08/12/22 08:53 Calcium 8.7 mg/dL (8.5-10.3) 08/12/22 08:53 Phosphorus 3.9 mg/dL (2.5-4.6) 08/12/22 08:53 Magnesium 2.0 mg/dL (1.7-2.8) 08/12/22 08:53 Total Bilirubin 0.7 mg/dL (0.2-1.0) 08/10/22 05:24 AST 26 IU/L (10-42) 08/10/22 05:24 ALT 34 IU/L (10-60) 08/10/22 05:24 Alkaline Phosphatase 38 IU/L (42-121) L 08/10/22 05:24 Total Creatine Kinase 183 IU/L (22-269) 08/07/22 09:15 B-Natriuretic Peptide 244 pg/mL (5-100) H 08/06/22 09:40 Total Protein 5.3 g/dL (6.7-8.2) L 08/10/22 05:24 Albumin 2.8 g/dL (3.2-5.5) L 08/10/22 05:24 Globulin 2.5 g/dL (2.1-4.2) 08/10/22 05:24 Albumin/Globulin Ratio 1.1 (1.0-2.2) 08/10/22 05:24 Lipase 26 U/L (22-51) 08/06/22 09:40 Vitamin B12 143 pg/mL (180-914) L 08/07/22 04:35 Folate 4.61 ng/mL (5.90 - >24.8) L 08/07/22 04:35 Nasal Adenovirus (PCR) NOT DETECTED 08/06/22 09:50 Nasal B. parapertussis DNA (PCR) NOT DETECTED 08/06/22 09:50 Nasal Coronavir 229E PCR NOT DETECTED 08/06/22 09:50 Nasal Coronavir HKU1 PCR NOT DETECTED 08/06/22 09:50 Nasal Coronavir NL63 PCR NOT DETECTED 08/06/22 09:50 Nasal Coronavir OC43 PCR NOT DETECTED 08/06/22 09:50 Nasal Enterovir/Rhinovir PCR NOT DETECTED 08/06/22 09:50 Nasal Influenza B PCR NOT DETECTED 08/06/22 09:50 Nasal Influenza A PCR NOT DETECTED 08/06/22 09:50 Nasal Parainfluen 1 PCR NOT DETECTED 08/06/22 09:50 Nasal Parainfluen 2 PCR NOT DETECTED 08/06/22 09:50 Nasal Parainfluen 3 PCR NOT DETECTED 08/06/22 09:50 Nasal Parainfluen 4 PCR NOT DETECTED 08/06/22 09:50 Nasal RSV (PCR) NOT DETECTED 08/06/22 09:50 Nasal B.pertussis DNA PCR NOT DETECTED 08/06/22 09:50 Nasal C.pneumoniae (PCR) NOT DETECTED 08/06/22 09:50 Mauricio Human Metapneumo PCR NOT DETECTED 08/06/22 09:50 Nasal M.pneumoniae (PCR) NOT DETECTED 08/06/22 09:50 Nasal SARS-CoV-2 (PCR) DETECTED A 08/06/22 09:50 Stl C. diff Tox B Gene NEGATIVE (NEGATIVE) 08/07/22 17:45 Ethyl Alcohol < 5.0 mg/dL 08/06/22 09:40
[2022-08-13 13:24] LABS: BASOPHILS % (AUTO) 0.1 %; EOSINOPHILS % (AUTO) 0.3 %; HCT - HEMATOCRIT 45.5 % (37.0-47.0); HGB - HEMOGLOBIN 16.2 g/dL (12.0-16.0); LYMPHOCYTES # (AUTO) 0.7 10^3/uL (1.5-3.5); LYMPHOCYTES % (AUTO) 7.4 %; MEAN CORPUSCULAR HEMOGLOBIN 37.9 pg (27.0-31.0); MEAN CORPUSCULAR HGB CONC 35.6 g/dL (32.0-36.0); MEAN CORPUSCULAR VOLUME 106.6 fL (81.0-99.0); MEAN PLATELET VOLUME 9.6 fL (7.9-10.8); MONOCYTES # (AUTO) 1.6 10^3/uL (0.0-1.0); MONOCYTES % (AUTO) 18.4 %; NEUTROPHILS # (AUTO) 6.1 10^3/uL (1.5-6.6); NEUTROPHILS % (AUTO) 68.6 %; PLT - PLATELET COUNT 339 10^3/uL (130-450); RED BLOOD COUNT 4.27 10^6/uL (4.20-5.40); RED CELL DISTRIBUTION WIDTH 11.5 % (12.0-15.0); WHITE BLOOD COUNT 8.9 x10^3/uL (4.8-10.8)
[2022-08-13 13:35] LABS: ALBUMIN 3.3 g/dL (3.2-5.5); ALBUMIN/GLOBULIN RATIO 1.1 (1.0-2.2); BILIRUBIN,TOTAL 1.3 mg/dL (0.2-1.0); CREATININE 0.6 mg/dL (0.4-1.0); POTASSIUM 4.5 mmol/L (3.5-5.0); TOTAL PROTEIN 6.2 g/dL (6.7-8.2)
[2022-08-13 18:36] LABS: GLUCOSE, URINE (UA) NEGATIVE (NEGATIVE); KETONES,URINE (UA) TRACE mg/dL (NEGATIVE); LEUKOCYTE ESTERASE, URINE LARGE (NEGATIVE); NITRITE,URINE NEGATIVE (NEGATIVE); OCCULT BLOOD,URINE SMALL (NEGATIVE); PH,URINE >=9.0 PH (5.0-7.5); PROTEIN,URINE 30 mg/dL (NEGATIVE); UROBILINOGEN,URINE 0.2 (NORMAL) E.U./dL (NORMAL)
[2022-08-13 18:59] LABS: BACTERIA,URINE Many /HPF (None Seen); BILIRUBIN,URINE MODERATE (NEGATIVE); CLARITY,URINE CLOUDY (CLEAR); CRYSTALS,URINE 11-25 Ca Oxalate /LPF; ICTOTEST,URINE POSITIVE; RBC,URINE TNTC /HPF (0-5); SQUAMOUS EPITHELIAL CELL,UR FEW Squamous (<= Few); YEAST,URINE PRESENT
--- NOTE | 2022-08-13 20:34 | MRI Report ---
PROCEDURE: BRAIN WO INDICATIONS: Stroke-like symptoms TECHNIQUE: Noncontrast axial T1 spin echo, axial T2 fast spin echo, sagittal and axial FLAIR, coronal T2 fast sp in echo, axial gradient echo, axial diffusion and ADC through the brain. COMPARISON: CT head 08/08/2022. FINDINGS: Image quality: There is motion artifact limiting evaluation. CSF Spaces: Basal cisterns are patent. No extra-axial fluid collections. There is moderate cerebral volume loss or prominence of the ventricles and sulci. Brain: No intracranial hemorrhage, mass, or mass effect. Diffusion-weighted images demonstrate no ac tony infarcts. [place]/white matter interface is preserved. There are subcortical and periventricular whi te matter T2 hyperintensity consistent with moderate chronic white matter small vessel ischemic duffy es. Brainstem appears normal. Normal intravascular flow voids are present. Skull and face: Calvarium has normal marrow signal. Orbits appear normal. Sinuses: There is mild mucosal thickening within ethmoid, maxillary, and sphenoid sinuses. Associated small air-fluid levels are present suggestive of acute sinusitis. There is partial fluid opacificati on of the right mastoid air cells suggestive of mild mastoiditis. IMPRESSION: 1. No infarct or other acute intracranial abnormality. 2. Moderate cerebral volume loss and chronic white matter small vessel ischemic changes. Reviewed by: Rodger Noble MD on 08/13/2022 8:33 PM PDT Approved by: Rodger Noble MD on 08/13/2022 8:33 PM PDT Station ID: [id number]
[2022-08-14] MEDS: SODIUM CHLORIDE FLUSH 0.9% 10 ML SYRINGE IVP SCH ×3 (00:50→17:01)
[2022-08-14] MEDS: LOPERAMIDE 2 MG CAPSULE PO PRN ×2 (08:22→18:33)
[2022-08-14] MEDS: SACCHAROMYCES BOULARDII 250 MG CAPSULE PO SCH ×2 (08:22→17:00)
[2022-08-14] MEDS: ENOXAPARIN 40 MG/0.4 ML SYRINGE SUBQ SCH (08:22)
[2022-08-14] MEDS: CHOLECALCIFEROL 25 MCG TABLET PO SCH (08:22)
[2022-08-14] MEDS: CYANOCOBALAMIN 500 MCG TABLET PO SCH (08:22)
[2022-08-14] MEDS: THIAMINE 100 MG TABLET PO SCH (08:22)
[2022-08-14] MEDS: POTASSIUM CHLORIDE 10 MEQ CAPSULE PO SCH ×2 (08:22→16:59)
[2022-08-14] MEDS: PRENATAL VITAMIN TABLET PO SCH (08:23)
[2022-08-14] MEDS: METOPROLOL SUCCINATE 25 MG TABLET PO SCH (08:23)
[2022-08-14] MEDS: ZINC OXIDE 20% OINT 30 GM TUBE TOP PRN ×2 (16:04→18:33)
--- NOTE | 2022-08-14 16:31 | PROVIDER PROGRESS NOTE ---
Progress Note August 14, 2022 4:18 PM Very pleasant lady. She states that I have taken care of her before but I did not remember. In reviewing the chart, she was admitted for acute respiratory failure with hypoxia due to COVID-pneumonia. She can come out of isolation today. She started working with PT and OT and yesterday, on August 13, she seemed to take a turn for the worse with regards to confusion, speaking less, not able to follow commands. She had diarrhea and kept on closing her left eyelid. Head CT had been done August 08 because she was confused and found on the floor. That head CT showed age-related changes and moderate bilateral sinusitis but no acute findings. As such an MRI was done August 13 and that showed no acute infarct or other acute intracranial abnormality. Moderate cerebral volume loss and chronic white matter disease with small vessel ischemic changes. In seeing her today, she is conversational. Emotionally withdrawn but appropriate. Active Medications Acetaminophen (Acetaminophen 325 Mg Tablet) 650 mg PO Q4HR PRN PRN Reason: Pain 1 to 4, or Fever Cholecalciferol (Cholecalciferol 25 Mcg Tablet) 50 mcg PO DAILY [facility] Last Admin: 08/14/22 08:22 Dose: 50 mcg Cyanocobalamin (Cyanocobalamin 500 Mcg Tablet) 500 mcg PO DAILY [facility] Last Admin: 08/14/22 08:22 Dose: 500 mcg Enoxaparin Sodium (Enoxaparin 40 Mg/0.4 Ml Syringe) 40 mg SUBQ DAILY [facility] Last Admin: 08/14/22 08:22 Dose: 40 mg Loperamide HCl (Loperamide 2 Mg Capsule) 2 mg PO QID PRN PRN Reason: Diarrhea Last Admin: 08/14/22 08:22 Dose: 2 mg Metoprolol Succinate (Metoprolol Succinate 25 Mg Tablet) 25 mg PO DAILY [facility] Last Admin: 08/14/22 08:23 Dose: 25 mg Miconazole Nitrate (Miconazole Cream 118 Ml Tube) 1 applic TOP TID [facility] Multi-Ingredient Ointment (Zinc Oxide 20% Oint 30 Gm Tube) 1 applic TOP PRN PRN PRN Reason: Skin Care Last Admin: 08/14/22 16:04 Dose: 1 applic Ondansetron HCl (Ondansetron 4 Mg/2 Ml Vial) 4 mg IVP Q6HR PRN PRN Reason: Nausea / Vomiting Potassium Chloride (Potassium Chloride 10 Meq Capsule) 20 meq PO BIDWM [facility] Last Admin: 08/14/22 08:22 Dose: 20 meq Multivit/Folic Acid/Iron ( Vitamin Tablet) 1 tab PO DAILY [facility] Last Admin: 08/14/22 08:23 Dose: 1 tab Saccharomyces Boulardii (Saccharomyces Boulardii 250 Mg Capsule) 250 mg PO BIDWM [facility] Last Admin: 08/14/22 08:22 Dose: 250 mg Sodium Chloride (Sodium Chloride Flush 0.9% 10 Ml Syringe) 10 ml IVP PRN PRN PRN Reason: NEEDED PER PROVIDER ORDERS Last Admin: 08/07/22 22:17 Dose: 10 ml Sodium Chloride (Sodium Chloride Flush 0.9% 10 Ml Syringe) 10 ml IVP 0100,0900,1700 [facility] Last Admin: 08/14/22 08:22 Dose: 10 ml Thiamine HCl (Thiamine 100 Mg Tablet) 100 mg PO DAILY [facility] Last Admin: 08/14/22 08:22 Dose: 100 mg Metoprolol Succinate [Toprol Xl] 25 mg PO DAILY 08/06/22 estradioL [Estradiol] 1 tab VG Q48H 08/06/22 Vitals: Temperature 36.6, heart rate 85, blood pressure 112/88, respirations 20, 95% on room air. 5 foot 1 is female, 56.2 kg. Sitting upright in bed, is pleasant and cooperative but very vague. Sentences trail off into silence. Not really able to tell me where she is or why she is here. Neck is supple and I do not hear any bruits. Lungs are clear. When she speaks to me there is no respiratory distress. She is comfortable sitting upright without any increased respiratory effort. Regular rate and rhythm, no murmur. Abdomen soft, nontender, hypoactive bowel sounds, incontinent of urine with a pure wick. Last BM was today. Nursing reports that she is having a buttock rash. But no skin breakdown. She does not have any ankle or leg edema. Neurologically she is very forgetful. Flat affect, almost withdrawn but she is cooperative. She is moving all extremities without any focal deficits. She is very hard of hearing. No tremors. And does respond to voice and commands. Albeit the command response is erratic as she tries to understand what I asked her to do. Lab: Sodium 129, potassium 4.5. Sodium has gradually drifted down from admit sodium of 136 in the 129. BUN 11, creatinine 0.6 Bili is 1.3. AST and ALT are normal. White cell count is 8.9, hemoglobin 16.2, hematocrit 45.5 - Problem List (1) AMS (altered mental status) Assessment/Plan: Sudden setback the morning of August 13. White cell count was normal. No fever. Urinalysis was done in the context of diarrhea and a very difficult straight cath so its quite contaminated. We thought about hepatic encephalopathy from a lcoholic liver disease but ammonia and LFTs were stable. We thought about stroke but the MRI showed no acute changes. She seems to be slowly improving today. I am meeting her for the first time and can only compare to the description of her personality yesterday, and she is slow to speak, seems emotionally withdrawn, but no focal deficits. Plan: Continue to work with PT and OT Continue to work for placement so that she can get physical rehab. (2) Hypokalemia Assessment/Plan: August 13 potassium was 4.3. No blood work ordered for today.. She has been low the through August 12. She was finally normal yesterday. This is after daily supplementation. Plan: Check BMP and see if I need to supplement. But I need to watch her sodium as well. (3) Diarrhea Conclusion/Plan: Her watery diarrhea had improved, until it recurred 08/13. Her stool for C. difficile by PCR test came back neg, when the diarrhea first started. This could have been a GI symptoms of COVID, or due to being on antibx Plan: Cont prn Imodium and scheduled probiotics BID (4) Alcohol abuse Conclusion/Plan: In 2016, she was seen in the ER for alcohol intoxication. Macrocytosis and elevated liver enzymes were present and felt to be due to alcohol abuse. Both of those lab indices of liver and her MCV are still present: her AST/ALT were 74/58 at admission. Her MCV is running 107. Patient reported at admission that she drinks 2 glasses of wine a day. When I updated the at bedside regarding her condition on 08/08, he reported that she drinks 2 to 4 glasses of wine per day. He said he has been trying to get her to decrease alcohol intake and she will not. I told the patient and The patient and her were told by the hospitalist on 08/08, that 1 glass of wine per day is allowed and felt to be safe for women A CIWA protocol was ordered 08/07 and she was scoring 7-8, and needed iv Ativan. CIWA protocol and prn Ativan treatment stopped 08/10. Folic acid level came back low and her B12 level came back low (all labs were reviewed). PT and OT started working with her. She has a shuffling gait, retropulsion and poor balance. So a CT scan was done, since there was none at admission, and this showed brain atrophy, no acute changes. The CT was discussed with her on August 09 and we told him that we suspect that she has longstanding alcohol abuse causing brain atrophy. No acute changes. Plan Cont Thiamine 100 mg a day Cont Folic acid po daily She got B12 IM x1 then B12 p.o. daily ordered (5) Folic acid deficiency As per Labs Plan: Replacement ordered (6) Weakness generalized Conclusion/Plan: Present even before she came to the hospital. She was laying on the floor for a day and a half because she had no strength to get up. PT and OT reported a shuffling gait, retropulsion and marked confusion. Th erefore a head CT was done, because it was not done at admission. This showed brain atrophy but no acute findings. We suspect that she has a sequela of chronic alcohol abuse. We feel that she needs to be transition to a fci facility and both the patient and the agreed. Then on 08/10 the refused a SNF, and so the new plan was to have her get PT and OT with a home health agency. Then on 08/11, the changed his mind and wants her to go to a SNF and was choiced (but he he didn't remember being told about Home Health agencies). Shower was ordered here so that the [facility] could help this patient. Plan: PT and OT treatment to continue while here. Resume the plan for PT and OT at a SNF (7) Poor memory The patient communicates minimally. Mostly she stares at the person speaking to her and we do not know if she does not hear us or does not understand us Head CT was done that shows atrophy. 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 We advised the patient and that she needs SNF and they both agreed. On 08/10 the refused a SNF, and so the new plan was to have her get PT and OT with a Home Health agency. On 08/11 the changed his mind and wants her to go to a SNF and he was choiced (but he didn't remember on 08/11 being told about Home Health agencies on 08/10. APS report was submitted about the with poor memory being the caregiver of this patient with poor memory) Plan: Resume the plan for PT and OT at a SNF (8) Asthma with COPD with exacerbation Conclusion/Plan: Improved She likely has atopic syndrome with allergic rhinitis and asthma, which usually is well controlled, but this COVID infection destabilized her. She still has a productive cough. She has a much stronger cough than she did at admission since she is more alert and not as weak now. She has completed Decadron and remdesivir. Plan: Cont DuoNeb on a schedule QID while awake Cont Mucinex 600 mg p.o. twice daily Cont Singular 10 mg p.o. daily (9) Chronic diastolic heart failure Conclusion/Plan: This was based on an Echocardiogram from 2015. The pt was prescribed a beta- noelle and ARB, and Lasix to be taken on as needed basis. There has been no evidence of volume overload while here.She has had a gallegos bstantial IV fluid intake. The she had 3550 cc combined between the normal saline of 1 L, and all her IV medications. She then had maintenance fluids started August 08 and received 1919 cc . On the she had 2177 cc. The 2183 cc. Maintenance IV fluids were discontinued on the .No congestive heart failure on exam. Lungs are clear, no hypoxia. No JVD. Plan: Cont present meds and p.o. hydration (10) [place] Conclusion/Plan: Part of her confusion could be from poor hearing. Plan: She needs her hearing aids. was asked to bring those in. The agreed but then did not bring that in and said she does not like to wear them therefore he did not bring them in. (11) Hx of Hypertension Conclusion/Plan: She was on Metoprolol 25 mg daily at home. Plan: The admitting provider resumed her beta-noelle and I added parameters of when to hold the Metoprolol Qualifiers: Hypertension type: primary hypertension Qualified Code(s): I10 - Essential (primary) hypertension (12) Acute respiratory failure with hypoxia Assessment/Plan: Hypoxia has resolved. VS were reviewed and sats are 97% at rest on room air. And with activity, her O2 sat is 95% on room air (13) COVID-19 Assessment/Plan: She had a slight left lower lobe infiltrate on chest x-ray. She received azithromycin and Rocephin and is completing courses of those Contact and airborne isolation were ordered and Remdesivir was started. Remdesivir was stopped after the 08/09 dose, since she does not need suppl O2 at rest or with activity Empiric Rocephin for 5 days was planned and was completed Decadron was completed Plan: Cont DVT prophylaxis with Lovenox 40 mg subcu. COVID increases her thrombosis risk. As per our infectious disease nurse, she may come off of isolation tomorrow, 08/14/22.
[2022-08-14 17:08] LABS: CALCIUM 8.8 mg/dL (8.5-10.3); CREATININE 0.7 mg/dL (0.4-1.0)
[2022-08-14] MEDS: MICONAZOLE CREAM 118 ML TUBE TOP SCH (23:24)
[2022-08-15] MEDS: SODIUM CHLORIDE FLUSH 0.9% 10 ML SYRINGE IVP SCH ×2 (00:08→08:39)
[2022-08-15] MEDS: MICONAZOLE CREAM 118 ML TUBE TOP SCH (05:00)
[2022-08-15 06:20] LABS: CALCIUM 8.5 mg/dL (8.5-10.3); CREATININE 0.6 mg/dL (0.4-1.0); POTASSIUM 4.4 mmol/L (3.5-5.0)
--- NOTE | 2022-08-15 07:40 | Discharge Plan ---
"Discharge Plan for SNF / FUAD - Discharge Plan And Transition Orders Problem Reviewed?: Yes Disposition: 03 SNF DC/Xfer Condition: Serious Allergies and Adverse Reactions: Allergies Allergy/AdvReac Type Severity Reaction Status Date / Time Penicillins Allergy Severe Hives Verified 08/06/22 09:26 melon Allergy Anaphylaxis Verified 08/14/22 14:03 Health Concerns: She was taken to the emergency room by ambulance on August 06 because she had increasing weakness, cough that has been going on for several days. She was so weak she could not get up and she slept on the floor in the nights leading to being sick. In the months before admission she has been having increasing urinary incontinence with her memory loss. No description of falls. She was found to have COVID-pneumonia with hypoxia. She was treated for COVID with remdesivir, Decadron, as well as empiric antibiotics for possible secondary pneumonia. Complications included hypokalemia, diarrhea, and moderate weakness requiring physical therapy. She has a long history of alcohol abuse and she went through mild alcohol withdrawal while here. Now that she is recovered from her acute illness and is no longer hypoxic she will require temporary rehab. She needs to increase her strength and functional mobility to allow her to live independently at home with her Plan of Treatment: Physical and Occupational Therapy until able to return to home. She does not need to be completely independent. does help at home. Care Goals: To be able to go from supine to sitting to standing without assist. Then walk to bathroom with walker and accomplish her own toileting needs. Assessment: Patient has memory loss. has memory loss. We have notified family and Adult Protective Services - SNF / FUAD Transition Orders Admit to (Facility): [facility] Under the care of (Name): [facility] Discharge Diagnosis: 1. Acute respiratory failure with hypoxia resolved 2. Asthma with COPD exacerbation resolved 3. COVID-19 infection 4. Chronic diastolic heart failure 5. Alcohol abuse 6. Alcohol withdrawal 7. Generalized weakness 8. History of hypertension 9. Diarrhea 10. Hypokalemia 11. Folic acid deficiency 12. Cognitive deficits, nonspecific if alcohol abuse or dementia 13. Deafness Medicare Certification Statement: I certify that [facility] half[facility] care is medically necessary on a continuing basis for any of the conditions for which she/he is receiving care during hospitalization. Notify PCP of admission and forward orders to primary provider for signature. Weight on admission and: Weekly Other Notification Orders: Call PCP immediately if patient develops dyspnea, chest pain/tightness or edema. House Bowel Program: Yes Additional Bowel Program Orders: If no BM after 2 days, nurse may give M.O.M. 30ml PO PRN and/or ducolax Supp 1 [place] and/or DENNY 250mg P.O., and/or senna 1-2 tabs PO. On day 3 nurse may give repeat above order until residents constipation is resolved. Annual Influenza Vaccine (between Oct 12 and May 11): Yes Two-step PPD per [facility] [id number] or approved exception documents: Yes Medication Orders: PLEASE REFER TO THE DISCHARGE MEDICATION LIST. - Diet Type: Geriatric Texture: Regular Liquids: Thin May have monthly special meal: Yes - Therapies | Activity Therapy: Evaluation | Treat if indicated: PT, OT Rehabilitation Potential: Return to independent living Activity: Activity as Tolerated Weight Bearing: Full Weight Assistance Devices: Walker Follow Up: GISSELL Cano"
[2022-08-15] MEDS: ENOXAPARIN 40 MG/0.4 ML SYRINGE SUBQ SCH (08:38)
[2022-08-15] MEDS: CHOLECALCIFEROL 25 MCG TABLET PO SCH (08:39)
[2022-08-15] MEDS: SACCHAROMYCES BOULARDII 250 MG CAPSULE PO SCH (08:39)
[2022-08-15] MEDS: POTASSIUM CHLORIDE 10 MEQ CAPSULE PO SCH (08:39)
[2022-08-15] MEDS: PRENATAL VITAMIN TABLET PO SCH (08:39)
[2022-08-15] MEDS: CYANOCOBALAMIN 500 MCG TABLET PO SCH (08:39)
[2022-08-15] MEDS: THIAMINE 100 MG TABLET PO SCH (08:39)
[2022-08-15] MEDS: METOPROLOL SUCCINATE 25 MG TABLET PO SCH (08:41)
[2022-08-15 11:44] VITALS: BP 108/61
--- NOTE | 2022-08-15 16:20 | DISCHARGE SUMMARY ---
Discharge Summary Admit Date: 08/06/22 Discharge Date: 08/15/22 Discharging Provider: Shazia Coyle MD Primary Care Provider: GISSELL Cano Code Status: Do Not Attempt Resuscitation Condition at Discharge: Fair Discharge Disposition: 03 SNF DC/Xfer - DIAGNOSES Discharge Diagnoses with Status of Each Condition: 1. Acute respiratory failure with hypoxia resolved 2. Asthma with COPD exacerbation resolved 3. COVID-19 infection 4. Chronic diastolic heart failure 5. Alcohol abuse 6. Alcohol withdrawal 7. Generalized weakness 8. History of hypertension 9. Diarrhea 10. Hypokalemia 11. Folic acid deficiency 12. Cognitive deficits, nonspecific if alcohol abuse or dementia 13. Deafness - HPI History of Present Illness: She tried getting her hearing aids for me, but after 10 minutes of struggling s he just could not get them in and I spoke to her in a very loud voice through the mask. Made it difficult to get a history. She is essentially a very reclusive elderly woman who lives with her . They have been for 59 years and they live in their own home. [place] have been living [place] the [place] for [place] years because "I just [place]". They came from [place]. She is an ex-smoker. But only smoked a few years when she was in college to stop smoking at the age of 22. That would have been about 1962. She likes drinking 2 glasses of wine a night. She shrugs and says that some people would regard her as "an alcoholic" in the past. But she did not drink anything but 1 now. No history of withdrawal or seizures. She is followed by Preeti Gayle in the [address] [facility]. She has had increasing cough, chest congestion, that finally made her so weak that she had to come in. Starting yesterday, she was so weak that she could not get up and started sleeping on the floor. She is incontinent of urine but she has been incontinent for months. She has no appetite. Even though the cough sounds really phlegmy, she is unable to bring up any phlegm. She denies abdominal pain, diarrhea, urgency, frequency. She is usually independent with activities of daily living. Temperature was 36.3, heart rate 106, blood pressure 152/84, respirations 24 and she was 95% on room air. When she was in the gurney, at rest, without speaking, she maintained his O2 sat. When she started speaking or try to rearrange her self on the gurney O2 sat would drop to 88%. Tremendous coughing and wheezing. Chest x-ray had a patchy left basilar opacity, either atelectasis or infection. PCR panel was positive for COVID-19. Sodium was 129, BUN 5, creatinine 0.6. Total bili 1.4, AST 134, ALT 84. BNP 244. White cell count was 8 point scratch that was cell count was 11.8. Hemoglobin 15.7. Alcohol less than 5. In the emergency room she received fluids, several nebulizer treatments, Solu- Medrol. She continued to be coughing, short of breath, and dropping her O2 sats when she spoke. Dr. Krueger and I discussed this case. Overall she is an 81-year-old female with no major medical illnesses but she would be at risk for severe complications from COVID-pneumonia. I am admitting her inpatient on the basis of her tachypnea, tachycardia, hypoxia with COVID infection causing acute bronchitis.She is startled that she has COVID. She says that she never leaves the house. The only time she leaves to go see her doctor at the clinic. Her is the one that goes to the grocery store and brings back groceries, etc. He is not ill. She does have occasional neighbors that come visit but she has not seen him in weeks and as far she knows no one is ill. In reviewing her outpatient chart, she had an episode of chest pain in February 2015. It was pleuritic, worse when she laid down. She had a pleural effusion and started on Lasix. Given the diagnosis of congestive heart failure but it was not associated with shortness of breath, leg edema or weight gain. When she took the Lasix she was back to normal and did not have any concerns. Echocardiogram showed a normal ejection fraction. She was seen in consult by [facility] cardiology in April 2015. The managing consultant reviewed the history and feels that her chest pain was most likely pleurisy or shingles which was present at that time. It was recommended that she would benefit from a low-dose beta-noelle and/or an MESFIN inhibitor for diastolic dysfunction that was mild. The patient was not in favor of this. History - Past Medical History Cardiovascular: reports: Congestive heart failure (Diastolic. 2 echocardiogram showed normal ejection fractions.) Respiratory: reports: Asthma (Usually mild and associated with allergies. 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 - Past Surgical History General: reports: Colonoscopy (2006, normal) /MECHANICAL LABORATORY TECHNICIAN: reports: Other (Lumpectomy 2001) HEENT: reports: Cataracts - CONSULTS | PROCEDURES Procedures: Chest x-ray August 06 with patchy left basilar airspace opacity, either atelectasis or infection Head CT August 08 without evidence of acute intracranial abnormality. Age-related volume loss and extensive white matter chronic disease, mild bilateral paranasal sinusitis. Brain MRI with no infarct or other acute abnormality. Moderate cerebral volume loss and chronic white matter small vessel ischemic changes. Blood cultures from August 06 without growth after 5 days Sputum aspirate respiratory culture August 06 with 4+ mixed oropharyngeal peyton Urine culture from August 13 has coag negative Staphylococcus to be further id entified. - HOSPITAL COURSE Hospital Course: For her COVID-pneumonia and hypoxia that induced a COPD exacerbation she was treated with empiric Rocephin for 5 days. Completed. Remdesivir was started and but it was stopped after her August 09 dose since she stopped requiring supplemental O2. She did complete Decadron therapy as well. She has atopic syndrome with allergic rhinitis and asthma and that with her COVID infection is what most likely caused wheezing. That was treated with steroids, DuoNeb, Mucinex and Singulair. She has a history of diastolic heart failure and echo and was prescribed a beta-noelle and ARB in 2016 with Lasix to be taken as as- needed basis. We watch her carefully for fluid overload and she did well in spite of positive fluid balance for several days. Her deafness sometimes makes it hard to communicate with her. Her did bring in her hearing aids. As she recovered from her lung infection and its complications, we found her to have significantly poor memory. She will stare at the person speaking to her an d we do not know if she does not hear us or if she does not understand this. 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 She was identified as having a folic acid deficiency and was started on thiamine, folic acid, and received 1 B12 injection IM and then the rest of her B12 was p.o. We noted in her record that she was seen in the ER for alcohol intoxication in 2016. She has macrocytosis and elevated liver enzymes. She drinks 2 to 4 glasses of wine per day. On a CIWA protocol she was scoring 7-8 points and required as needed low-dose Ativan. That was able to be stopped on August 10. After all of this, she was weakened, deconditioned. CT shows brain atrophy but no acute changes. She walks with a slow shuffling gait, retropulsion and marked confusion. As such we have recommended detention facility for rehab. The initially agreed, and that he did not remember that and said no. Then he remembered and said yes again. is manifesting memory loss problems as well. We have made referrals to Adult Protective Services on the basis of of these elderly patients who may need more support and they are getting but refused to accept it from family or friends. Metoprolol was resumed for hypertension. C. difficile toxin was negative for diarrhea and she was treated with Imodium and probiotics. Hypokalemia was treated with subsequent doses of supplementation. Potassium was 4.4 at discharge. Before she was admitted, the patient has a long history of urinary incontinence due to atrophic vaginitis. She has a vaginal tablet that is inserted into her vagina. That was not given during this admission but it is resumed at discharge. At discharge temperature was 36.3. Heart rate 82. Blood pressure 108/61. Respirations 18. 98% on room air. She is an elderly woman with a flat affect. Stares when I walked in the room and sometimes has psychomotor slowing when she responds to my questions. She appears in no acute distress. No tremors, agitation. Neck is supple. No JVD. Lungs have prolonged exhalation phase. 1 wheeze audible and none after repetitive breathing. No use of accessory muscles. No tachypnea unless she walks more than 5 steps. PT reports that she can do 2 or 3 steps but requires constant prompting. However the constant prompting results and confusion. She is hard of hearing. She is able to be cued to scoot forward to the edge of the bed for seated weight shifting practice and requires min to moderate assist x1 for scooting. Unable to maintain her feet on the floor. Mild retropulsion in the seated position and standing position. She is unable to stand for longer than 5 seconds due to retropulsion. PT and OT have cued her both with visual, manual and verbal cueing but she is unable to perform sit to stand due to her confusion. She was placed in a chair, feet are elevated, food in front of her. She will need continued PT and OT services until she progresses to goals of improving her overall functional mobility to be able to return back to home. They recommend a Josee lift for transfers with the patient due to retropulsion and high fall risk until she is able to do this on her own. Greater than 30 minutes was spent coordinating discharge This document was made in part using voice recognition software. While efforts are made to proofread this document, sound alike and grammatical errors may occur. - ALLERGIES Allergies/Adverse Reactions: Allergies Allergy/AdvReac Type Severity Reaction Status Date / Time Penicillins Allergy Severe Hives Verified 08/06/22 09:26 melon Allergy Anaphylaxis Verified 08/14/22 14:03 - MEDICATIONS Home Medications: Ambulatory Orders Medication Instructions Recorded Confirmed Acetaminophen [Tylenol] 650 mg PO Q4HR PRN tab 08/15/22 Cholecalciferol [Vitamin D3] 50 mcg PO DAILY tab 08/15/22 Cyanocobalamin [Vitamin B-12] 500 mcg PO DAILY tab 08/15/22 Estradiol [Vagifem] 10 mcg VG Q48H 08/15/22 08/15/22 Loperamide [Imodium] 2 mg PO QID PRN cap 08/15/22 Metoprolol Succinate [Toprol Xl] 25 mg PO DAILY #0 08/15/22 08/06/22 Potassium Chloride [Micro-K] 20 meq PO BIDWM cap 08/15/22 Thiamine [Vitamin B-1] 100 mg PO DAILY tab 08/15/22 Zinc Oxide 20% Oint [Zinc Oxide] 1 applic TOP PRN PRN each 08/15/22 - LABS Result Diagrams: 08/13/22 13:16 08/15/22:36
== END 2022-08-15 12:37 | DRG 177 ==
LOC: EDBD → EDUNIT# → ED 09:19 → MS3 12:06 → OBSVTOIN 12:06 → MS2 08-09 14:55
PROVIDERS: ADMIT Specialist; ATTEND Specialist
DX: J18.9 Pneumonia, unspecified organism (principal); U07.1 COVID-19; J45.909 Unspecified asthma, uncomplicated; I50.9 Heart failure, unspecified; I49.3 Ventricular premature depolarization; R07.9 Chest pain, unspecified; R09.02 Hypoxemia; Z79.899 Other long term (current) drug therapy; J12.82 Pneumonia due to coronavirus disease 2019; J96.01 Acute respiratory failure with hypoxia; J44.1 Chronic obstructive pulmonary disease with (acute) exacerbation; I50.32 Chronic diastolic (congestive) heart failure; F10.139 Alcohol abuse with withdrawal, unspecified; J44.0 Chronic obstructive pulmonary disease with (acute) lower respiratory infection; E87.1 Hypo-osmolality and hyponatremia; E87.6 Hypokalemia; E53.8 Deficiency of other specified B group vitamins; I11.0 Hypertensive heart disease with heart failure; H91.90 Unspecified hearing loss, unspecified ear; J20.8 Acute bronchitis due to other specified organisms; N95.2 Postmenopausal atrophic vaginitis; D75.89 Other specified diseases of blood and blood-forming organs; R19.7 Diarrhea, unspecified; R32 Unspecified urinary incontinence; R41.82 Altered mental status, unspecified; R53.1 Weakness; R74.01 Elevation of levels of liver transaminase levels; Z87.891 Personal history of nicotine dependence; Z88.0 Allergy status to penicillin; Z91.018 Allergy to other foods
CPT/HCPCS: 36415; 70450; 70551; 71045; 80048; 80053; 81001; 82140; 82550; 82607; 82746; 83690; 83735; 83880; 84100; 85025; 87040; 87070; 87086; 87205; 87493; 87633; 93005; 94640; 96365; 96375; 97163; 97167; 97530; 97535; 99285; A9270; G0480; J1650; J2060; 80320

== ENCOUNTER 2022-08-15 12:48 | Outpatient (CLI) | payer MEDICARE, BC | END 2022-08-15 12:49 | LOC: EMS 12:48 | PROVIDERS: ATTEND Specialist | DX: R53.1 Weakness (principal); R41.82 Altered mental status, unspecified; J18.9 Pneumonia, unspecified organism; J44.1 Chronic obstructive pulmonary disease with (acute) exacerbation; Z74.01 Bed confinement status | CPT/HCPCS: A0425; A0428 ==

== ENCOUNTER 2023-10-28 13:08 | Outpatient (CLI) | payer MEDICARE, BC | END 2023-10-28 23:59 | disposition EMS.NT | LOC: EMS 13:08 | DX: R53.1 Weakness (principal); S40.012A Contusion of left shoulder, initial encounter; W18.39XA Other fall on same level, initial encounter; Y92.003 Bedroom of unspecified non-institutional (private) residence as the place of occurrence of the external cause ==

== ENCOUNTER 2023-10-29 09:29 | Outpatient (CLI) | payer MEDICARE, BC | END 2023-10-29 23:59 | disposition critical access hospital (66) | LOC: EMS 09:29 | DX: S40.022A Contusion of left upper arm, initial encounter (principal); M25.412 Effusion, left shoulder; W01.0XXA Fall on same level from slipping, tripping and stumbling without subsequent striking against object, initial encounter | CPT/HCPCS: A0425; A0429 ==

== ENCOUNTER 2023-10-29 09:53 | Emergency (ER) | payer MEDICARE, BC ==
[2023-10-29 10:30] VITALS: BP 153/87; O2SAT 96
--- NOTE | 2023-10-29 10:34 | XRAY Report ---
PROCEDURE: Shoulder 2+V LT INDICATIONS: trauma TECHNIQUE: 3 views of the shoulder were acquired. COMPARISON: Chest radiograph dated 08/06/2022. FINDINGS: Bones: Acute comminuted fracture involving proximal humeral shaft/surgical neck with involvement of greater and lesser tuberosities and displaced fractured tuberosity fragments. Osteoarthritic changes are noted in acromioclavicular joint and glenohumeral joint. No other fracture or dislocation. No aime picious bony lesions. Old healed fractures are again noted involving left posterior lateral sixth thr ough ninth ribs. Soft tissues: Significant soft tissue swelling adjacent to left shoulder fracture site is seen. No gallegos spicious soft tissue calcifications. The visualized lungs are within normal limits. IMPRESSION: Acute comminuted, displaced and impacted left proximal humeral/surgical neck fracture with extension to involve greater and lesser tuberosities as above. Left shoulder joint osteoarthritis. No other fracture or dislocation. Significant soft tissue swelling adjacent to left shoulder fracture site. Old healed left posterior lateral mid rib fractures. Reviewed by: Yan Agrawal MD on 10/29/2023 10:33 AM PDT Approved by: Yan Agrawal MD on 10/29/2023 10:33 AM PDT Station ID: [id number]
--- NOTE | 2023-10-29 11:23 | ED Physician Documentation ---
PD HPI UPPER EXT INJURY - Stated complaint Stated Complaint: GLF - Chief complaint Chief Complaint: Ext Problem - History obtained from History obtained from: Patient, Family () - History of Present Illness Location: Left, Shoulder Type of injury: Fall Where injury occurred: Home Timing - onset: How many days ago (3) Timing - duration: Days (3) Timing - details: Abrupt onset, Still present Improved by: Rest, Immobilization Worsened by: Moving, Palpating Associated symptoms: Swelling, Discolored Contributing factors: No: Anticoagulated, Prior ortho surgery, Work related Similar symptoms before: Has not had sx before Recently seen: Not recently seen - Additonal information Additional information: Annalisa Patel is an 82-year-old female with history of hypertension who routinely uses a walker in her home. She will have her knees collapse periodically and she will fall. She is uncertain when this fall happened but she has had swelling and discoloration in the left shoulder for about 3 days. Her has been helping her in and out of bed as she usually does when she is unable to use her walker. Review of Systems Constitutional: denies: Fever Ears: denies: Ear pain Nose: denies: Congestion Throat: denies: Sore throat Respiratory: denies: Cough GI: denies: Nausea, Vomiting, Constipation, Diarrhea : denies: Dysuria, Frequency Skin: denies: Rash Musculoskeletal: reports: Extremity pain, Joint pain, Joint swelling. denies: Neck pain, Back pain Neurologic: denies: Generalized weakness, Focal weakness, Numbness PD PAST MEDICAL HISTORY - Past Medical History Past Medical History: Yes Cardiovascular: Congestive heart failure Respiratory: Asthma Neuro: Peripheral neuropathy Endocrine/Autoimmune: None GI: None CALIBRATION CHECKER: Other : Incontinence, Other HEENT: Chronic hearing loss, Other Psych: None Musculoskeletal: Fibromyalgia Derm: Other - Past Surgical History Past Surgical History: No General: Colonoscopy /CALIBRATION CHECKER: Other HEENT: Cataracts - Present Medications Home Medications: Ambulatory Orders Medication Instructions Recorded Confirmed Acetaminophen [Tylenol] 650 mg PO Q4HR PRN tab 08/15/22 Cholecalciferol [Vitamin D3] 50 mcg PO DAILY tab 08/15/22 Cyanocobalamin [Vitamin B-12] 500 mcg PO DAILY tab 08/15/22 Estradiol [Vagifem] 10 mcg VG Q48H 08/15/22 08/15/22 Loperamide [Imodium] 2 mg PO QID PRN cap 08/15/22 Metoprolol Succinate [Toprol Xl] 25 mg PO DAILY #0 08/15/22 08/06/22 Potassium Chloride [Micro-K] 20 meq PO BIDWM cap 08/15/22 Thiamine [Vitamin B-1] 100 mg PO DAILY tab 08/15/22 Zinc Oxide 20% Oint [Zinc Oxide] 1 applic TOP PRN PRN each 08/15/22 - Allergies Allergies/Adverse Reactions: Allergies Allergy/AdvReac Type Severity Reaction Status Date / Time Penicillins Allergy Severe Hives Verified 10/29/23 10:02 melon Allergy Anaphylaxis Verified 10/29/23 10:02 - Social History Does the pt smoke?: No Smoking Status: Never smoker Does the pt drink ETOH?: Yes Does the pt have substance abuse?: No - Immunizations Immunizations are current?: Yes - POLST Patient has POLST: No PD ED PE NORMAL - Vitals Vital signs reviewed: Yes (Hypertensive) - General General: No acute distress, Well developed/nourished - HEENT HEENT: Atraumatic, PERRL, EOMI - Neck Neck: Supple, no meningeal sign, No bony TTP - Respiratory Respiratory: No respiratory distress - Derm Derm: Normal color, Warm and dry, No rash - Extremities Extremities: Other (There is swelling and ecchymosis to the left shoulder there is pain with reduced range of motion. There is not a discoloration along the ulnar surface of the forearm.) - Neuro Neuro: Alert and oriented X 3, hebrew teacher 2-12 intact, No motor deficit, No sensory deficit, Normal speech Eye Opening: Spontaneous Motor: Obeys Commands Verbal: Oriented GCS Score: 15 - Psych Psych: Normal mood, Normal affect Results - Vitals Vitals: Vital Signs - 24 hr 10/29/23 09:58 Temperature 36.3 C L Heart Rate 76 Respiratory 20 Rate Blood Pressure 153/87 H O2 Saturation 96 Oxygen O2 Source [] Room air O2 Source Room air - Rads (name of study) shoulder Relevant Findings:: Prelim report reviewed (: Acute comminuted, displaced and impacted left proximal humeral/surgical neck fracture with extension to involve greater and lesser tuberosities as above. Left shoulder joint osteoarthritis. No other fracture or dislocation. Significant soft tissue swelling old healed left rib fractures), EMP independent interpretation of test, See rad report PD Medical Decision Making - ED course Complexity details: considered differential, d/w patient, d/w family ED course: 82-year-old female who has had a fall of undetermined timing but this does look like about 3 days. She does have some significant discoloration and ecchymosis associated with this but she does not have a stripe along the ulnar surface of the forearm. She has been getting around in her home with the help of her as she is not able to use her walker. I spent some time with a couple about their use of the walker and what happens when the patient is unable to use a walker and the assures me that this has happened a number of times over the last 2 years and he is able to help her out of bed to the bathroom and to eat and get water. She is placed into a sling and I given a referral to orthopedics.I did not find on review of system a specific entity to evaluate for a reason for her fall. Departure - Departure Disposition: 01 Home, Self Care Clinical Impression: Proximal humerus fracture Qualifiers: Encounter type: initial encounter Fracture type: closed Fracture morphology: other fracture Fracture alignment: displaced Laterality: left Qualified Code(s): S42.292A - Other displaced fracture of upper end of left humerus, initial encounter for closed fracture Condition: Stable Instructions: ED Fx Shoulder Follow-Up: Elen Smith ARNP [Primary Care Provider] - Oscar Brady MD [Provider Admit Priv/Credential] - Comments: Annalisa, today it looks like you have a fracture to your proximal humerus and this usually heals up well with a sling. Your will have to help you get in and out of bed and into the bathroom and to the table, as you will not be able to use your walker for about 6 weeks. A follow-up with orthopedics is indicated and I have given you the name of a orthopedic doctor here in town. Forms: PCP List Discharge Date/Time: 10/29/23 11:42
== END 2023-10-29 11:42 | disposition home or self-care (01) ==
LOC: EDUNIT# → ED 09:53
DX: S42.212A Unspecified displaced fracture of surgical neck of left humerus, initial encounter for closed fracture (principal); W18.30XA Fall on same level, unspecified, initial encounter; Z91.81 History of falling
CPT/HCPCS: 99283; 99284

== ENCOUNTER 2023-10-30 08:45 | Outpatient (CLI) | payer MEDICARE, BC | END 2023-10-30 23:59 | disposition EMS.NT | LOC: EMS 08:45 | DX: M25.512 Pain in left shoulder (principal) ==